=== PATIENT | male | born 1965 | race African-American/Black ===

== ENCOUNTER 2017-08-07 10:49 | Inpatient (IN) | payer OTHER ==
[~2017-08-07] VITALS: Ht 182.9 cm; Wt 145.7 kg
[2017-08-07] VITALS (7 sets, daily range): BP systolic 141–214; BP diastolic 91–157
[~2017-08-07 10:49] MED LIST: ADULT LOW DOSE81 MG PO; ALBUTEROL2.5 MG/0.5 INH; ASPIR 8181 MG PO; ATENOLOL 50 MG50 M1; CARVEDILOL25 MG PO; CELEBREX 200 M200 MG; CITRATE OF MAG296 ML PO; CLEOCIN HCL300 MG PO; CLONIDINE; CLOTRIMAZOLE-BE15 GM; COREG25 MG PO; COZAAR 25 MG TA25 M1 PO; CYCLOBENZAPRINE10 MG; FLOMAX0.4 MG PO; HYDROCHLOROTHIA25 M1; HYDROCODON-ACE1 EAC1; HYDROCODON-ACE1 EAC7 PO; HYDROCODONE-AP1 EAC6 PO; KLOR-CON 1010 MEQ; LASIX 20 MG TAB20 MG PO; LASIX 40 MG TAB40 M2 PO; LEVAQUIN 750 M750 MG PO; LEXAPRO 10 MG T10 MG; LIPITOR10 MG PO; LISINOPRIL20 MG PO; MEDROLDOSEPACK PO; OMEPRAZOLE 20 M20 M1 PO; POTASSIUM20 PO; PREDNISONE 10 M10 MG PO; PRINIVIL10 MG PO; QUINU10 PD PO; TOPROL XL50 MG PO; ULTRAM 50MG TAB50 MG; VALIUM5 MG PO; VIAGRA100 MG PO; VICODIN 5-5001 EACH PO; XANAX 0.5 MG0.5 MG PO
[2017-08-07 11:20] LABS: ABSOLUTE EOSINOPHILS 0.3 thou/uL (0.0-0.7); ABSOLUTE LYMPHOCYTES 2.1 thou/uL (0.8-5.3); ABSOLUTE MONOCYTES 0.6 thou/uL (0.0-1.2); ABSOLUTE NEUTROPHILS 3.7 thou/uL (1.6-8.1); BASOPHILS 0.7 %; HEMATOCRIT 43.2 % (42.0-52.0); HEMOGLOBIN 14.2 gm/dL (14.0-18.0); LYMPHOCYTES 31.6 %; MCH 30.1 pg (26.0-34.0); MCHC 32.8 g/dL (28.0-37.0); MCV 91.8 fL (80.0-100.0); MONOCYTES 8.6 %; MPV 8.1 fl. (7.2-11.1); NUCLEATED RBCS 0 /100WBC; PLATELET COUNT* 263 thou/uL (150-400); POLYS 55.1 %; RBC 4.71 mil/uL (4.50-6.00); RDW-CV 16.6 % (10.5-14.5); WBC 6.8 thou/uL (4.0-11.0)
[2017-08-07 11:29] LABS: ANION GAP 11 mmol/L (7-16); BUN 17 mg/dL (7-18); CALCIUM 7.8 mg/dL (8.5-10.1); CHLORIDE 106 mmol/L (98-107); CO2 25 mmol/L (21-32); CREATININE 1.3 mg/dL (0.6-1.3); GLUCOSE 102 mg/dL (70-99); POTASSIUM 3.6 mmol/L (3.5-5.1); SODIUM 142 mmol/L (136-145)
[2017-08-07 11:30] LABS: APTT 30.3 Seconds (25.0-31.3)
[2017-08-07 11:40] LABS: ALBUMIN 3.1 g/dL (3.4-5.0); ALKALINE PHOSPHATASE 92 U/L (46-116); NT-PRO BRAIN NAT PEPTIDE 4096 pg/mL (<300); SGOT 15 U/L (15-37); SGPT 17 U/L (30-65); TOTAL BILIRUBIN 0.6 mg/dL (<0.1-1.0); TOTAL PROTEIN 7.1 g/dL (6.4-8.2); TROPONIN-I LEVEL <0.06 ng/mL (<0.06)
--- NOTE | 2017-08-07 12:29 | NUR ---
AT 1055 DR. SEGURA NOTIFIED OF PT B/P.
[2017-08-07] MEDS ORDERED: COREG25 MG PO (14:03)
[2017-08-07] MEDS ORDERED: LOSARTAN-HCTZ1 EAC1 PO (14:04)
[2017-08-07] MEDS ORDERED: ATROVENT HFA14 GM INH (14:05)
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
--- NOTE | 2017-08-07 14:49 | EKG ---
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1965 Requested By: Aldo Bliss Order Number: [id number] MD: Jorge Luis Valencia Measurements Intervals [place] Rate: 82 P: 17 NH: 190 QRS: -38 QRSD: 100 T: 90 QT: 414 QTc: 484 Interpretive Statements Sinus rhythm Probable left atrial enlargement Abnormal R-wave progression, late transition LVH with secondary repolarization abnormality Inferior infarct, old Compared to ECG 05/09/2017 17:42:48 Early repolarization now present Myocardial infarct finding still present Electronically Signed On 08-07-2017 14:49:29 CDT by Jorge Luis Valencia [email or web address] <ELECTRONICALLY SIGNED> By: Jorge Luis Valencia MD, FACC 08/07/17 1449 1109 1109 Jorge Luis Valencia MD, FAC /EPI
[2017-08-08 00:59] VITALS: BP 135/80
[2017-08-08 04:13] VITALS: BP 160/89
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
[2017-08-08 05:45] LABS: CALCIUM 8.7 mg/dL (8.5-10.1); CREATININE 1.6 mg/dL (0.6-1.3); POTASSIUM 4.2 mmol/L (3.5-5.1)
[2017-08-08 08:00] VITALS: BP 160/89
[2017-08-08 08:10] LABS: HIV-1/HIV-2 ANTIBODY Non Reactive (Non Reactive)
[2017-08-08 11:02] LABS: ABSOLUTE BASOPHILS 0.1 thou/uL (0.0-0.2); ABSOLUTE LYMPHOCYTES 2.1 thou/uL (0.8-5.3); ABSOLUTE MONOCYTES 1.1 thou/uL (0.0-1.2); ABSOLUTE NEUTROPHILS 8.9 thou/uL (1.6-8.1); BASOPHILS 0.4 %; EOSINOPHILS 0.2 %; HEMATOCRIT 42.7 % (42.0-52.0); HEMOGLOBIN 13.7 gm/dL (14.0-18.0); LYMPHOCYTES 17.2 %; MCH 29.6 pg (26.0-34.0); MCHC 32.2 g/dL (28.0-37.0); MCV 91.9 fL (80.0-100.0); MONOCYTES 9.3 %; MPV 8.3 fl. (7.2-11.1); NUCLEATED RBCS 0 /100WBC; PLATELET COUNT* 260 thou/uL (150-400); POLYS 72.9 %; RBC 4.64 mil/uL (4.50-6.00); RDW-CV 16.5 % (10.5-14.5); WBC 12.3 thou/uL (4.0-11.0)
[2017-08-08 11:13] LABS: ALBUMIN 3.1 g/dL (3.4-5.0); CALCIUM 8.5 mg/dL (8.5-10.1); CREATININE 1.6 mg/dL (0.6-1.3); TOTAL BILIRUBIN 0.6 mg/dL (<0.1-1.0)
[2017-08-08 11:49] VITALS: BP 162/110
--- NOTE | 2017-08-08 13:44 | 2DMMODE ---
[place] [address] 2 D/M-MODE ECHOCARDIOGRAM Name: JEFF GUZMAN Room: [address] IN [facility]#: [id number] Admission: 08/07/17 Attend Phys: Ranjan Fuentes Discharge: Date of : 61 Date of Service: 08/08/17 1344 Report #: [id number] THIS REPORT FOR: //name// APPROVED REPORT Study performed: 08/08/2017 11:06:58 EXAM: Comprehensive 2D, Doppler, and color-flow Echocardiogram Patient Location: In-Patient Room #: [facility] Status: routine BSA: 2.58 HR: 75 bpm BP: 160/89 mmHg Rhythm: NSR Other Information Study Quality: Good Indications Congestive Heart Failure Dyspnea Chest Pain Hypertension/HDD 2D Dimensions LVEF(%): 61.42 (>50%) IVSd: 17.41 (7-11mm) LVOT Diam: 26.37 (18-24mm) LVDd: 66.99 mm PWd: 14.87 (7-11mm) Ascending Ao: 45.10 (22-36mm) LVDs: 44.33 (25-40mm) Aortic Root: 39.76 mm Lazcano's LVEF: 61.42 % Volumes Left Atrial Volume (Systole) LA ESV Index: 57.00 mL/m2 Aortic Valve AoV Peak Aleksey.: 1.19 m/s AO Peak Gr.: 5.71 mmHg LVOT Max P.98 mmHg AO Mean Gr.: 3.26 mmHg LVOT Mean P.99 mmHg LVOT Max V: 1.00 m/s AO V2 VTI: 18.37 cm LVOT Mean V: 0.65 m/s VINCE (VTI): 5.14 cm2 LVOT V1 VTI: 17.29 [place] [address] 2 D/M-MODE ECHOCARDIOGRAM Name: JEFF GUZMAN Room: [address] IN [facility].#: [id number] Admission: 08/07/17 Attend Phys: Ranjan Fuentes Discharge: Date of : 61 Date of Service: 08/08/17 1344 Report #: [id number] Mitral Valve E/A Ratio: 2.51 MV Decel. Time: 157.47 ms MV E Max Aleksey.: 1.30 m/s MV PHT: 45.67 ms MVA (PHT): 4.82 cm2 TDI E/Lateral E': 11.82 E/Medial E': 21.67 Medial E' Aleksey.: 0.06 m/s Lateral E' Aleksey.: 0.11 m/s Pulmonary Valve PV Peak Aleksey.: 1.07 m/s PV Peak Gr.: 4.57 mmHg Tricuspid Valve TR Peak Gr.: 27.88 mmHg RVSP: 32.00 mmHg Left Ventricle The left ventricle is normal size. There is normal LV segmental wall motion. Mild concentric left ventricular hypertrophy. Left ventricular systolic function is mildly decreased. LVEF is 45%. Grade IV - fixed restrictive diastolic dysfunction. Right Ventricle The right ventricle is normal size. The right ventricular systolic function is normal. Atria Left atrium is moderately dilated. The right atrium size is normal. Aortic Valve The aortic valve is normal in structure. No aortic regurgitation is present. There is no aortic valvular stenosis. Mitral Valve The mitral valve is normal in structure. Mild mitral regurgitation. No evidence of mitral valve stenosis. Tricuspid Valve The tricuspid valve is normal in structure. Trace tricuspid regurgitation. The RVSP is 30-35 [place] [address] 2 D/M-MODE ECHOCARDIOGRAM Name: JEFF GUZMAN Room: [address] IN [facility]#: [id number] Admission: 08/07/17 Attend Phys: Ranjan Fuentes Discharge: Date of : 61 Date of Service: 08/08/17 1344 Report #: [id number] The pulmonary valve is normal in structure. Trace pulmonic regurgitation. Great Vessels The aortic root is normal in size. IVC is normal in size and collapses with >50% inspiration Pericardium There is no pericardial effusion. <Conclusion> The left ventricle is normal size. Mild concentric left ventricular hypertrophy. Left ventricular systolic function is mildly decreased. LVEF is 45%. The right ventricle is normal size. Left atrium is moderately dilated. The aortic valve is normal in structure. The mitral valve is normal in structure. Mild mitral regurgitation. There is no pericardial effusion. There is normal LV segmental wall motion. <ELECTRONICALLY SIGNED> By: Nick Regalado MD, FACC 08/08/17 1344 1344 1344 Nick Regalado MD, FACC /INF
--- NOTE | 2017-08-08 14:53 | NUR ---
MET WITH PT TO DISCUSS HOME SITUATION/DC PLANNING. PT LIVES WITH 2 ROOMMATES. HE STATES THAT HE IS INDEPENDENT AND USES A CANE. IS ABLE TO DRIVE. HE WAS RELUCTANT TO SHARE HOME SITUATION STATING THAT HE WAS 'AFRAID OF TURMOIL'. ASKED PT IF HE FELT SAFE RETURNING HOME, HE HESIATED. ASKED IF HE WERE IN AN ABUSIVE SITUATION, HE STATED POSSIBLY. OFFERED [facility] [employer] AND HE WAS AGREEABLE. CALL TO FARIBA SEBASTIAN, ASKED THAT ADVOCATE COME OUT TO SPEAK TO PT. THEY WILL SEE HIM LATER TODAY
[2017-08-08 15:55] VITALS: BP 145/99
--- NOTE | 2017-08-08 17:45 | NUR ---
ASSUMED CARE OF PT AT 0730. PT CONTINUES TO BE A&O X4 CALM AND COOPERATIVE. HE HAS HAS NO C/O PAIN OR DISTRESS TODAY AND HAS BEEN TRACING SR ON THE MONITOR. PT UP WIH SBA TO THE BATHROOM AND HAS BEEN VOIDING ADEQUATE AMOUNTS OF YELLOW URINE. PT VSS O N 2L VIA NC. PT HAD A BM THIS MORNING AND ALSO A SHOWER. PT HAS A GOOD APPETITE AND IS ON A 2G SODIUM DIET. HE HAS ATE GREATER THAN 90% OF ALL MEALS TODAY. NURSING WILL CONTINUE TO MONITOR
[2017-08-08 19:40] VITALS: BP 170/105
[2017-08-09 00:19] VITALS: BP 130/92
[2017-08-09 04:30] LABS: ABSOLUTE EOSINOPHILS 0.2 thou/uL (0.0-0.7); ABSOLUTE MONOCYTES 0.7 thou/uL (0.0-1.2); ABSOLUTE NEUTROPHILS 4.3 thou/uL (1.6-8.1); BASOPHILS 0.5 %; EOSINOPHILS 1.8 %; HEMATOCRIT 42.9 % (42.0-52.0); HEMOGLOBIN 14.1 gm/dL (14.0-18.0); LYMPHOCYTES 36.5 %; MCH 30.3 pg (26.0-34.0); MCV 91.8 fL (80.0-100.0); MONOCYTES 8.4 %; MPV 8.8 fl. (7.2-11.1); NUCLEATED RBCS 0 /100WBC; PLATELET COUNT* 270 thou/uL (150-400); POLYS 52.8 %; RBC 4.67 mil/uL (4.50-6.00); RDW-CV 16.9 % (10.5-14.5); WBC 8.2 thou/uL (4.0-11.0)
[2017-08-09 04:35] VITALS: BP 136/97
--- NOTE | 2017-08-09 04:59 | NUR ---
A&O X4 CALM COOPERITVE. DENIES PAIN. SR ON THE MONITOR. 2L O2. STAND BY ASSIST WITH CANE. BP WAS ELEVATED CLONIDINE ORDERED BP WNL. GIVEN XANAX FOR ANXIETY. PT REPORTS SOA ON EXERTION. VITALS WNL. FALL PRECAUTIONS IN PLACE. HOURLY ROUNDING FOR SAFETY.
--- NOTE | 2017-08-09 07:30 | NUR ---
CHANGE OF SHIFT, BEDSIDE REPORT GIVEN ASSUMED PATIENT CARE PATIENT SEEN AT BEDSIDE, ASLEEP
[2017-08-09 08:00] VITALS: BP 153/109
[2017-08-09 12:14] VITALS: BP 163/96
--- NOTE | 2017-08-09 12:47 | CON ---
[address] [address] CONSULTATION Name: MEGANJEFFPAT CHAVEZ Room: [address] IN .R.#: [id number] Admission: 08/07/17 Attend Phys: Ghulam Jean-Baptiste Discharge: Date of : 61 Report #: [id number] THIS REPORT FOR: //name// CC: Ranjit Polk DATE OF SERVICE: 08/07/2017 CARDIOLOGY CONSULTATION INDICATION: Acute on chronic combined heart failure. HISTORY OF PRESENT ILLNESS: The patient is a pleasant 52-year-old male with a long history of nonischemic cardiomyopathy, felt to be at least in part due to longstanding hypertension. The patient was admitted with exacerbation. He has had symptoms of shortness of breath, orthopnea and dyspnea on exertion. He is not having chest pain. He reports running out of some of his medications recently. He is without other cardiac complaints at this time. PAST MEDICAL HISTORY: 1. Congestive heart failure. 2. Hypertension. 3. CVA. 4. Back surgery in 2011. 5. Left knee surgery. 6. Lap band in 2007. SOCIAL HISTORY: The patient smokes a pack of cigarettes weekly. He reports some substance abuse in the past. ALLERGIES: None documented. HOME MEDICATIONS: Per list, Xanax 0.5 mg b.i.d. p.r.n., aspirin 81 mg daily, atorvastatin 10 mg at bedtime, carvedilol 25 mg b.i.d., furosemide 60 mg q.a.m., hydrocodone 5/325 one tablet q. 12 hours p.r.n., Atrovent inhaler 2 puffs q.i.d., lisinopril 20 mg daily, losartan/hydrochlorothiazide 100/25 one tablet daily, Toprol-XL 50 mg daily, Viagra 100 mg daily, Flomax 0.4 mg daily. REVIEW OF SYSTEMS: NEUROLOGIC: He denies convulsions, seizures or focal paralysis. GENERAL: There is no unexplained weight loss or fever. RESPIRATORY: Has an occasional cough that is nonproductive. He denies any underlying any lung disease. CARDIOVASCULAR: As outlined above. ENDOCRINE: No history of diabetes [place] [address] CONSULTATION Name: JEFF GUZMAN KATHY Room: [address]#: [id number] Admission: 08/07/17 Attend Phys: Ghulam Jean-Baptiste Discharge: Date of : 61 Report #: [id number] GASTROINTESTINAL: No vomiting, hematemesis, melena or hematochezia. GENITOURINARY: No dysuria or hematuria. HEMATOLOGIC AND LYMPHATIC: No history of anemia, bleeding disorder, blood clots or cancer. ALLERGIC AND IMMUNOLOGIC: He has no significant medical or seasonal allergies. PSYCHIATRIC: No depression. Has mild anxiety. MUSCULOSKELETAL: He has arthritis without connective tissue disease. SKIN: No recent rashes, hives or chronic skin conditions. EYES: He does not wear glasses. He has no acute loss in vision. EARS, NOSE, MOUTH AND THROAT: He denies decreased hearing or epistaxis. PHYSICAL EXAMINATION: VITAL SIGNS: Blood pressure 152/104, pulse 82 and regular. GENERAL: This is a moderately obese, pleasant male, in no distress. Mood and affect appropriate. HEENT: Extraocular muscles intact. Mucous membranes moist. NECK: Shows no jugular venous distension. There are no carotid bruits examination. CHEST: Reveals mildly decreased breath sounds with basilar rales. HEART: Reveals a regular rhythm without gallop or murmur. ABDOMEN: Reveals a protuberant abdomen, soft, nontender. Bowel sounds present. EXTREMITIES: Shows no edema. Peripheral pulses 2+ and palpable. SKIN: Dry. LABORATORY DATA: Reviewed. CBC is within normal limits. Coags are normal. Lactic acid is normal. Metabolic profile essentially normal with the exception of glucose of 102. Troponin less than 0.06. NT-proBNP 4096. EKG shows sinus rhythm, left ventricular hypertrophy, nonspecific ST-T wave abnormalities. No acute changes noted. Chest x-ray shows cardiomegaly and mild vascular congestion. IMPRESSION AND RECOMMENDATION: 1. Acute on chronic combined heart failure. Continue diuresis with IV furosemide. I will adjust his Toprol and ARB accordingly for treatment of his underlying heart failure. Follow daily I's and O's. 2. Hypertension. Blood pressure moderately elevated at present. I believe he will improve once we get him back on his blood pressure medications. We will titrate as needed. 3. Nonischemic cardiomyopathy, in part due to hypertension, presently stable. Echocardiogram shows ejection fraction of 35-40%, which is not significantly changed from prior studies. Continue adjusting heart failure medications. <ELECTRONICALLY SIGNED> By: Jorge Luis Valencia MD, FACC 08/09/17 1247 1623 Micmathieu Valencia MD, FACC /nt
[2017-08-09 16:47] VITALS: BP 135/89
--- NOTE | 2017-08-09 19:39 | NUR ---
PATIENT IN BED ASLEEP O2 ON AT 2L NC CALL LIGHT IN BED AT SIDE AND INSTRUCTION GIVEN EARLIER REF SCDS EARLIER
[2017-08-09 20:00] VITALS: BP 129/82
[2017-08-10] VITALS: BP 130/84
[2017-08-10 04:00] VITALS: BP 152/98
--- NOTE | 2017-08-10 05:19 | NUR ---
ASSUMED PT CRAE AT 1930, PT IS A&OX4, TRACING NSR ON THE MONITOR, ON RA SATTING MID TO HIGH 90'S. PT DENIES ANY PAIN OR NEEDS AT THIS TIME. PT WAS AWAKE MOST OF THE NIGHT THIS SHIFT. PT TOOK A SHOWER THIS SHIFT. UP STB WITH HIS CANE. BED IN LOW POSITION, CALL LIHGHT IN REACH, BED ALARM ON, YELLOW ARM BAND AND SOCKS IN PLACE. HOURLY ORUNDING COMPLETED FOR PT SAFETY.
--- NOTE | 2017-08-10 07:25 | NUR ---
CHANGE OF SHIFT BEDSIDE REPORT GIVEN ASSUMED PATIENT CARE PATIENT SEEN AT BEDSID, ASLEEP
[2017-08-10 08:00] VITALS: BP 158/117
[2017-08-10 08:22] LABS: ABSOLUTE EOSINOPHILS 0.2 thou/uL (0.0-0.7); ABSOLUTE LYMPHOCYTES 2.7 thou/uL (0.8-5.3); ABSOLUTE MONOCYTES 0.7 thou/uL (0.0-1.2); ABSOLUTE NEUTROPHILS 3.3 thou/uL (1.6-8.1); BASOPHILS 0.7 %; EOSINOPHILS 3.4 %; HEMATOCRIT 41.9 % (42.0-52.0); LYMPHOCYTES 38.8 %; MCH 30.2 pg (26.0-34.0); MCHC 33.4 g/dL (28.0-37.0); MCV 90.5 fL (80.0-100.0); MONOCYTES 9.7 %; MPV 8.5 fl. (7.2-11.1); NUCLEATED RBCS 0 /100WBC; PLATELET COUNT* 270 thou/uL (150-400); POLYS 47.4 %; RBC 4.64 mil/uL (4.50-6.00); RDW-CV 16.4 % (10.5-14.5)
[2017-08-10 08:25] LABS: CALCIUM 8.1 mg/dL (8.5-10.1); CREATININE 1.5 mg/dL (0.6-1.3); POTASSIUM 3.8 mmol/L (3.5-5.1)
[2017-08-10 11:00] LABS: BE 4.7 mmol/L (-2 to +3); HCO3 30.3 mmol/L (22.0-26.0); PCO2 48.4 mmHg (35.0-45.0); PO2 63.3 mmHg (75.0-100.0); pH 7.415 (7.340-7.450)
[2017-08-10 11:42] VITALS: BP 126/90
--- NOTE | 2017-08-10 18:50 | NUR ---
PATIENT LAYING IN BED AND RESTING NO C/O PAIN CALL LIGHT IN REACH AND INSTRUCTIONS GIVEN AND FOLLOWED BED ALARM ON
[2017-08-10 21:36] LABS: URINE BILIRUBIN NEGATIVE (Negative); URINE BLOOD NEGATIVE (Negative); URINE CLARITY CLEAR; URINE COLOR YELLOW; URINE GLUCOSE-RANDOM NEGATIVE (Negative); URINE KETONES NEGATIVE (Negative); URINE LEUKOCYTES-REFLEX NEGATIVE (Negative); URINE NITRITE-REFLEX NEGATIVE (Negative); URINE PROTEIN NEGATIVE (Negative); URINE SPECIFIC GRAVITY 1.015 (1.005-1.030); URINE UROBILINOGEN 0.2 E.U./dl (0.2-1.0)
[2017-08-10 22:06] LABS: INFLUENZA A ANTIGEN None Detected (None Detect); INFLUENZA B ANTIGEN None Detected (None Detect)
[2017-08-11] VITALS: BP 130/90
[2017-08-11 04:00] VITALS: BP 129/87
--- NOTE | 2017-08-11 04:49 | NUR ---
ASSUMED CARE OF PATIENT AT 1900 THE PATIENT REMAINS ON THE MONITOR O2 SAT MAINTAINED ON RA CONTINUES TO BE UP WITH ASSIST OF 1 WITH CANE TO BR THE ROUTINE REGIMEN CONTINUES TO BE EFFECTIVE FOR SX MANAGEMENT SAFETY INTERVENTIONS CONTINUE BED LOWERED WHEELS LOCKED CALL LIGHT IN REACH SIDE RAILS UP REPORT TO BE GIVEN TO ONCOMING RN IN AM PATIENT REMOVED IV INTERMEDIATE ACCOUNTANT WENT IN TO REPLACE PATIENT IV WHILE RN WAS ATTEMPTING TO EXAMINE FOREARM SITES PATIENT OFFERED RIGHT ARM REFUSED LEFT UNABLE TO OBTAIN IV ACCESS AT THIS TIME
[2017-08-11 08:15] VITALS: BP 142/83
--- NOTE | 2017-08-11 10:42 | NUR ---
RECIEVED REPORT FROM LINCOLN AND ASSUMED CARE OF PT @ 9973. PT A/O X4, BP SLIGHTLY ELEVATED @ 142/83, LUNGS SOUND CLEAR, PT STATES BM YESTERDAY, NO IV ACCESS, PT IS CALM AND COOPERATIVE AND DENIES PAIN AT TIME OF ASSESSMENT. PT IS UP WITH ONE AND CANE.PT WAS LEFT RESTING IN BED WITH FALL PRECAUTIONS AND CALL LIGHT IN PLACE. GOALS DISCUSSED WITH PT TO GET UP FOR MEALS AND PERSONAL HYGIENE.
[2017-08-11 16:00] VITALS: BP 108/75
--- NOTE | 2017-08-11 18:56 | NUR ---
PT HAS BEEN NON-COMPLIANT,MANIPULATIVE WITH ODD BEHAVIOR THROUGHOUT SHIFT. PT THREW UP IN URINAL THAT HAD URINE IN IT BUT DIDNT CALL OUT FOR HELP OR TO LET ANYONE KNOW. WHEN NURSE NOTICED THE URINAL, PT STATED HE FELT FINE AND LAUGHED. PT KEPT PUTTING OFF GETTING IN THE SHOWER BUT WOULD NOT ALLOW STAFF TO PUT BACK ON HEART MONITOR FROM 3023-0890.PT THEN WENT DOWN TO SIT DOWN SHOWER WITH TECH. PT ALSO REFUSED FOR ANYONE INCLUDING DOCTORS TO COME INTO HIS ROOM UNTIL NOON. PT WAS LEFT RESTING IN BED WITH FALL PRECAUTIONS AND CALL LIGTH IN PLACE. HOURLY ROUNDING COMPLETED FOR PT SAFETY.
[2017-08-11 20:00] VITALS: BP 130/95
[2017-08-12] VITALS: BP 131/74
[2017-08-12 04:00] VITALS: BP 139/87
--- NOTE | 2017-08-12 04:52 | NUR ---
ASSUMED CARE OF PATIENT AT 1900 THE PATIENT REMAINS SR ON THE MONITOR O2 SAT MAINTAINED ON 1LNC PER PATIENT REQUEST DURING NIGHT COMPLAINTS OF SOA WHILE AT REST O2 SAT REMAINED WNL CONTINUES TO BE UP WITH STANDBY ASSIST DURING THE NIGHT FREQUENT REQUEST FOR SNACKS,DRINKS EXPRESSED LONLINESS STATING HE WISHED A STAFF MEMBER WOULD COME IN AND WATCH A MOVIE WITH HIM THE ROUTINE REGIMEN CONTINUES TO BE EFFECTIVE FOR SX MANAGEMENT SAFETY INTERVENTIONS CONTINUE BED LOWERED WHEELS LOCKED CALL LIGHT IN REACH SIDE RAILS UP REPORT TO BE GIVEN TO ONCMAYITO ANG
[2017-08-12] MEDS ORDERED: METOLAZONE 5 MG5 MG PO (07:58)
[2017-08-12 09:22] VITALS: BP 113/70
[2017-08-12] MEDS ORDERED: LASIX 80 MG TAB80 MG PO (09:50)
[2017-08-12] MEDS ORDERED: PROCARDIA XL60 MG PO (09:51)
[2017-08-12] MEDS ORDERED: COZAAR 50 MG TA50 M2 PO (09:51)
[2017-08-12] MEDS ORDERED: METOPROLOL SUC200 MG PO (09:52)
--- NOTE | 2017-08-12 10:22 | NUR ---
ASSUMED CARE OF PT THIS AM AROUND 0715- BILL ADJUSTER IN PLACE ORDERED, TRACING SR WITH 1ST DEGREE- UPON ASSESSMENT PT NOTED TO BE RESTING IN BED, WATCHING TV- PT A&O X3 WITH FORGETFULLNESS NOTED- CONTINENT OF BOWEL AND BLADDER, USING URINAL AT BEDSIDE- SBA WITH TRANSFERS FOR SAFETY USING CANE- DIMINISHED LUNG SOUNDS NOTED, OCCASIONAL COUGH- VSS, O2 SAT 94% ON RA- DENIES DYSPNEA AT THIS TIME-ABDOMEN SOFT/OBESE/NON-TENDER,BS X4 QUADS- LAST BM REPORTED 08/10/17- +1 BLE EDEMA NOTED- NO IV ASSESS NOTED- GOOD PO INTKAE NOTED THIS AM, WITH SEVERAL REQUEST FOR SNACKS- D/C PENDING NEURO INPUT- DAYANARA CONTACT AND STATES PT TO REFUSE TO ALOW ASSESSMENT X3, BUT WITH REATTEMP AGAIN THIS AM- CALL LIGHT AND PERSONAL BELONGINGS WITH IN REACH- HOURLY ROUNDS IN PLACE R/T SAFETY/NEEDS- ALL NEEDS MET AT THIS TIME-WCTM
[2017-08-12 12:24] VITALS: BP 144/77
--- NOTE | 2017-08-12 13:17 | NUR ---
OKAY FOR D/C RECIVED PER AFTER CONVERSATION WITH DAYANARA- PT CONTINUES TO DENY NEURO INPUT, REFUSES TO HAVE OP OPEN MRI SET UP OFFERED PRIOR TO D/C WELL- NO IV IN PLACE TO D/C- PROPRIETARY TRADER D/C PRIOR TO D/C- D/C TEACHING/EDUCATION/F/U DISCUSSED WITH VERBAL UNDERSTANDING RECIEVED PER PT- PT UPDATED ON NEED TO INTERVENTIONAL SALE CONSULTANT [facility]CR[facility] THAT HAVE BEEN CALLED IN TO [facility] ON FILE, PT VOICES UNDERSTANDING- WRITTEN EDUCATION PROVIED TO PT AT TIME OF D/C-HOME MEDICATIONS OBTAINED FORM PHARMACY PRIOR TO D/C AND GIVEN TO PT PRIOR TO D/C- BELONGINGS PACKED AND ACCOUNTED FOR PER PT- PT UNABLE TO OBTAIN OWN RIDE FOR D/C- PT NOTED TO BE APPREHENSIVE AT TIME OF D/C AND NOTED TO BECOME ANGRY, REFUSSING TO ALOW THIS NURSE TO GIVE D/C TEACHING AT FIRST- NURSE RESEARCH AND DEVELOPMENT SPECIALIST HERE TO HELP CALM PT AND ABLE TO GIVE D/C TEACHING-CAB CALLED AND ARRANGED FOR D/C- PT CURRENLTY RESTING IN BED SIDE CHAIR AWAITING CAB ARRIVAL- ALL NEEDS MET AT THIS TIME-WCTM
--- NOTE | 2017-08-13 08:33 | NUR ---
PT EVALUATION ATTEMPTED ON 08/10/17, PT DECLINED SERVICES. PT WAS DISCHARGED ON 08/12/17 PRIOR TO COMPLETION OF PT EVALUATION.
--- NOTE | 2017-08-23 19:10 | EEG ---
[address] [address] EEG STUDY REPORT Name: MEGANJEFF KATHY Room: [address] IN M.R.#: [id number] Admission: 08/07/17 Attend Phys: Ghulam Jean-Baptiste Discharge: 08/12/17 Date of : 61 Report #: [id number] THIS REPORT FOR: //name// CC: Ranjit Fuentes DATE OF SERVICE: 08/10/2017 This patient is being evaluated for confusion. EEG was done by placing the electrodes by standard 10-20 system of electrode placement. Both referential and sequential montages were used for recording. Background activity in this patient's EEG is about 7-8 Hz and 30 microvolt. This EEG is intermixed with theta range slowing on both sides. Photic stimulation is unremarkable. The patient appeared to be drowsy during part of this EEG and that is associated with bilateral slowing. Throughout the record, no active epileptiform activity was noticed. IMPRESSION: This patient's EEG demonstrates bilateral intermixed slowing. That is a nonspecific abnormality, which can occur with encephalopathy, effect of psychotropic medication, dementia, etc. Clinical correlation is recommended. <ELECTRONICALLY SIGNED> By: Jhonatan Acevedo MD 08/23/17 1910 0916 0923Jhonatan Acevedo MD /nt
--- NOTE | 2017-08-23 19:10 | CON ---
[address] [address] CONSULTATION Name: JEFF GUZMAN Room: [address] IN .R.#: [id number] Admission: 08/07/17 Attend Phys: Ghulam Jean-Baptiste Discharge: 08/12/17 Date of : 61 Report #: [id number] THIS REPORT FOR: //name// CC: Ranjit Fuentes DATE OF SERVICE: 08/10/2017 HISTORY OF PRESENT ILLNESS: This is a 52-year-old male patient who does not provide very good history. Neurology consultation is being requested to evaluate the patient for confusion. He is irritated for some reason. He did not cooperate very well with the examination. All of it makes it very difficult to do any good consultations on him. He does not think he is confused. Therefore, he does not know how long it has been confused, what makes it better or worse. Later on, on the examination, he does appear to be confused. He denies any associated head trauma or any focal deficits. REVIEW OF SYSTEMS: Indicate that he was admitted with shortness of breath. He has a history of back pain. He indicates he had 2 strokes. He does not give me any more history in that regard. He does have a history of hypertension. He has a long record in the computer and has seen multiple physicians in that regard over a period of time. He does have a history of nonischemic cardiomyopathy. At one time, he had a consultation with Infectious Disease because of febrile illness. He does have a history of COPD. He does have some back pain. He denies any new symptoms in eye or ENT. He is not having any active chest pain, respiratory difficulty, GI, , constitutional, dermatological, hematological, psychiatric, throat, allergic or endocrine symptom associated with present symptomatology. PAST MEDICAL HISTORY: Positive for stroke. FAMILY HISTORY: Negative for early age stroke. SOCIAL HISTORY: He has a history of smoking. He is very irritable and would not talk and record indicate that he does have a history of drug abuse, but apparently does not drink alcohol. PHYSICAL EXAMINATION: Indicate he is alert and responsive. His speech looks intact. He would not cooperate with the orientation, memory and fund of knowledge . Cranial nerve examination 2-12 was attempted. I do not see any focal abnormality. His strength, sensation, reflexes and tone looks symmetrical, but examination is very suboptimal. He had knee surgeries making it even more difficult. He gets the position sense most of the time, but takes long time to do it and sometime he did not do it. Similarly touch, he did not do very well. I do not know how much with intention. There is no meningeal sign. I could not look at the fundus. He does [place] [address] CONSULTATION Name: MEGANJEFF Room: [address] IN [facility]#: [id number] Admission: 08/07/17 Attend Phys: Ghulam Jean-Baptiste Discharge: 08/12/17 Date of : 61 Report #: [id number] He is a very well developed individual who does not have any dysmorphic features of eyes, ears and face. His hearing and vision looks adequate. His pulses are difficult to feel. He has no edema, cyanosis or jaundice. Cardiac examination is mostly unremarkable. He has been seen by Cardiology. He does not have marked respiratory difficulty, but have some rhonchi. Blood pressure is 126/90, respirations 16, pulse is 89, temperature is 97.5. LABORATORY DATA: Indicate a white count of 7.0, GFR is 59. He did have a CT scan of the head, which was reviewed. It showed a question of old CVA. IMPRESSION: It is not clear what the etiology of the patient's altered mental status is. His blood gases are somewhat abnormal and that may be contributing to his symptoms. I do not think there is any FIELD RETURN REPAIRER infection. He indicated that there are some metals in his body and he does not know whether the MRI compatible or not. I will start with an EEG and a carotid ultrasound. He is not very enthusiastic to get an MRI done and presently was not able to cooperate. I will check this workup with EEG and a carotid Doppler and then decide about any further testing we need to do in this patient. I discussed all of this with the patient at long time, but finally he agreed to have this testing, which will be scheduled and will follow up with you. Thank you very much for this referral. <ELECTRONICALLY SIGNED> By: Jhonatan Acevedo MD 08/23/17 1910 1445 [id number] Acevedo MD /nt
== END 2017-08-12 13:50 | disposition home or self-care (01) | DRG 70 ==
LOC: M.ERS 10:49 → M.TBA-ER 12:25 → M.2W 12:25
PROVIDERS: Family Medicine; Internal Medicine Cardiovascular Disease; ADMIT Internal Medicine
DX: G93.40 Encephalopathy, unspecified (principal); R65.11 Systemic inflammatory response syndrome (SIRS) of non-infectious origin with acute organ dysfunction; I50.43 Acute on chronic combined systolic (congestive) and diastolic (congestive) heart failure; Z68.41 Body mass index [BMI] 40.0-44.9, adult; I42.8 Other cardiomyopathies; I11.0 Hypertensive heart disease with heart failure; E66.01 Morbid (severe) obesity due to excess calories; M19.90 Unspecified osteoarthritis, unspecified site; J44.9 Chronic obstructive pulmonary disease, unspecified; F17.210 Nicotine dependence, cigarettes, uncomplicated; F12.90 Cannabis use, unspecified, uncomplicated; I16.0 Hypertensive urgency; Z79.899 Other long term (current) drug therapy; Z86.73 Personal history of transient ischemic attack (TIA), and cerebral infarction without residual deficits

== ENCOUNTER 2017-11-12 10:04 | Inpatient (IN) | payer OTHER ==
[~2017-11-12] VITALS: Ht 182.9 cm; Wt 139.3 kg
[~2017-11-12 10:04] MED LIST changes: +ATROVENT HFA14 GM INH; +COZAAR 50 MG TA50 M2 PO; +LASIX 80 MG TAB80 MG PO; +LOSARTAN-HCTZ1 EAC1 PO; +METOLAZONE 5 MG5 MG PO; +METOPROLOL SUC200 MG PO; +PROCARDIA XL60 MG PO
[2017-11-12 10:05] VITALS: BP 134/103
[2017-11-12 10:30] LABS: ABSOLUTE EOSINOPHILS 0.2 thou/uL (0.0-0.7); ABSOLUTE LYMPHOCYTES 1.7 thou/uL (0.8-5.3); ABSOLUTE MONOCYTES 0.4 thou/uL (0.0-1.2); BASOPHILS 0.6 %; EOSINOPHILS 3.1 %; HEMOGLOBIN 13.8 gm/dL (14.0-18.0); LYMPHOCYTES 31.7 %; MCH 30.4 pg (26.0-34.0); MCHC 33.7 g/dL (28.0-37.0); MCV 90.1 fL (80.0-100.0); MONOCYTES 7.4 %; MPV 8.5 fl. (7.2-11.1); NUCLEATED RBCS 0 /100WBC; PLATELET COUNT* 276 thou/uL (150-400); POLYS 57.2 %; RBC 4.55 mil/uL (4.50-6.00); RDW-CV 16.6 % (10.5-14.5); WBC 5.3 thou/uL (4.0-11.0)
[2017-11-12 10:42] LABS: INR 1.1; PROTIME 10.9 Seconds (9.20-11.50)
[2017-11-12 10:43] LABS: ANION GAP 8 mmol/L (7-16); BUN 15 mg/dL (7-18); CALCIUM 7.7 mg/dL (8.5-10.1); CHLORIDE 104 mmol/L (98-107); CO2 26 mmol/L (21-32); CREATININE 1.6 mg/dL (0.6-1.3); GLUCOSE 124 mg/dL (70-99); POTASSIUM 3.2 mmol/L (3.5-5.1); SODIUM 138 mmol/L (136-145)
[2017-11-12 10:53] LABS: ALBUMIN 2.8 g/dL (3.4-5.0); ALKALINE PHOSPHATASE 90 U/L (46-116); LIPASE 95 U/L (73-393); MAGNESIUM 1.8 mg/dL (1.8-2.4); NT-PRO BRAIN NAT PEPTIDE 3788 pg/mL (<300); SGOT 9 U/L (15-37); SGPT 10 U/L (30-65); TOTAL BILIRUBIN 0.9 mg/dL (<0.1-1.0); TOTAL PROTEIN 6.4 g/dL (6.4-8.2); TROPONIN-I LEVEL <0.06 ng/mL (<0.06)
[2017-11-12 11:22] VITALS: BP 131/98
[2017-11-12 12:00] VITALS: BP 126/95
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
[2017-11-12] MEDS ORDERED: HYDROCHLOROTHIA25 M2 PO (12:40)
[2017-11-12] MEDS ORDERED: COZAAR 50 MG TA50 M2 PO (12:40)
[2017-11-12] MEDS ORDERED: METOPROLOL SUCC50 MG PO (12:41)
[2017-11-12] MEDS ORDERED: COREG25 MG PO (12:42)
[2017-11-12] MEDS ORDERED: LISINOPRIL20 MG PO (12:42)
[2017-11-12 15:24] LABS: BE -0.6 mmol/L (-2 to +3); HCO3 23.8 mmol/L (22.0-26.0); PCO2 38.3 mmHg (35.0-45.0); PO2 62.6 mmHg (75.0-100.0); pH 7.411 (7.340-7.450)
[2017-11-12 16:00] VITALS: BP 130/87
--- NOTE | 2017-11-12 17:55 | NUR ---
PATIENT WORKED WITH PT THIS EVENING. FALL RISK PROTOCOL IN PLACE. MG GIVEN IV PER DR. COVINGTON AND K+ REPLACED PO PER ORDERS. ABG RESULTS PAGED TO DR. COVINGTON. RUBBER FLAP CUTTER TRACING SINUS RHYTHM. NO COMPLAINTS OF PAIN.
--- NOTE | 2017-11-12 18:44 | EKG ---
[place] [address] ELECTROCARDIOGRAM REPORT Name: JEFF GUZMAN Room: [address] IN .R.#: [id number] Admission: 11/12/17 Attend Phys: José Toscano Discharge: Date of : 61 Report #: [id number] THIS REPORT FOR: //name// [facility] ED Test Date: 2017-11-12 Test Time: 10:08:12 Pat Name: JEFF GUZMAN Department: Room: Gender: Marketing Communications Leader: Emily ECKERT : 1965 Requested By: Aldo Bliss Order Number: [id number] MD: Nick Regalado Measurements Intervals [place] Rate: 70 P: 24 RI: 194 QRS: -31 QRSD: 107 T: 94 QT: 458 QTc: 495 Interpretive Statements Sinus rhythm Probable left atrial enlargement Abnormal R-wave progression, late transition Left ventricular hypertrophy Inferior infarct, old Baseline wander in lead(s) V3 Compared to ECG 08/07/2017 11:09:29 Early repolarization no longer present Myocardial infarct finding still present Electronically Signed On 11-12-2017 18:44:23 CDT by Nick Regalado [email or web address] <ELECTRONICALLY SIGNED> By: Nick Regalado MD, FAC 11/12/17 1844 1008 1008 Nick Regalado MD, FAC /EPI
[2017-11-12 20:00] VITALS: BP 117/82
[2017-11-13 01:04] VITALS: BP 125/92
[2017-11-13 03:37] VITALS: BP 135/92
--- NOTE | 2017-11-13 06:04 | NUR ---
PT AWAKE UNTIL AFTER MIDNIGHT, REQUESTING SEVERAL SNACKS AND BOX LUNCH. O2 2L SAT 98%. SLIV. INCONTINENT EPISODE IN MIDDLE OF THE SHIFT AND REQUESTING SHOWER. UP WITH CANE INTO WHEELCHAIR TO SHOWER CHAIR. DENIES PAIN. ABLE TO USE CALL LITE AND MAKE NEEDS KNOWN. XANAX GIVEN AT HS.
[2017-11-13 07:30] VITALS: BP 121/83
[2017-11-13 08:29] LABS: CALCIUM 8.7 mg/dL (8.5-10.1); CREATININE 1.9 mg/dL (0.6-1.3); POTASSIUM 4.8 mmol/L (3.5-5.1)
--- NOTE | 2017-11-13 10:46 | NUR ---
SW met with pt to complete initial assessment, introduce self, and SW role. Pt alert and oriented. Pt tearful, repetitive speech, nondescript on what exactly was bothering pt..."I'm at a crossroads", "I don't know".... SW discussed pt hx with hospital stays and asked about pt living alone or if pt has 2 roommates. Pt was not clear on answer, pt said that sometimes they are around but when asked if pt felt pt had a support system pt said no and that he feels alone. Pt has a brother in [place]. Pt explained he feels as if he is getting older and said he agreed that he would accept any resources available. SW discussed previous [facility] that CM provided to pt but pt said that he did not recall that service/resource. SW to follow to provide resources/referrals as need and assist with safe dc planning.
[2017-11-13 11:32] VITALS: BP 112/75
[2017-11-13 16:00] VITALS: BP 140/88
[2017-11-13 16:06] LABS: AMP/METHAMP POSITIVE (Negative); BARBITURATES Negative (Negative); BENZODIAZEPINES Negative (Negative); COCAINE Negative (Negative); METHADONE Negative (Negative); OPIATES POSITIVE (Negative); PCP Negative (Negative); THC POSITIVE (Negative)
--- NOTE | 2017-11-13 17:24 | NUR ---
PT WITH SL TO R HAND. PT USING URINAL WITHOUT DIFFICULTY. PT SEEN BY CASE MANAGEMENT AND SPEECH TODAY. PT STILL REC BREATHING TREATMENTS FROM RT. CARDIAC REHAB NURSE ATTEMPTED EVAL BUT PT WAS TOO SLEEPY.
[2017-11-13 20:00] VITALS: BP 178/72
[2017-11-14] VITALS: BP 127/75
[2017-11-14 04:20] VITALS: BP 125/81
--- NOTE | 2017-11-14 06:26 | NUR ---
PT TEARFUL AT START OF SHIFT, STATES HE MISSES HIS EXWIFE. VOICED REGRETS AND SADNESS, REASSURANCE AND EMOTIONAL SUPPORT GIVEN. RECEIVED XANAX AND HYDROCODONE WITH GOOD RESULT AND ABLE TO SLEEP SEVERAL HOURS. AWAKE THIS MORNING REQUESTING SNACKS- GIVEN. R HAND SL. ROOM AIR SAT 97%. RT TX GIVEN ORDERED. TO HAVE CXR TODAY. TELE SR. UP WITH ASSIST AND CANE. USING URINAL TO VOID AT TIMES OVERNIGHT. ABLE TO USE CALL LITE AND MAKE NEEDS KNOWN. POSSIBLE DISCHARGE TODAY.
--- NOTE | 2017-11-14 08:38 | CON ---
[address] [address] CONSULTATION Name: JEFF GUZMAN Room: [address] IN M.R.#: [id number] Admission: 11/12/17 Attend Phys: José Toscano Discharge: Date of : 61 Report #: [id number] THIS REPORT FOR: //name// CC: Linda Cantrell REASON FOR CONSULTATION: Respiratory failure. HISTORY OF PRESENT ILLNESS: The patient is a 52-year-old male patient with history of smoking, who actually actively smokes. He is not on any oxygen at home. Also, there is a questionable history of obstructive sleep apnea, although he told me he had a sleep study in the past and he was told he does not have sleep apnea. He has history of daytime sleepiness, snoring and interrupted sleep, that would suggest sleep apnea. He presented to the hospital with increasing shortness of breath and chest discomfort in addition to wheezes. He has a background history of congestive heart failure. He denied lower extremity edema at this point, but he had the lower extremity edema on and off. He denied any fever, vomiting or chills. He denied tenderness, but he reported history of wheezes. He denied any sick contacts, denied any runny nose or sore throat. He walks with a cane and reports increased dyspnea on exertion. ALLERGIES: No known drug allergies. PAST MEDICAL HISTORY: History of congestive heart failure and actually, the record indicated that he had systolic dysfunction with ejection fraction of 20% back in 2016. He has hypertension, back surgery back in 2011, and lap band in 2007. He has left leg surgery, history of stroke, COPD and degenerative joint disease. HOME MEDICATIONS: He is on Flomax, Tylenol, hydrocodone, Viagra, DuoNeb, Lasix, hydrochlorothiazide, losartan, Coreg, lisinopril in addition to aspirin. REVIEW OF SYSTEMS: Full system reviewed with the patient, negative other than those mentioned above. SOCIAL HISTORY: He smokes cigars in addition to cigarettes, does not drink alcohol excessively, does not abuse drugs. PHYSICAL EXAMINATION: VITAL SIGNS: He was on 2 L oxygen with saturation more than 90%, blood pressure 120/83, pulse rate of 72, afebrile. GENERAL APPEARANCE: Obese gentleman, awake, alert, oriented. Although he is comfortable at rest, when he speaks full sentences, he becomes tachypneic. HEENT: Normocephalic, atraumatic. Pupils reactive to light. External ear looks healthy and normal. Mallampati of 2-3. NECK: Supple. CHEST: Diminished air movement bilaterally, [place] [address] CONSULTATION Name: JEFF GUZMAN Room: [address] IN [facility]#: [id number] Admission: 11/12/17 Attend Phys: José Toscano Discharge: Date of : 61 Report #: [id number] definite wheezes. HEART: S1, S2, no murmur. ABDOMEN: Obese, soft, lax, nontender. EXTREMITIES: Lower extremities, no edema noted. No calf tenderness. SKIN: Normal for age and race. PSYCHIATRIC: Mood and affect anxious. Good insight and judgment. LYMPHATICS: No palpable lymph nodes. NEUROLOGIC: Moving all 4 extremities spontaneously. No focal weakness. LABORATORY DATA: His chest x-ray showed signs of congestive heart failure with cardiomegaly and pulmonary vascular congestion. His white blood count is 5.3, hemoglobin 13.8 and platelets of 276. His pH was 7.4, pCO2 of 38 and pO2 of 62. INR of 1.1. His sodium 134, creatinine of 1.9, BUN of 23. BNP was elevated. Urine drug screen is pending. IMPRESSION: 1. Acute hypoxic respiratory failure. 2. Congestive heart failure. 3. History of smoking, presumed COPD. 4. History suggestive of obstructive sleep apnea. The patient currently has acute renal failure on top of chronic. He is on diuretics, would continue to monitor his kidney function closely. His picture is consistent with congestive heart failure, but still we need to diurese him. Continue scheduled nebulization treatment, I am not seeing active wheezes at this point, we will hold off on steroids. We will do repeat chest x-ray in the morning. He is currently on antibiotics. Continue to monitor fluid status given the suspected obstructive sleep apnea, avoid sedatives and hypnotics as tolerated. Thank you for the consult. We will follow along with you. We will do a chest x-ray in the morning. <ELECTRONICALLY SIGNED> By: Sushma Correa MD 11/14/17 0838 0951 [id number] Juarez MD /rommel
[2017-11-14 09:00] VITALS: BP 137/103
--- NOTE | 2017-11-14 11:01 | NUR ---
SW provided mental health resources and specifically Cindy Williamson information in pt room to guide pt out of a dangerous situation. Pt was sleeping soundly. SW to continue to follow to assist with safe dc planning.
[2017-11-14] MEDS ORDERED: LEVAQUIN 500 M500 M2 PO (13:57)
[2017-11-14 14:32] VITALS: BP 137/103
[2017-11-14 14:39] VITALS: BP 137/103
--- NOTE | 2017-11-14 16:01 | NUR ---
PATIENT HAS BEEN ALERT AND ORIENTED TODAY. VITAL SIGNS STABLE ON 2 LITERS AND ALSO ON ROOM AIR. NO COMPLAINTS OF PAIN TODAY. APPETITE IS VERY GOOD. PATIENT IS BEING DISCHARGED TO HOME WITH HOME HEALTH. DISCHARGE INSTRUCTIONS AND PRESCRIPTIONS GIVEN, QUESTIONS ANSWERED FOR PATIENT. APPOINTMENT MADE FOR CARDIOOLOGY. PATIENT LEFT VIA WHEELCHAIR TO CAB TO GO HOME
[2017-11-14 16:04] VITALS: BP 137/103
== END 2017-11-14 16:06 | disposition home health service (06) | DRG 291 ==
LOC: M.ERS 10:04 → M.3W 11:00 → M.TBA-ER 11:00 → M.3W 11:28
PROVIDERS: Family Medicine; ADMIT Internal Medicine
DX: I50.41 Acute combined systolic (congestive) and diastolic (congestive) heart failure (principal); J18.9 Pneumonia, unspecified organism; J96.02 Acute respiratory failure with hypercapnia; J15.9 Unspecified bacterial pneumonia; I13.0 Hypertensive heart and chronic kidney disease with heart failure and stage 1 through stage 4 chronic kidney disease, or unspecified chronic kidney disease; J44.0 Chronic obstructive pulmonary disease with (acute) lower respiratory infection; N17.9 Acute kidney failure, unspecified; J44.1 Chronic obstructive pulmonary disease with (acute) exacerbation; N18.9 Chronic kidney disease, unspecified; F17.210 Nicotine dependence, cigarettes, uncomplicated; G47.33 Obstructive sleep apnea (adult) (pediatric); E78.5 Hyperlipidemia, unspecified; F41.0 Panic disorder [episodic paroxysmal anxiety]; M19.90 Unspecified osteoarthritis, unspecified site; Z86.73 Personal history of transient ischemic attack (TIA), and cerebral infarction without residual deficits; Z98.890 Other specified postprocedural states; Z79.2 Long term (current) use of antibiotics; Z79.82 Long term (current) use of aspirin; Z79.899 Other long term (current) drug therapy

== ENCOUNTER 2017-11-24 19:16 | Inpatient (IN) | payer OTHER ==
[~2017-11-24] VITALS: Ht 182.9 cm; Wt 136.1 kg
[~2017-11-24 19:16] MED LIST changes: +HYDROCHLOROTHIA25 M2 PO; +LEVAQUIN 500 M500 M2 PO; +METOPROLOL SUCC50 MG PO
[2017-11-24 19:17] VITALS: BP 168/126
[2017-11-24 20:09] LABS: ABSOLUTE BASOPHILS 0.1 thou/uL (0.0-0.2); ABSOLUTE EOSINOPHILS 0.1 thou/uL (0.0-0.7); ABSOLUTE LYMPHOCYTES 1.7 thou/uL (0.8-5.3); ABSOLUTE MONOCYTES 0.5 thou/uL (0.0-1.2); ABSOLUTE NEUTROPHILS 3.1 thou/uL (1.6-8.1); BASOPHILS 1.3 %; EOSINOPHILS 2.3 %; HEMATOCRIT 43.6 % (42.0-52.0); HEMOGLOBIN 14.6 gm/dL (14.0-18.0); MCH 30.3 pg (26.0-34.0); MCHC 33.5 g/dL (28.0-37.0); MCV 90.4 fL (80.0-100.0); MONOCYTES 8.5 %; NUCLEATED RBCS 0 /100WBC; PLATELET COUNT* 304 thou/uL (150-400); POLYS 56.9 %; RBC 4.82 mil/uL (4.50-6.00); RDW-CV 17.3 % (10.5-14.5); WBC 5.4 thou/uL (4.0-11.0)
[2017-11-24 20:21] LABS: INR 1.2; PROTIME 11.5 Seconds (9.20-11.50)
[2017-11-24 20:25] LABS: ANION GAP 13 mmol/L (7-16); BUN 20 mg/dL (7-18); CALCIUM 8.8 mg/dL (8.5-10.1); CHLORIDE 106 mmol/L (98-107); CO2 21 mmol/L (21-32); CREATININE 1.4 mg/dL (0.6-1.3); GLUCOSE 98 mg/dL (70-99); POTASSIUM 3.4 mmol/L (3.5-5.1); SODIUM 140 mmol/L (136-145)
[2017-11-24 20:37] LABS: ALBUMIN 3.3 g/dL (3.4-5.0); ALKALINE PHOSPHATASE 95 U/L (46-116); NT-PRO BRAIN NAT PEPTIDE 1953 pg/mL (<300); SGOT 11 U/L (15-37); SGPT 13 U/L (30-65); TOTAL BILIRUBIN 1.5 mg/dL (<0.1-1.0); TOTAL PROTEIN 7.3 g/dL (6.4-8.2); TROPONIN-I LEVEL <0.06 ng/mL (<0.06)
[2017-11-24 22:13] LABS: URINE BLOOD NEGATIVE (Negative); URINE CLARITY CLEAR; URINE COLOR YELLOW; URINE GLUCOSE-RANDOM NEGATIVE (Negative); URINE KETONES TRACE (Negative); URINE LEUKOCYTES-REFLEX NEGATIVE (Negative); URINE NITRITE-REFLEX NEGATIVE (Negative); URINE PROTEIN 2+ (Negative); URINE SPECIFIC GRAVITY >= 1.030 (1.005-1.030)
[2017-11-24 22:16] LABS: ICTOTEST (BILI CONFIRMATORY) Negative (Negative); URINE BILIRUBIN 2+ (Negative)
[2017-11-24 22:21] LABS: AMP/METHAMP POSITIVE (Negative); BARBITURATES Negative (Negative); BENZODIAZEPINES Negative (Negative); COCAINE Negative (Negative); METHADONE Negative (Negative); OPIATES Negative (Negative); PCP Negative (Negative); THC POSITIVE (Negative)
[2017-11-24 22:24] LABS: BACTERIA-REFLEX >30 Many /HPF (None Seen); FINE GRANULAR CASTS 0-3 Few /LPF (None Seen); HYALINE CASTS 0-3 Few /LPF (None Seen); MUCUS 4-6 Moderate strn/LPF (None Seen); SQUAMOUS 0-3 Few /LPF (0-3); TRANSITIONAL EPITHEL CELL 0-3 Few /LPF (None Seen); URINE RBC 3-10 Few /HPF (0-2); URINE WBC-REFLEX 6-15 Few /HPF (0-5); WBC CLUMPS Few (None Seen)
[2017-11-24 22:25] LABS: COARSE GRANULAR CASTS 0-3 Few /LPF (None Seen); CRYSTALS None Seen /LPF (None Seen)
--- NOTE | 2017-11-24 23:26 | NUR ---
MULTIPLE ATTEMPTS MADE AT IV ACCESS PER ASHIA GARCIA AND MARBELLARN TO OBTAIN ACCESS FOR PE STUDY. UNABLE TO OBTAIN ACCESS. LAB RN FAMILY PRACTICE AT BEDSIDE TO RE-DRAW TROPONIN. NOTIFIED OF INABILITY TO OBTAIN IV ACCESS AND VQ SCAN TO BE ORDERED.
--- NOTE | 2017-11-25 02:27 | NUR ---
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 Dr. Hart notified and to bedside, given sandwich and po fluids by Dr. Hart at this time. continue to wait for Cardiology to return phone call.
[2017-11-25 02:35] VITALS: BP 170/117
[2017-11-25 03:00] VITALS: BP 166/112
[2017-11-25 08:00] VITALS: BP 151/97
[2017-11-25 12:00] VITALS: BP 167/109
--- NOTE | 2017-11-25 14:47 | EKG ---
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: VEGA : 1965 Requested By: Meredith Hart Order Number: [id number] MD: Jorge Luis Valencia Measurements Intervals [place] Rate: 77 P: 31 WI: 179 QRS: -32 QRSD: 106 T: 104 QT: 443 QTc: 502 Interpretive Statements Sinus rhythm Left atrial enlargement LVH with secondary repolarization abnormality Prolonged QT interval Compared to ECG 11/12/2017 10:08:12 Early repolarization now present Prolonged QT interval now present Myocardial infarct finding no longer present Electronically Signed On 11-25-2017 14:46:58 CDT by Jorge Luis Valencia [email or web address] <ELECTRONICALLY SIGNED> By: Jorge Luis Valencia MD, FACC 11/25/17 1446 20 20 Jorge Luis Valencia MD, [facility] /EPI
--- NOTE | 2017-11-25 14:49 | EKG ---
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: : 1965 Requested By: Meredith Hart Order Number: [id number] MD: Jorge Luis Valencia Measurements Intervals [place] Rate: 62 P: 39 MA: 198 QRS: -32 QRSD: 102 T: 60 QT: 455 QTc: 462 Interpretive Statements Sinus rhythm Left atrial enlargement Abnormal R-wave progression, late transition LVH with secondary repolarization abnormality Compared to ECG 11/12/2017 10:08:12 Early repolarization now present Electronically Signed On 11-25-2017 14:48:58 CDT by Jorge Luis Valencia [email or web address] <ELECTRONICALLY SIGNED> By: Jorge Luis Valencia MD, [facility] 11/25/17 1448 0106 0106 Jorge Luis Valencia MD, [facility] /EPI
[2017-11-25 16:00] VITALS: BP 167/103
--- NOTE | 2017-11-25 18:09 | NUR ---
ASSUMED RESPONSIBILITY OF PT THIS AM PT IS ALERT AND ORIENTED X2-3 BUT CONFUSED AND FORGETFUL VERY AGITATED TRIED TO LEAVE AMA HAD TO TALK WITH CHARGE NURSE AND HOUSE SUP PT FINALLY AGREED TO STAY BECAUSE HE WAS ABLE TO EAT NO IV IN PT AT THIS TIME WILL NEED ONE BY TOMORROW FOR TESTING POSSIBLY WILL KEEP MONITORING
[2017-11-25 20:55] VITALS: BP 156/112
[2017-11-26] VITALS: BP 155/120
--- NOTE | 2017-11-26 01:01 | NUR ---
ASSUMED CARE OF PT AT 1900. PT IS ALERT AND ORIENTED. VSS. PERRRUDY. PT IS UP WITH A CANE AND STAND BY ASSIST. PT TOOK A SHOWER AT THE BEGINNING OF THE SHIFT. PT IS IN SINUS RYTHM ON THE TELEMETRY. PT IS RESTING COMFORTABLY IN BED. RESPIRATIONS ARE EVEN AND NONLABORED. WILL CONTINUE TO MONITOR PT.
[2017-11-26 04:00] VITALS: BP 133/91
[2017-11-26 08:00] VITALS: BP 160/96
--- NOTE | 2017-11-26 10:36 | NUR ---
ASSUMED RESPONSIBILITY OF PT THIS AM PT IS ALERT AND ORIENTED BUT FORGETFUL AND CONFUSED AT TIMES PT IS ANXIOUS AND FRUSTRATED AT TIMES UP SBA WITH CANE INCONTINENT AT TIMES BLOOD PRESSURE STILL ELEVATED CALL LIGHT IN REACH CONTINUE WITH MEDICATION AND POSSIBLE DC SOON
[2017-11-26 12:27] VITALS: BP 126/81
[2017-11-26 14:01] LABS: CALCIUM 8.3 mg/dL (8.5-10.1); CREATININE 1.5 mg/dL (0.6-1.3); POTASSIUM 3.7 mmol/L (3.5-5.1)
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
[2017-11-26 15:52] VITALS: BP 134/113
--- NOTE | 2017-11-26 18:57 | NUR ---
PT SLEPT THROUGHOUT DAY EXTRA LISINOPRIL GIVEN FOR BP ELEVATED PLAN TO DISCHARGE TOMORROW ONLY DOING MED CHANGES NO COMPLAINTS THROUGHOUT DAY CALL LIGHT IN REACH
[2017-11-26 20:59] VITALS: BP 122/74
[2017-11-27] VITALS: BP 130/97
[2017-11-27 04:00] VITALS: BP 123/60; BP 151/94
--- NOTE | 2017-11-27 05:52 | NUR ---
PT IS ABLE TO COMMUNICATE HIS NEEDS TO STAFF EFFECTIVELY. CURRENT PAIN MEDICATION REGIMEN HAS BEEN ADEQUATE FOR CONTROLLING HIS PAIN UP TO THIS TIME. PT HAS EATEN QUITE A BIT OF FOOD OVERNIGHT. POSSIBLE DISCHARGE TODAY.
[2017-11-27 08:00] VITALS: BP 119/88
--- NOTE | 2017-11-27 11:00 | NUR ---
MET WITH PT TO DISCUSS HOME SITUATION/DC PLANNING. PT STATES HE LIVES ALONE NOW, DENIES ANY DC NEEDS. PLANS TO RETURN THERE AT DC. PT NOT OFFERING ANY INFO WHEN ASKED QUESTIONS. ENCOURAGED TO ASK NURSE TO CONTACT CM IF ANY CONCERNS
[2017-11-27 12:37] VITALS: BP 129/87
[2017-11-27] MEDS ORDERED: AMLODIPINE BESYL5 M1 PO (12:41)
[2017-11-27] MEDS ORDERED: CIPRO250 M1 PO (12:51)
[2017-11-27 13:20] VITALS: BP 129/87
--- NOTE | 2017-11-27 15:23 | NUR ---
MADE AN APPOINTMENT FOR FOLLOW UP OF CHF ON November AT 1300 PT DOES NOT USUALLY COMPLY BUT NOTIFIED PT OF THIS APPOINTMENT AND WENT THROUGH DC PAPERWORK IV AND PEANUT SHELLER DISCONTINUED WILL GO VIA [facility]AXI AFTER DINNER
== END 2017-11-27 20:38 | disposition home or self-care (01) | DRG 689 ==
LOC: M.ERS 19:16 → M.TBA-ER 11-25 00:15 → M.2W 11-25 00:15
PROVIDERS: Emergency Medicine; Internal Medicine; ADMIT Family Medicine
DX: N39.0 Urinary tract infection, site not specified (principal); I50.43 Acute on chronic combined systolic (congestive) and diastolic (congestive) heart failure; J44.0 Chronic obstructive pulmonary disease with (acute) lower respiratory infection; Z68.41 Body mass index [BMI] 40.0-44.9, adult; I42.9 Cardiomyopathy, unspecified; I11.0 Hypertensive heart disease with heart failure; F19.10 Other psychoactive substance abuse, uncomplicated; E66.9 Obesity, unspecified; G47.33 Obstructive sleep apnea (adult) (pediatric); E78.5 Hyperlipidemia, unspecified; F17.210 Nicotine dependence, cigarettes, uncomplicated; M19.90 Unspecified osteoarthritis, unspecified site; Z86.73 Personal history of transient ischemic attack (TIA), and cerebral infarction without residual deficits; Z79.82 Long term (current) use of aspirin; Z79.899 Other long term (current) drug therapy; Z87.01 Personal history of pneumonia (recurrent); I25.2 Old myocardial infarction

== ENCOUNTER 2018-02-09 20:37 | Inpatient (IN) | payer OTHER ==
[~2018-02-09] VITALS: Ht 182.9 cm; Wt 141.1 kg
[~2018-02-09 20:37] MED LIST changes: +AMLODIPINE BESYL5 M1 PO; +CIPRO250 M1 PO
[2018-02-09 20:42] VITALS: BP 170/128
[2018-02-09 21:27] LABS: ABSOLUTE EOSINOPHILS 0.2 thou/uL (0.0-0.7); ABSOLUTE LYMPHOCYTES 2.4 thou/uL (0.8-5.3); ABSOLUTE MONOCYTES 0.4 thou/uL (0.0-1.2); ABSOLUTE NEUTROPHILS 2.8 thou/uL (1.6-8.1); BASOPHILS 0.5 %; EOSINOPHILS 3.1 %; HEMATOCRIT 38.7 % (42.0-52.0); HEMOGLOBIN 12.6 gm/dL (14.0-18.0); LYMPHOCYTES 40.9 %; MCHC 32.6 g/dL (28.0-37.0); MCV 95.1 fL (80.0-100.0); MONOCYTES 7.1 %; MPV 7.8 fl. (7.2-11.1); NUCLEATED RBCS 0 /100WBC; PLATELET COUNT* 277 thou/uL (150-400); POLYS 48.4 %; RBC 4.07 mil/uL (4.50-6.00); RDW-CV 16.1 % (10.5-14.5); WBC 5.8 thou/uL (4.0-11.0)
[2018-02-09 21:32] LABS: ANION GAP 9 mmol/L (7-16); BUN 28 mg/dL (7-18); CALCIUM 7.8 mg/dL (8.5-10.1); CHLORIDE 108 mmol/L (98-107); CO2 24 mmol/L (21-32); CREATININE 2.1 mg/dL (0.6-1.3); GLUCOSE 102 mg/dL (70-99); POTASSIUM 3.7 mmol/L (3.5-5.1); SODIUM 141 mmol/L (136-145)
[2018-02-09 21:43] LABS: ALBUMIN 2.9 g/dL (3.4-5.0); ALKALINE PHOSPHATASE 80 U/L (46-116); NT-PRO BRAIN NAT PEPTIDE 9130 pg/mL (<300); SGOT 15 U/L (15-37); SGPT 18 U/L (30-65); TOTAL BILIRUBIN 1.2 mg/dL (<0.1-1.0); TOTAL PROTEIN 6.5 g/dL (6.4-8.2); TROPONIN-I LEVEL <0.06 ng/mL (<0.06)
[2018-02-09 21:45] LABS: URINE BILIRUBIN NEGATIVE (Negative); URINE BLOOD TRACE (Negative); URINE CLARITY CLEAR; URINE COLOR YELLOW; URINE GLUCOSE-RANDOM NEGATIVE (Negative); URINE KETONES NEGATIVE (Negative); URINE LEUKOCYTES-REFLEX NEGATIVE (Negative); URINE NITRITE-REFLEX NEGATIVE (Negative); URINE PROTEIN 2+ (Negative); URINE SPECIFIC GRAVITY 1.025 (1.005-1.030)
[2018-02-09 21:51] LABS: AMP/METHAMP POSITIVE (Negative); BARBITURATES Negative (Negative); BENZODIAZEPINES POSITIVE (Negative); COCAINE Negative (Negative); METHADONE Negative (Negative); OPIATES Negative (Negative); PCP Negative (Negative); THC POSITIVE (Negative)
[2018-02-09 21:56] LABS: SQUAMOUS 4-10 Moderate /LPF (0-3); URINE RBC 3-10 Few /HPF (0-2); URINE WBC-REFLEX 0-5 Rare /HPF (0-5)
[2018-02-09 21:57] LABS: CASTS None Seen /LPF (None Seen); CRYSTALS None Seen /LPF (None Seen); MUCUS 4-6 Moderate strn/LPF (None Seen)
[2018-02-09 22:38] VITALS: BP 167/129
[2018-02-09 23:00] VITALS: BP 160/128
[2018-02-10] VITALS: BP 139/110
[2018-02-10 04:00] VITALS: BP 156/115
[2018-02-10 05:20] LABS: HEMATOCRIT 38.6 % (42.0-52.0); HEMOGLOBIN 12.6 gm/dL (14.0-18.0); MCHC 32.7 g/dL (28.0-37.0); MCV 94.8 fL (80.0-100.0); MPV 8.3 fl. (7.2-11.1); RBC 4.07 mil/uL (4.50-6.00); RDW-CV 16.1 % (10.5-14.5); WBC 6.2 thou/uL (4.0-11.0)
[2018-02-10 06:04] LABS: ALBUMIN 2.8 g/dL (3.4-5.0); ALKALINE PHOSPHATASE 76 U/L (46-116); ANION GAP 11 mmol/L (7-16); BUN 26 mg/dL (7-18); CALCIUM 7.6 mg/dL (8.5-10.1); CHLORIDE 107 mmol/L (98-107); CO2 25 mmol/L (21-32); CREATININE 1.7 mg/dL (0.6-1.3); GLUCOSE 108 mg/dL (70-99); MAGNESIUM 1.9 mg/dL (1.8-2.4); POTASSIUM 3.3 mmol/L (3.5-5.1); SGOT 15 U/L (15-37); SGPT 16 U/L (30-65); SODIUM 143 mmol/L (136-145); TOTAL BILIRUBIN 1.1 mg/dL (<0.1-1.0); TOTAL PROTEIN 6.3 g/dL (6.4-8.2); TROPONIN-I LEVEL <0.06 ng/mL (<0.06)
--- NOTE | 2018-02-10 07:02 | NUR ---
PT ADMITTED ON THE FLOOR AT AROUND MIDNIGHT. HE IS ACCOMPANIED BY THE ER NURSE ON A STRETCHER ON O2 2 LNC. HE DOES COMPLAIN OF PAIN TYLENOL GIVEN. HAS A BP OF 162/122. ORDER FOR HYDRALIZINE PLACED. IV ABX GIVEN AMLODIPINE PO GIVEN ORDERED. PT BP DROPPED TO TH W 150S BUT IN THE MORNING WENT BACK UP TO 160. HYDRALIZINE GIVEN. PT IS ASYMPTOMAIC. NPO AFTER MIDNIGHT FOR CARDIAC CONSULT. ICE CHIPS PROVIDED, SINUS RYTHM ON MONITOR. INSTRUCTION ON SMOKING CESSATION GIVEN. ADMISSION ASSESSMENT AND HX PERFOREMED. REFER TO CHARTING. FALL PRECAUTION IN PLACE. PT USES URINAL AND HE HAS A CANE IN THE ROOM ,
[2018-02-10 08:35] VITALS: BP 150/104
[2018-02-10 12:39] VITALS: BP 138/97
--- NOTE | 2018-02-10 17:04 | EKG ---
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: DENISE : 1965 Requested By: Nikkie Hyatt Order Number: [id number] Reading MD: Jorge Luis Valencia Measurements Intervals [place] Rate: 65 P: 16 FL: 210 QRS: -36 QRSD: 105 T: 128 QT: 449 QTc: 467 Interpretive Statements Sinus rhythm Prolonged FL interval Probable left atrial enlargement Abnormal R-wave progression, late transition LVH with secondary repolarization abnormality Compared to ECG 11/25/2017 01:06:49 First degree AV block now present Electronically Signed On 02-10-2018 17:04:41 CDT by Jorge Luis Valencia [email or web address] <ELECTRONICALLY SIGNED> By: Jorge Luis Valencia MD, FACC 02/10/18 1704 41 41 Jorge Luis Valencia MD, FAC /EPI
[2018-02-10 17:17] VITALS: BP 135/89
[2018-02-10 20:00] VITALS: BP 124/79
[2018-02-10 23:36] LABS: CALCIUM 7.7 mg/dL (8.5-10.1); CREATININE 1.8 mg/dL (0.6-1.3); MAGNESIUM 1.9 mg/dL (1.8-2.4); POTASSIUM 3.6 mmol/L (3.5-5.1)
[2018-02-11] VITALS: BP 113/72
--- NOTE | 2018-02-11 00:46 | NUR ---
ASSUMED PT CARE AT 1915 REPORT RECEIVED FROM NURSE. PT IS ALERT AWAKE ORIENTED X 4. SINUS RYTHM ON THE MICROBIOLOGY LABORATORY MANAGER. PT IS HOSTILE NONCOMPLIANT. VITALS ARE WITHIN NORMAL LIMIT, PT HAS O2 ON AT 2 L NC BUT IS NOT COMPLIANT. HE TAKES THE O2 OFF WHENEVER HE FALLS ASLEEP. EDUCATION PROVIDED REGARDING KEEPING O2 ON. PT SEEMS TO UNDERSTAND BUT DOES NOT STATES UNDERSTANDING. IV FLUID INFUSING AT 70CC PER HOUR . MADE COMFORTABLE. SNACKS AND BLANKET PROVIDED REQUESTED BY PT. WILL CONTINUE TO MONITOR.
[2018-02-11 04:00] VITALS: BP 107/76
[2018-02-11 04:58] LABS: HEMATOCRIT 37.1 % (42.0-52.0); HEMOGLOBIN 12.4 gm/dL (14.0-18.0); MCH 31.7 pg (26.0-34.0); MCHC 33.5 g/dL (28.0-37.0); MCV 94.7 fL (80.0-100.0); MPV 8.4 fl. (7.2-11.1); RBC 3.92 mil/uL (4.50-6.00); RDW-CV 15.8 % (10.5-14.5); WBC 5.2 thou/uL (4.0-11.0)
[2018-02-11 06:02] LABS: ALBUMIN 2.7 g/dL (3.4-5.0); ALKALINE PHOSPHATASE 75 U/L (46-116); ANION GAP 8 mmol/L (7-16); BUN 27 mg/dL (7-18); CALCIUM 7.5 mg/dL (8.5-10.1); CHLORIDE 105 mmol/L (98-107); CO2 28 mmol/L (21-32); CREATININE 1.7 mg/dL (0.6-1.3); GLUCOSE 127 mg/dL (70-99); POTASSIUM 3.3 mmol/L (3.5-5.1); SGOT 12 U/L (15-37); SGPT 14 U/L (30-65); SODIUM 141 mmol/L (136-145); TOTAL PROTEIN 5.9 g/dL (6.4-8.2); TROPONIN-I LEVEL <0.06 ng/mL (<0.06)
--- NOTE | 2018-02-11 06:16 | NUR ---
PT HASBEEN NON COMPLIANT DURING THE NIGHT. DOES NOT KEEP HIS NASAL CANULA ON. HAD TO REINFORCE EVERYT TIME i STEP IN THE ROOM. PT STIL LNOT COMPLIANT. IV BLEW OUT HIS VEIN THIS MORNING. PT SAYS :" I DON;T WANT A NEW IV NOW. i WANT TO WAIT LATER UNTIL THEY PUT A NEW ONE ON".i EDUCATED PT ABOUT THE USE AND IMPORTANCE OF AN IV LINE. DOESNOT SHOW AND STATE UNDERSTANDING. WILL LET THE DAY SHIFT NURSE ABOUT THE NEED OF AN IV LINE TODAY. IBV FLUID NS ON STAND BY FOR NOW.
--- NOTE | 2018-02-11 07:31 | NUR ---
RECIEVE REPORT FROM NIGHT RN THAT PT REFUSES IV ACCESS. ASSESS PT AT BEDSIDE AND GOUND 20G IV LAYING ON BED. ASKED PT IF HE WANTED ANOTHER IV AND HE REFUSES.
[2018-02-11 08:21] VITALS: BP 126/96
--- NOTE | 2018-02-11 09:46 | NUR ---
Pt is A&O. Resides at home alone. Independent with ADLs. Pt has a cane that he can use for mobility. No hx of HH or SNF. Positive drug screen for THC, Meth and Benzos, Pt declined community resources. CM following for disposition.
--- NOTE | 2018-02-11 10:40 | NUR ---
DIVISION MERCHANDISE MANAGER MADE AWARE THAT PT IS REFUSING IV AND NONCOMPLIANT.
[2018-02-11 14:09] VITALS: BP 140/88
[2018-02-11 17:30] VITALS: BP 127/89
--- NOTE | 2018-02-11 17:47 | NUR ---
PT STATES THAT HE HASA HAD A LAPBAND AND WHEN HE EATS TO MUCH HE THROW UP.
[2018-02-11 20:00] VITALS: BP 116/53
[2018-02-12] VITALS: BP 128/78
[2018-02-12 04:00] VITALS: BP 131/89
--- NOTE | 2018-02-12 04:19 | NUR ---
PT REFUSES IV PLACEMENT. CALLING OUT FOR FOOD AND DRINKS APPRX Q 2 HRS. ALERT ORIENTED. VOIDS PER URINAL. O2 AT 2 LITERS NC. TELEMETRY SHOWS SR.
[2018-02-12 08:05] VITALS: BP 129/96
--- NOTE | 2018-02-12 11:00 | NUR ---
ASSUMED CARE OF PATIENT AFTER RECEIVING REPORT FROM NOC RN. PT IS A & O X4. RECONCILIATION MANAGER IN PLACE, SR WITH 1ST DEGREE BLOCK. O2 SAT 100% RA. PT HAS NO IV AT PRESENT TIME. PT HAS NO C/O PAIN OR DISTRESS AT THIS TIME. ASSESSMENT COMPLETE AND DOCUMENTED. MEDS PER JUL. CALL LIGHT IN REACH.
[2018-02-12 12:06] VITALS: BP 140/101
--- NOTE | 2018-02-12 13:16 | 2DMMODE ---
[place] [address] 2 D/M-MODE ECHOCARDIOGRAM Name: JEFF GUZMAN Room: [address] IN [facility]#: [id number] Admission: 02/09/18 Attend Phys: Harish Jewell Discharge: Date of : 61 Date of Service: 02/12/18 1316 Report #: [id number] THIS REPORT FOR: //name// APPROVED REPORT Study performed: 02/12/2018 09:28:37 EXAM: Limited 2D Echocardiogram Patient Location: In-Patient Room #: [facility] Status: routine BSA: 2.59 HR: 63 bpm BP: 129/96 mmHg Rhythm: NSR Other Information Study Quality: Good Indications Congestive Heart Failure Dyspnea 2D Dimensions IVSd: 14.83 (7-11mm) LVDd: 66.41 mm PWd: 14.43 (7-11mm) LVDs: 47.92 (25-40mm) Volumes Left Atrial Volume (Systole) LA ESV Index: 61.50 mL/m2 Left Ventricle Left ventricle is borderline dilated. There is global hypokinesis of the left ventricle. moderate concentric left ventricular hypertrophy. Left ventricular systolic function is moderately decreased. LVEF is 35-40%. Right Ventricle The right ventricle is normal size. The right ventricular systolic function is normal. Atria Left atrium is severely dilated. The right at[place] [address] 2 D/M-MODE ECHOCARDIOGRAM Name: JEFF GUZMAN Room: [address] IN M.R.#: [id number] Admission: 02/09/18 Attend Phys: Harish Jewell Discharge: Date of : 61 Date of Service: 02/12/18 1316 Report #: [id number] Aortic Valve The aortic valve is normal in structure. No aortic regurgitation is present. There is no aortic valvular stenosis. Mitral Valve The mitral valve is normal in structure. Mild mitral regurgitation. No evidence of mitral valve stenosis. Tricuspid Valve The tricuspid valve is normal in structure. Trace tricuspid regurgitation. Pulmonic Valve The pulmonary valve is normal in structure. Great Vessels The aortic root is normal in size. IVC is normal in size and collapses >50% with inspiration. Pericardium There is no pericardial effusion. <Conclusion> Left ventricle is borderline dilated. LVEF is 35-40%. There is global hypokinesis of the left ventricle. moderate concentric left ventricular hypertrophy. There is no aortic valvular stenosis. No aortic regurgitation is present. Mild mitral regurgitation. <ELECTRONICALLY SIGNED> By: Timmy Odell MD, FACC 02/12/18 1316 15 15 Timmy Odell MD, FACC /INF
[2018-02-12 15:49] VITALS: BP 142/100
--- NOTE | 2018-02-12 18:30 | NUR ---
PT RESTING IN BED. LAPPING MACHINE SET UP OPERATOR IN PLACE, SR WITH 1ST DEGREE BLOCK. PT HAD 250 ML LIGHT COLORED EMESIS WHILE EATING LUNCH. DR. WEISS CONTACTED FOR ZOFRAN ORDER PRN N/V. PT DID NOT REQUIRE PRN MED AND WAS WITHOUT C/O N/V FOR REST OF THIS SHIFT. PT C/O PAIN 8/10 IN BACK/LEGS, PRN OXYCODONE IR GIVEN ORDERED, MED WAS EFFECTIVE ON REASSESSMENT.
[2018-02-12 20:00] VITALS: BP 136/90
[2018-02-13] VITALS: BP 108/64
[2018-02-13 04:00] VITALS: BP 106/52
[2018-02-13 07:10] VITALS: BP 137/96
--- NOTE | 2018-02-13 10:30 | NUR ---
ASSUMED CARE OF PATIENT AFTER REC'G REPORT FROM NOC RN. PT IS A & O X4, FLAT AFFECT TODAY. SHOPPING INVESTIGATOR IN PLACE, SR WITH 1ST DEGREE BLOCK. 02 SATS: 90% RA, ENCOURAGED PT TO USE 2L NC, THEN O2 SATS: 93%. IV FLUIDS INFUSING ORDERED. ASSESSMENT COMPLETE, DOCUMENTED. MEDS PER JUL. CALL LIGHT IN REACH.
[2018-02-13 11:14] VITALS: BP 127/81
--- NOTE | 2018-02-13 14:00 | NUR ---
PT HAS COMPLETE DC ORDER. REVIEWED DISCHARGE INSTRUCTIONS AND MED LIST WITH PT. ANSWERED QUESTIONS TO PATIENT'S SATISFACTION. IV AND SURGERY TECH REMOVED. PT IN POSSESSION OF ALL BELONGINGS. PT REQUESTED A CAB VOUCHER AND REC'D CAB VOUCHER.
--- NOTE | 2018-02-18 12:28 | CON ---
[address] [address] CONSULTATION Name: JEFF GUZMAN Room: [address] IN M.R.#: [id number] Admission: 02/09/18 Attend Phys: Harish Traylor, Discharge: 02/13/18 Date of : 61 Report #: [id number] THIS REPORT FOR: //name// CC: Ranjit Traylor INDICATION: Acute heart failure. HISTORY OF PRESENT ILLNESS: The patient is a very pleasant 52-year-old -[place]ene[place] gentleman with history of nonischemic cardiomyopathy. EF was felt to be in the neighborhood of 40-45% on his last echocardiogram. He does have also significant diastolic dysfunction. Wall motion showed global hypokinesis consistent with a nonischemic cardiomyopathy. He has been having progressive dyspnea and orthopnea. He has had shortness of breath with minimal activity. He is not having chest pain. He reports PND. He was given IV Lasix in the Emergency Room yesterday with significant diuresis. With this, he has had improvement in his shortness of breath. He is without other cardiac complaint at this time. PAST MEDICAL HISTORY: 1. Nonischemic cardiomyopathy. 2. Psvlg-zc-aeabjao combined heart failure. 3. Hypertension. 4. History of cerebrovascular accident. 5. Back surgery in 2011. 6. Left knee surgery remotely. 7. Left hand surgery in 2007. FAMILY HISTORY: Noncontributory. SOCIAL HISTORY: The patient does not smoke. There is history of polysubstance use. REVIEW OF SYSTEMS: CONSTITUTIONAL: He denies convulsions, seizures, or fever. GENERAL: There is no unexplained weight loss. RESPIRATORY: He has a cough that is nonproductive. He denies underlying lung disease. CARDIAC: As outlined above. In addition, he denies murmur. He does have some edema. ENDOCRINE: No history of diabetes or thyroid disease. GASTROINTESTINAL: He is not having any vomiting, melena or hematochezia. GENITOURINARY: No dysuria or hematuria. HEMATOLOGIC AND LYMPHATIC: No history of anemia, bleeding disorder, blood clots or cancer. ALLERGY AND IMMUNOLOGIC: No significant [place] [address] CONSULTATION Name: JEFF GUZMAN Room: [address]#: [id number] Admission: 02/09/18 Attend Phys: Harish Traylor, Discharge: 02/13/18 Date of : 61 Report #: [id number] PSYCHIATRIC: He denies depression or anxiety. MUSCULOSKELETAL: He has arthritis and DJD, but no connective tissue diseases. SKIN: No recent rashes, hives or chronic skin conditions. EYES: He denies any acute loss in vision. EARS, NOSE, MOUTH, AND THROAT: He denies decreased hearing or epistaxis. PHYSICAL EXAMINATION: VITAL SIGNS: Stable. Blood pressure of 150/104, pulse 65 and regular. GENERAL: This moderately obese, pleasant gentleman, in no distress. Mood and affect appropriate. HEENT: Extraocular muscles intact. Mucous membranes are moist. NECK: Shows jugular venous distention. I do not appreciate carotid bruit. CHEST: Reveals diminished breath sounds in the bases. I do not appreciate wheezes or rales. CARDIAC: Reveals a regular rhythm with S4. I do not appreciate a murmur. ABDOMEN: Reveals a protuberant abdomen, soft and nontender. EXTREMITIES: Trace lower extremity edema. Peripheral pulses are 2+ and palpable. SKIN: Warm and dry. LABORATORY DATA: A 12-lead EKG shows sinus rhythm with left ventricular hypertrophy with repolarization abnormalities. Labs are reviewed. NT-proBNP is elevated. Troponins are less than 0.06. Chest x-ray shows pulmonary vascular congestion consistent with acute heart failure. IMPRESSION AND RECOMMENDATIONS: 1. Bnkly-lj-apnuwfr combined systolic and diastolic heart failure. Continue diuresis with IV furosemide. We will adjust antihypertensives to include carvedilol and lisinopril. 2. Hypertension. Blood pressure is moderately elevated and contributing to heart failure at this time. Adjusting heart failure/antihypertensive regimen. 3. Nonischemic cardiomyopathy, presently decompensated as outlined above. <ELECTRONICALLY SIGNED> By: Jorge Luis Valencia MD, FACC 02/18/18 1228 1210 1903Jorge Luis Valencia MD, FACC /nt
== END 2018-02-13 15:15 | disposition home or self-care (01) | DRG 291 ==
LOC: M.ERS 20:37 → M.2W 22:09 → M.TBA-ER 22:09 → M.2W 22:51
PROVIDERS: Nurse Practitioner Family; ADMIT Family Medicine
DX: I13.0 Hypertensive heart and chronic kidney disease with heart failure and stage 1 through stage 4 chronic kidney disease, or unspecified chronic kidney disease (principal); I50.43 Acute on chronic combined systolic (congestive) and diastolic (congestive) heart failure; N17.0 Acute kidney failure with tubular necrosis; E44.0 Moderate protein-calorie malnutrition; N39.0 Urinary tract infection, site not specified; Z68.41 Body mass index [BMI] 40.0-44.9, adult; I16.0 Hypertensive urgency; I42.9 Cardiomyopathy, unspecified; M19.90 Unspecified osteoarthritis, unspecified site; N18.9 Chronic kidney disease, unspecified; J44.9 Chronic obstructive pulmonary disease, unspecified; F12.90 Cannabis use, unspecified, uncomplicated; F15.10 Other stimulant abuse, uncomplicated; E66.01 Morbid (severe) obesity due to excess calories; Z86.73 Personal history of transient ischemic attack (TIA), and cerebral infarction without residual deficits; Z79.899 Other long term (current) drug therapy

== ENCOUNTER 2018-03-19 15:58 | Inpatient (IN) | payer OTHER ==
[~2018-03-19] VITALS: Ht 182.9 cm; Wt 132.9 kg
[2018-03-19 16:05] VITALS: BP 190/140
[2018-03-19 16:32] LABS: ABSOLUTE EOSINOPHILS 0.1 thou/uL (0.0-0.7); ABSOLUTE LYMPHOCYTES 1.7 thou/uL (0.8-5.3); ABSOLUTE MONOCYTES 0.3 thou/uL (0.0-1.2); ABSOLUTE NEUTROPHILS 3.7 thou/uL (1.6-8.1); BASOPHILS 0.6 %; EOSINOPHILS 2.5 %; HEMATOCRIT 38.7 % (42.0-52.0); HEMOGLOBIN 12.6 gm/dL (14.0-18.0); LYMPHOCYTES 28.1 %; MCH 29.7 pg (26.0-34.0); MCHC 32.6 g/dL (28.0-37.0); MCV 91.1 fL (80.0-100.0); MONOCYTES 5.3 %; MPV 8.5 fl. (7.2-11.1); NUCLEATED RBCS 0 /100WBC; PLATELET COUNT* 272 thou/uL (150-400); POLYS 63.5 %; RBC 4.25 mil/uL (4.50-6.00); RDW-CV 15.4 % (10.5-14.5); WBC 5.9 thou/uL (4.0-11.0)
[2018-03-19 16:40] LABS: CALCIUM 8.5 mg/dL (8.5-10.1); CREATININE 1.6 mg/dL (0.6-1.3); POTASSIUM 3.3 mmol/L (3.5-5.1)
[2018-03-19 16:42] LABS: APTT 31.9 Seconds (25.0-31.3); INR 1.1; PROTIME 11.6 Seconds (9.20-11.50)
[2018-03-19 17:02] LABS: ALBUMIN 3.2 g/dL (3.4-5.0); CK-MB MASS 1.1 ng/mL (<0.5-3.6); MAGNESIUM 1.7 mg/dL (1.8-2.4); TOTAL BILIRUBIN 1.8 mg/dL (<0.1-1.0); TOTAL PROTEIN 7.2 g/dL (6.4-8.2); TROPONIN-I LEVEL 0.08 ng/mL (<0.06)
[2018-03-19 18:10] VITALS: BP 210/168
[2018-03-19 18:30] VITALS: BP 193/148
[2018-03-19 20:00] VITALS: BP 189/146
[2018-03-19 21:30] LABS: CALCIUM 8.9 mg/dL (8.5-10.1); CREATININE 1.5 mg/dL (0.6-1.3); MAGNESIUM 1.7 mg/dL (1.8-2.4); POTASSIUM 3.5 mmol/L (3.5-5.1)
[2018-03-20] VITALS: BP 163/121
[2018-03-20 04:00] VITALS: BP 158/114
[2018-03-20 07:33] VITALS: BP 151/115
--- NOTE | 2018-03-20 10:54 | EKG ---
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 : 1965 Requested By: Aldo Bliss Order Number: [id number] MD: Meliton Juarez Measurements Intervals [place] Rate: 85 P: 23 KS: 192 QRS: -31 QRSD: 104 T: 115 QT: 398 QTc: 474 Interpretive Statements Sinus rhythm Atrial premature complex Probable left atrial enlargement Abnormal R-wave progression, late transition LVH with secondary repolarization abnormality Baseline wander in lead(s) V1,V2 Compared to ECG 02/09/2018 20:42:50 Atrial premature complex(es) now present Electronically Signed On 03-20-2018 10:54:07 CDT by Meliton Juarez [email or web address] <ELECTRONICALLY SIGNED> By: Meliton Juarez MD, FACC 03/20/18 1054 1619 1619 Meliton Juarez MD, FACC /EPI
[2018-03-20 11:14] VITALS: BP 144/109
--- NOTE | 2018-03-20 13:22 | 2DMMODE ---
[place] [address] 2 D/M-MODE ECHOCARDIOGRAM Name: JEFF GUZMAN Room: [address] IN [facility]#: [id number] Admission: 03/19/18 Attend Phys: Ranjan Fuentes Discharge: Date of : 61 Date of Service: 03/20/18 1321 Report #: [id number] THIS REPORT FOR: //name// APPROVED REPORT Study performed: 03/20/2018 10:17:26 EXAM: Comprehensive 2D, Doppler, and color-flow Echocardiogram Patient Location: In-Patient Room #: 200 Status: routine BSA: 2.49 HR: 75 bpm BP: 151/115 mmHg Rhythm: NSR Other Information Study Quality: Excellent Indications Congestive Heart Failure 2D Dimensions IVSd: 14.28 (7-11mm) LVOT Diam: 21.68 (18-24mm) LVDd: 64.52 mm PWd: 14.60 (7-11mm) Ascending Ao: 43.77 (22-36mm) LVDs: 53.01 (25-40mm) Aortic Root: 40.13 mm Volumes Left Atrial Volume (Systole) LA ESV Index: 79.10 mL/m2 Aortic Valve AoV Peak Aleksey.: 1.27 m/s AO Peak Gr.: 6.46 mmHg LVOT Max P.89 mmHg AO Mean Gr.: 3.71 mmHg LVOT Mean P.51 mmHg LVOT Max V: 0.85 m/s AO V2 VTI: 20.69 cm LVOT Mean V: 0.57 m/s VINCE (VTI): 2.34 cm2 LVOT V1 VTI: 13.10 cm Mitral Valve E/A Ratio: 2.72 MV Decel. Time: 132.60 ms MV E Max Aleksey.: 1.02 m/[place] [address] 2 D/M-MODE ECHOCARDIOGRAM Name: JEFF GUZMAN Room: [address] IN [facility].#: [id number] Admission: 03/19/18 Attend Phys: Ranjan Fuentes Discharge: Date of : 61 Date of Service: 03/20/18 1321 Report #: [id number] PHT: 38.46 ms MVA (PHT): 5.72 cm2 TDI E/Lateral E': 10.20 E/Medial E': 17.00 Medial E' Aleksey.: 0.06 m/s Lateral E' Aleksey.: 0.10 m/s Pulmonary Valve PV Peak Aleksey.: 0.96 m/s PV Peak Gr.: 3.66 mmHg Tricuspid Valve RAP Estimate: 15.00 mmHg TR Peak Gr.: 33.28 mmHg RVSP: 48.00 mmHg PA Pressure: 48.00 mmHg Left Ventricle Left ventricle is moderately dilated. There is moderate global hypokinesis of the left ventricle. Moderate concentric left ventricular hypertrophy. Left ventricular systolic function is decreased. LVEF is 25-30%. Grade IV - fixed restrictive diastolic dysfunction. Right Ventricle The right ventricle is normal size. Right ventricle is mildly hypokinetic. Atria Left atrium is severely dilated. The right atrium size is normal. Aortic Valve The aortic valve is normal in structure. Trace aortic regurgitation. There is no aortic valvular stenosis. Mitral Valve The mitral valve is normal in structure. Mild mitral regurgitation. No evidence of mitral valve stenosis. Tricuspid Valve The tricuspid valve is normal in structure. Mild tricuspid regurgitation. estimated pa pressure 45 mm Hg Pulmonic Valve The pulmonary valve is normal in structure. [place] [address] 2 D/M-MODE ECHOCARDIOGRAM Name: JEFF GUZMAN Room: [address] IN [facility]#: [id number] Admission: 03/19/18 Attend Phys: Ranjan Fuentes Discharge: Date of : 61 Date of Service: 03/20/18 1321 Report #: [id number] Great Vessels The aortic root is normal in size. IVC is dilated and collapses <50% with inspiration. Pericardium There is no pericardial effusion. <Conclusion> LVEF is 25-30%. Left atrium is severely dilated. Mild mitral regurgitation. Mild tricuspid regurgitation. estimated pa pressure 45 mm Hg <ELECTRONICALLY SIGNED> By: Meliton Juarez MD, FACC 03/20/181320 20 20 Meliton Juarez MD, FACC /INF
[2018-03-20 19:30] VITALS: BP 137/99
[2018-03-21] VITALS: BP 122/84
[2018-03-21 04:00] VITALS: BP 119/76
[2018-03-21 06:53] LABS: CALCIUM 8.2 mg/dL (8.5-10.1); CREATININE 1.9 mg/dL (0.6-1.3); POTASSIUM 3.2 mmol/L (3.5-5.1)
[2018-03-21 08:02] VITALS: BP 150/107
[2018-03-21 12:14] VITALS: BP 145/105
[2018-03-21 16:00] VITALS: BP 124/91
[2018-03-21 20:18] VITALS: BP 147/115
[2018-03-22] VITALS: BP 120/92
[2018-03-22 04:00] VITALS: BP 142/100
[2018-03-22 08:04] VITALS: BP 149/106
--- NOTE | 2018-03-22 13:12 | CON ---
[address] [address] CONSULTATION Name: JEFF GUZMAN Room: [address] IN .R.#: [id number] Admission: 03/19/18 Attend Phys: Ghulam Jean-Baptiste Discharge: Date of : 61 Report #: [id number] THIS REPORT FOR: //name// CC: Wayne Fuentes DATE OF SERVICE: 03/20/2018 HISTORY OF PRESENT ILLNESS: The patient is a 52-year-old single black male who I was asked to see in the hospital today after he complained of being short of breath. The patient has had multiple hospitalizations here at [facility]. He was here in 2012 with nausea and vomiting. He has a history of morbid obesity. He previously was 6 feet tall, weighed over 400 pounds. He had Lap-Band surgery in [place]. He now weighs 300 pounds. I actually saw him in consultation back in 2015 when he complained of being short of breath. Echocardiogram at that time showed ejection fraction of 60%. He was here a year ago with diarrhea. Echocardiogram at that time showed an ejection fraction of 50%. He was here in July of this year complaining of shortness of breath. He had an echocardiogram at that time that showed an ejection fraction of 45%. He was just here last month. Echocardiogram at that time showed an estimated ejection fraction of 40%. The patient was seen by my nurse practitioner, Allyson Case at that time. The patient was brought to the Emergency Room yesterday complaining of being short of breath. He has had a cough. Denied any increase in edema or chest pain. He does feel occasional palpitations. He was admitted for further evaluation and treatment. PAST MEDICAL HISTORY: Significant for 2 back surgeries, had knee surgery, has a history of hypertension. He actually has been given return appointments to come back to the [facility]iology Clinic in the past, but he usually does not show up. CURRENT MEDICATIONS: Include Lipitor, Lasix, hydrochlorothiazide, carvedilol, lisinopril. He has been on amlodipine in the past. ALLERGIES: He has no known drug allergies. FAMILY HISTORY: Negative for heart disease. SOCIAL HISTORY: He apparently went to [employer] 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 He is currently , has 4 children. Lives here in [place] with 3 roommates. 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 He smokes rarely. No alcohol abuse. He has a history of drug abuse in the past including methamphetamines, cocaine and speed. He notes he actually played football for [employer]. REVIEW OF SYSTEMS: There is no history of stroke, asthma, peptic ulcer disease, liver disease, kidney disease, [place] [address] CONSULTATION Name: JEFF GUZMAN KATHY Room: [address] IN [facility]#: [id number] Admission: 03/19/18 Attend Phys: Ghulam Jean-Baptiste Discharge: Date of : 61 Report #: [id number] PHYSICAL EXAMINATION: GENERAL: Revealed obese, middle-aged black male, lying in bed. He appeared in no distress. VITAL SIGNS: He had a blood pressure of 190/90, pulse 90, he is afebrile. HEENT: He was anicteric. Mucous membranes moist. NECK: Neck veins difficult to assess due to obesity. CHEST: Clear to auscultation. No carotid bruits. CARDIOVASCULAR: Regular rate and rhythm, grade 2 systolic ejection murmur. ABDOMEN: Obese. EXTREMITIES: Had trace edema. Dorsalis pedis pulse cannot be palpated. SKIN: Cool and dry. NEUROLOGIC: Nonfocal. His ECG showed a sinus rhythm, left ventricular hypertrophy, repolarization changes. His workup in the Emergency Room: He had portable chest x-ray that showed cardiomegaly, clear lung reid. He actually had carotid Doppler study in July of this year that showed a mild plaque formation. No high grade stenosis. CT scan of the head in July showed atrophy, small lacunar infarction. LABORATORY DATA: Sodium 139, BUN 24, creatinine 1.5. It has been as high as 2.1 in the past. Glucose 199. Liver function studies were normal. Troponin 0.06. BNP 13,898. TSH 1.0. His white blood cell count 5.9, hemoglobin 12.6. IMPRESSION AND RECOMMENDATIONS: 1. Diastolic heart failure. Recommend Lasix. 2. Hypertension. The patient has been noncompliant. 3. Mild cardiomyopathy, suspect secondary to substance abuse. 4. Chronic back pain. 5. Morbid obesity. 6. Tobacco abuse. <ELECTRONICALLY SIGNED> By: Meliton Juarez MD, FACC 03/22/18 1312 1015 0429Meliton Juarez MD, FACC /nt
[2018-03-23] VITALS (7 sets, daily range): BP systolic 105–134; BP diastolic 65–107
[2018-03-23 05:10] LABS: HEMATOCRIT 42.6 % (42.0-52.0); HEMOGLOBIN 14.1 gm/dL (14.0-18.0); MCH 30.4 pg (26.0-34.0); MCHC 33.2 g/dL (28.0-37.0); MCV 91.6 fL (80.0-100.0); MPV 8.6 fl. (7.2-11.1); RBC 4.65 mil/uL (4.50-6.00); RDW-CV 15.7 % (10.5-14.5); WBC 6.2 thou/uL (4.0-11.0)
[2018-03-23 05:30] LABS: CALCIUM 8.5 mg/dL (8.5-10.1); MAGNESIUM 1.8 mg/dL (1.8-2.4); POTASSIUM 3.7 mmol/L (3.5-5.1); TOTAL BILIRUBIN 0.6 mg/dL (<0.1-1.0); TOTAL PROTEIN 6.5 g/dL (6.4-8.2)
[2018-03-24 00:20] VITALS: BP 128/85
[2018-03-24 03:59] VITALS: BP 132/78
[2018-03-24 04:38] LABS: HEMATOCRIT 43.8 % (42.0-52.0); HEMOGLOBIN 14.3 gm/dL (14.0-18.0); MCH 30.1 pg (26.0-34.0); MCHC 32.6 g/dL (28.0-37.0); MCV 92.3 fL (80.0-100.0); MPV 8.5 fl. (7.2-11.1); RBC 4.74 mil/uL (4.50-6.00)
[2018-03-24 05:46] LABS: MAGNESIUM 2.2 mg/dL (1.8-2.4); POTASSIUM 3.2 mmol/L (3.5-5.1)
[2018-03-24 08:00] VITALS: BP 117/82
[2018-03-24 11:45] VITALS: BP 94/63
[2018-03-24 15:36] VITALS: BP 107/74
[2018-03-24 19:30] VITALS: BP 100/58
[2018-03-25 00:30] VITALS: BP 107/71
[2018-03-25 04:29] VITALS: BP 111/73
[2018-03-25 08:34] VITALS: BP 119/86
[2018-03-25] MEDS ORDERED: ALBUTEROL2.5 MG/31 INH (11:22)
[2018-03-25] MEDS ORDERED: LIPITOR10 MG PO (11:22)
[2018-03-25] MEDS ORDERED: COREG25 MG PO (11:22)
[2018-03-25] MEDS ORDERED: ADULT LOW DOSE81 MG PO (11:22)
[2018-03-25] MEDS ORDERED: FLOMAX0.4 MG PO (11:22)
[2018-03-25] MEDS ORDERED: HYDROCHLOROTHIA25 M2 PO (11:22)
[2018-03-25] MEDS ORDERED: LASIX 80 MG TAB80 MG PO (11:22)
[2018-03-25] MEDS ORDERED: XANAX 0.5 MG0.5 MG PO (11:22)
[2018-03-25] MEDS ORDERED: LISINOPRIL20 MG PO (11:22)
[2018-03-25] MEDS ORDERED: VIAGRA100 MG PO (11:22)
[2018-03-25] MEDS ORDERED: POTASSIUM20 PO (13:28)
[2018-03-25 16:00] VITALS: BP 130/98
== END 2018-03-25 17:15 | disposition home or self-care (01) | DRG 291 ==
LOC: M.ERS 15:58 → M.TBA-ER 17:11 → M.2W 17:11
PROVIDERS: Family Medicine; Internal Medicine Cardiovascular Disease; ADMIT Internal Medicine
DX: I11.0 Hypertensive heart disease with heart failure (principal); J96.20 Acute and chronic respiratory failure, unspecified whether with hypoxia or hypercapnia; N17.8 Other acute kidney failure; N28.0 Ischemia and infarction of kidney; I50.43 Acute on chronic combined systolic (congestive) and diastolic (congestive) heart failure; I42.8 Other cardiomyopathies; M19.90 Unspecified osteoarthritis, unspecified site; J44.9 Chronic obstructive pulmonary disease, unspecified; F17.210 Nicotine dependence, cigarettes, uncomplicated; F12.90 Cannabis use, unspecified, uncomplicated; G89.29 Other chronic pain; M54.9 Dorsalgia, unspecified; E66.01 Morbid (severe) obesity due to excess calories; F19.90 Other psychoactive substance use, unspecified, uncomplicated; I16.0 Hypertensive urgency; E87.6 Hypokalemia; F32.9 Major depressive disorder, single episode, unspecified; I25.9 Chronic ischemic heart disease, unspecified; Z86.73 Personal history of transient ischemic attack (TIA), and cerebral infarction without residual deficits; Z68.39 Body mass index [BMI] 39.0-39.9, adult; Z79.82 Long term (current) use of aspirin; Z79.899 Other long term (current) drug therapy; Z91.14 Patient's other noncompliance with medication regimen; Z28.21 Immunization not carried out because of patient refusal

== ENCOUNTER 2018-07-10 11:39 | Inpatient (IN) | payer OTHER ==
[~2018-07-10] VITALS: Ht 180.3 cm; Wt 138.8 kg
[~2018-07-10 11:39] MED LIST changes: +ALBUTEROL2.5 MG/31 INH
[2018-07-10 11:47] VITALS: BP 118/82
[2018-07-10] MEDS ORDERED: ALBUTEROL2.5 MG/31 INH (11:55)
[2018-07-10 12:19] LABS: HEMATOCRIT 39.8 % (42.0-52.0); HEMOGLOBIN 13.1 gm/dL (14.0-18.0); MCH 30.3 pg (26.0-34.0); MCHC 32.8 g/dL (28.0-37.0); MCV 92.4 fL (80.0-100.0); MPV 8.2 fl. (7.2-11.1); NUCLEATED RBCS 0 /100WBC; PLATELET COUNT* 250 thou/uL (150-400); RBC 4.31 mil/uL (4.50-6.00); RDW-CV 17.3 % (10.5-14.5); WBC 9.3 thou/uL (4.0-11.0)
[2018-07-10 12:36] LABS: APTT 31.5 Seconds (25.0-31.3); CALCIUM 7.9 mg/dL (8.5-10.1); CREATININE 1.4 mg/dL (0.6-1.3); POTASSIUM 3.7 mmol/L (3.5-5.1); PROTIME 10.7 Seconds (9.20-11.50)
[2018-07-10 12:46] LABS: ALBUMIN 2.8 g/dL (3.4-5.0); TOTAL PROTEIN 6.5 g/dL (6.4-8.2); TROPONIN-I LEVEL 0.11 ng/mL (<0.06)
[2018-07-10 12:51] LABS: ABSOLUTE EOSINOPHILS 0.1 thou/uL (0.0-0.7); ABSOLUTE LYMPHOCYTES 1.3 thou/uL (0.8-5.3); ABSOLUTE MONOCYTES 0.6 thou/uL (0.0-1.2); ABSOLUTE NEUTROPHILS 7.3 thou/uL (1.6-8.1); BASOPHILS 0.3 %; EOSINOPHILS 1.4 %; LYMPHOCYTES 13.6 %; MONOCYTES 6.6 %; POLYS 78.1 %
--- NOTE | 2018-07-10 15:34 | EKG ---
[place] [address] ELECTROCARDIOGRAM REPORT Name: JEFF GUZMAN Room: [place] [address] ADM IN ..#: [id number] Admission: 07/10/18 Attend Phys: Elayne Gregorio MD Discharge: Date of : 61 Report #: [id number] THIS REPORT FOR: //name// [facility] ED Test Date: 2018-07-10 Test Time: 12:10:33 Pat Name: JEFF GUZMAN Department: Room: [facility] Gender: M Primary Health Organisation Manager: WADE : 1965 Requested By: Aldo Bliss Order Number: [id number] MD: Meliton Juarez Measurements Intervals [employer] Rate: 98 P: 11 MS: 189 QRS: -26 QRSD: 100 T: 93 QT: 408 QTc: 522 Interpretive Statements Sinus rhythm Probable left atrial enlargement Abnormal R-wave progression, late transition Left ventricular hypertrophy Prolonged QT interval Baseline wander in lead(s) V2,V4 Compared to ECG 03/19/2018 16:19:43 Prolonged QT interval now present Atrial premature complex(es) no longer present Electronically Signed On 07-10-2018 15:34:32 SPEEDER OPERATOR by Meliton Juarez [email or web address] <ELECTRONICALLY SIGNED> By: Meliton Juarez MD, FACC 07/10/18 1534 1210 1210 Meliton Juarez MD, FAC /EPI
[2018-07-10 16:30] VITALS: BP 163/114
[2018-07-10 16:52] VITALS: BP 160/110
[2018-07-10 20:00] VITALS: BP 148/108
[2018-07-11] VITALS: BP 143/112
[2018-07-11 04:00] VITALS: BP 141/110
[2018-07-11 05:23] LABS: HEMOGLOBIN 13.5 gm/dL (14.0-18.0); MCH 30.9 pg (26.0-34.0); MCV 93.7 fL (80.0-100.0); RBC 4.38 mil/uL (4.50-6.00); RDW-CV 17.7 % (10.5-14.5)
[2018-07-11 08:00] VITALS: BP 144/117
[2018-07-11 10:34] LABS: ALKALINE PHOSPHATASE 112 U/L (46-116); ANION GAP 8 mmol/L (7-16); BUN 29 mg/dL (7-18); CALCIUM 8.7 mg/dL (8.5-10.1); CHLORIDE 103 mmol/L (98-107); CO2 26 mmol/L (21-32); CREATININE 1.9 mg/dL (0.6-1.3); GLUCOSE 180 mg/dL (70-99); POTASSIUM 4.1 mmol/L (3.5-5.1); SGOT 19 U/L (15-37); SGPT 26 U/L (30-65); SODIUM 137 mmol/L (136-145); TOTAL BILIRUBIN 1.1 mg/dL (<0.1-1.0); TOTAL PROTEIN 7.3 g/dL (6.4-8.2); TROPONIN-I LEVEL <0.06 ng/mL (<0.06)
[2018-07-11 11:43] VITALS: BP 170/125
--- NOTE | 2018-07-11 12:43 | CON ---
[address] [address] CONSULTATION Name: JEFF GUZMAN Room: [address] IN .R.#: [id number] Admission: 07/10/18 Attend Phys: Elayne Gregorio MD Discharge: Date of : 61 Report #: [id number] THIS REPORT FOR: //name// CC: Dmitri Gregorio DATE OF SERVICE: 07/10/2018 HISTORY OF PRESENT ILLNESS: The patient is a 52-year-old single black male who I was asked to see in the hospital today after he complained of being short of breath. The patient has an extensive past medical history. He has had multiple hospitalizations here at [facility]. He has a history of morbid obesity. He is 6 feet tall and previously weighed over 400 pounds. He had lap band surgery in [place]. He now weighs about 280 pounds. Previous echocardiogram showed an ejection fraction of 60%. Echocardiogram a year ago showed an ejection fraction of 45%. He has been on multiple medications in the past. Unfortunately, the patient notes he ran out of his medications about a month ago. He went to refill his medications and there were no refills. He states that for the past several days, he has had progressive shortness of breath. He denied any fever or cough. He has had edema. He finally came to the hospital today and was admitted. He denies any significant chest pain, palpitation or syncope. PAST MEDICAL HISTORY: He has had two back surgeries, knee surgery, lap band surgery and hypertension. MEDICATIONS: He had previously been on Flomax, Lipitor, Coreg, lisinopril, aspirin and furosemide. ALLERGIES: He has no known drug allergies. FAMILY HISTORY: Positive for congestive heart failure. SOCIAL HISTORY: He is single, lives here in [place] with a roommate. He is on disability because of chronic back pain. 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 Smokes half pack of cigarettes a day. No alcohol abuse. Does smoke occasional marijuana. REVIEW OF SYSTEMS: He apparently has had a previous TIA. He has no history of asthma, peptic ulcer disease, liver disease, kidney disease, psychiatric illness or chronic skin condition. PHYSICAL EXAMINATION: GENERAL: Revealed an obese middle-aged black male, lying in bed, he appeared in no acute distress. VITAL SIGNS: He had a blood pressure of 140/80, pulse 90 and he is afebrile. HEENT: He is anicteric. Conjunctivae pink. [place]uc[place] [address] CONSULTATION Name: JEFF GUZMAN Room: [address]#: [id number] Admission: 07/10/18 Attend Phys: Elayne Gregorio MD Discharge: Date of : 61 Report #: [id number] NECK: Veins do not appear distended. No carotid bruits. Neck is supple. CHEST: Clear to auscultation. CARDIOVASCULAR: Regular rate and rhythm. ABDOMEN: Obese. EXTREMITIES: He had trace edema. Dorsalis pedis pulse could not be palpated. SKIN: Cool and dry. NEUROLOGIC: Nonfocal. LYMPH: No adenopathy. MUSCULOSKELETAL: No joint effusion. RADIOLOGICAL DATA: His ECG on admission showed a sinus rhythm with late transition, nonspecific T-wave changes. His workup, he had a chest x-ray in the Emergency Room showed cardiomegaly and pulmonary edema. LABORATORY WORK: Sodium 139, creatinine 1.4 and it has been as high as 2.8 last year. His liver function studies were normal. Troponin 0.11. BNP 17,392. Previous TSH was 1.0. His white blood cell count 9.3 and hemoglobin 13.1. IMPRESSION AND RECOMMENDATIONS: 1. Acute on chronic systolic heart failure. The patient apparently ran out of his medications. I would recommend resuming his beta janessa, VIANEY inhibitor, spironolactone and Lasix. 2. Hypertension. I would recommend resuming his medications. 3. Obesity. Previous lap band surgery. 4. Tobacco abuse. 5. History of illicit drug use. 6. Chronic back pain. <ELECTRONICALLY SIGNED> By: Meliton Juarez MD, FACC 07/11/18 1243 1709 0432Daviyesenia Juarez MD, FACC /nt
--- NOTE | 2018-07-11 15:06 | 2DMMODE ---
[place] [address] 2 D/M-MODE ECHOCARDIOGRAM Name: JEFF GUZMAN Room: [address] IN [facility]#: [id number] Admission: 07/10/18 Attend Phys: Elayne Gregorio, Discharge: Date of : 61 Date of Service: 07/11/18 1505 Report #: [id number] THIS REPORT FOR: //name// APPROVED REPORT Study performed: 07/11/2018 13:53:36 EXAM: Comprehensive 2D, Doppler, and color-flow Echocardiogram Patient Location: In-Patient Room #: [facility] Status: routine BSA: 2.48 HR: 85 bpm BP: 141/110 mmHg Rhythm: NSR Other Information Study Quality: Good Indications Non STEMI Dyspnea 2D Dimensions IVSd: 18.49 (7-11mm) LVOT Diam: 25.29 (18-24mm) LVDd: 62.30 mm PWd: 15.18 (7-11mm) Ascending Ao: 41.60 (22-36mm) LVDs: 48.38 (25-40mm) Aortic Root: 36.46 mm Volumes Left Atrial Volume (Systole) LA ESV Index: 68.60 mL/m2 Aortic Valve AoV Peak Aleksey.: 1.21 m/s AO Peak Gr.: 5.88 mmHg LVOT Max P.51 mmHg AO Mean Gr.: 3.41 mmHg LVOT Mean P.66 mmHg LVOT Max V: 0.94 m/s AO V2 VTI: 21.55 cm LVOT Mean V: 0.58 m/s VINCE (VTI): 3.48 cm2 LVOT V1 VTI: 14.93 cm Mitral Valve E/A Ratio: 2.67 MV Decel. Time: 116.03 [place] [address] 2 D/M-MODE ECHOCARDIOGRAM Name: JEFF GUZMAN Room: [address] IN ..#: [id number] Admission: 07/10/18 Attend Phys: Elayne Gregorio, Discharge: Date of : 61 Date of Service: 07/11/18 1505 Report #: [id number] MV E Max Aleksey.: 1.20 m/s MV PHT: 33.65 ms MVA (PHT): 6.54 cm2 TDI E/Lateral E': 9.23 Lateral E' Aleksey.: 0.13 m/s Pulmonary Valve PV Peak Aleksey.: 0.85 m/s PV Peak Gr.: 2.89 mmHg Tricuspid Valve RAP Estimate: 10.00 mmHg TR Peak Gr.: 37.00 mmHg RVSP: 47.00 mmHg PA Pressure: 47.00 mmHg Left Ventricle Left ventricle is moderately dilated. There is severe global hypokinesis of the left ventricle. Moderate concentric left ventricular hypertrophy. Left ventricular systolic function is severely decreased. LVEF is 25-30%. Grade IV - fixed restrictive diastolic dysfunction. Right Ventricle Right ventricle is mildly dilated. The right ventricular systolic function is normal. Atria Left atrium is severely dilated. Right atrium is moderately dilated. Aortic Valve The aortic valve is normal in structure. Trace aortic regurgitation. There is no aortic valvular stenosis. Mitral Valve The mitral valve is normal in structure. Mild mitral regurgitation. No evidence of mitral valve stenosis. Tricuspid Valve The tricuspid valve is normal in structure. Mild tricuspid regurgitation. Moderate pulmonary hypertension. Pulmonic Valve The pulmonary valve is normal in structure. Trace pulmonic [place] [address] 2 D/M-MODE ECHOCARDIOGRAM Name: JEFF GUZMAN Room: [address] IN [facility]#: [id number] Admission: 07/10/18 Attend Phys: Elayne Gregorio, Discharge: Date of : 61 Date of Service: 07/11/18 1505 Report #: [id number] Great Vessels Aortic root is mildly dilated. IVC is dilated and collapses <50% with inspiration. Pericardium There is no pericardial effusion. <Conclusion> Left ventricle is moderately dilated. Moderate concentric left ventricular hypertrophy. Left ventricular systolic function is severely decreased. LVEF is 25-30%. Grade IV - fixed restrictive diastolic dysfunction. There is severe global hypokinesis of the left ventricle. Right ventricle is mildly dilated. Left atrium is severely dilated. Right atrium is moderately dilated. Trace aortic regurgitation. Mild mitral regurgitation. Mild tricuspid regurgitation. Moderate pulmonary hypertension. Aortic root is mildly dilated. IVC is dilated and collapses <50% with inspiration. <ELECTRONICALLY SIGNED> By: Jorge Luis Valencia MD, FACC 07/11/18 1505 1505 1505 Jorge Luis Valencia MD, FACC /INF
[2018-07-11 17:31] VITALS: BP 141/96
[2018-07-11 20:00] VITALS: BP 134/106
[2018-07-12] VITALS: BP 126/91
[2018-07-12 04:00] VITALS: BP 134/95
[2018-07-12 05:13] LABS: HEMOGLOBIN 11.9 gm/dL (14.0-18.0); MCH 30.9 pg (26.0-34.0); MCHC 32.9 g/dL (28.0-37.0); MCV 93.7 fL (80.0-100.0); MPV 10.2 fl. (7.2-11.1); RBC 3.85 mil/uL (4.50-6.00); RDW-CV 18.1 % (10.5-14.5); WBC 14.8 thou/uL (4.0-11.0)
[2018-07-12 08:00] VITALS: BP 160/126
[2018-07-12 09:16] LABS: CALCIUM 8.2 mg/dL (8.5-10.1); CREATININE 2.3 mg/dL (0.6-1.3); POTASSIUM 4.9 mmol/L (3.5-5.1)
[2018-07-12 11:52] VITALS: BP 137/84
[2018-07-12 15:47] VITALS: BP 134/100
--- NOTE | 2018-07-12 16:31 | EKG ---
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: : 1965 Requested By: Sandy Reyna Order Number: [id number] Reading MD: Meliton Juarez Measurements Intervals [place] Rate: 98 P: 48 AR: 174 QRS: -29 QRSD: 99 T: QT: 372 QTc: 476 Interpretive Statements Sinus tachycardia Atrial premature complex Probable left atrial enlargement Left ventricular hypertrophy Borderline T abnormalities, lateral leads Compared to ECG 07/10/2018 12:10:33 Atrial premature complex(es) now present Sinus rhythm no longer present Prolonged QT interval no longer present Electronically Signed On 07-12-2018 16:31:04 CLOTHESPIN MACHINE OPERATOR by Meliton Juarez [email or web address] <ELECTRONICALLY SIGNED> By: Meliton Juarez MD, [facility] 07/12/18 1631 1136 1136 Meliton Juarez MD, [facility] /EPI
[2018-07-12 20:00] VITALS: BP 144/110
[2018-07-13] VITALS: BP 150/109
[2018-07-13 00:43] LABS: URINE BILIRUBIN NEGATIVE (Negative); URINE BLOOD NEGATIVE (Negative); URINE CLARITY CLEAR; URINE COLOR YELLOW; URINE GLUCOSE-RANDOM NEGATIVE (Negative); URINE KETONES NEGATIVE (Negative); URINE LEUKOCYTES-REFLEX NEGATIVE (Negative); URINE NITRITE-REFLEX NEGATIVE (Negative); URINE PROTEIN TRACE (Negative); URINE UROBILINOGEN 0.2 E.U./dl (0.2-1.0)
[2018-07-13 00:52] LABS: AMP/METHAMP POSITIVE (Negative); BARBITURATES Negative (Negative); BENZODIAZEPINES Negative (Negative); COCAINE Negative (Negative); METHADONE Negative (Negative); OPIATES POSITIVE (Negative); PCP Negative (Negative); THC POSITIVE (Negative)
[2018-07-13 04:00] VITALS: BP 156/109
[2018-07-13 04:58] LABS: HEMATOCRIT 41.7 % (42.0-52.0); HEMOGLOBIN 13.7 gm/dL (14.0-18.0); MCH 30.8 pg (26.0-34.0); MCHC 32.9 g/dL (28.0-37.0); MCV 93.6 fL (80.0-100.0); MPV 9.8 fl. (7.2-11.1); RBC 4.46 mil/uL (4.50-6.00); RDW-CV 18.6 % (10.5-14.5); WBC 12.2 thou/uL (4.0-11.0)
[2018-07-13 07:30] VITALS: BP 163/115
[2018-07-13 08:23] LABS: ANION GAP 4 mmol/L (7-16); BUN 50 mg/dL (7-18); CHLORIDE 100 mmol/L (98-107); CO2 28 mmol/L (21-32); CREATININE 2.3 mg/dL (0.6-1.3); GLUCOSE 181 mg/dL (70-99); POTASSIUM 5.1 mmol/L (3.5-5.1); SODIUM 132 mmol/L (136-145); TROPONIN-I LEVEL <0.06 ng/mL (<0.06)
[2018-07-13 11:55] VITALS: BP 129/99
[2018-07-13 16:20] VITALS: BP 149/103
[2018-07-13 20:00] VITALS: BP 149/110
[2018-07-14] VITALS: BP 169/119
[2018-07-14 04:00] VITALS: BP 160/117
[2018-07-14 08:00] VITALS: BP 150/117
[2018-07-14 12:00] VITALS: BP 154/106
[2018-07-14 19:40] VITALS: BP 155/113
[2018-07-15] VITALS: BP 167/123
[2018-07-15 08:00] VITALS: BP 171/128
[2018-07-15 12:00] VITALS: BP 158/117
[2018-07-15 16:00] VITALS: BP 145/98
[2018-07-15 20:00] VITALS: BP 147/99
[2018-07-16 00:57] VITALS: BP 146/108
[2018-07-16 04:30] VITALS: BP 148/103
[2018-07-16 08:00] VITALS: BP 156/125
--- NOTE | 2018-07-16 15:54 | CARDNUC ---
[place] [address] CARDIAC NUCLEAR IMAGING REPORT Name: JEFF GUZMAN Room: [address] IN [facility]#: [id number] Admission: 07/10/18 Attend Phys: Elayne Gregorio, Discharge: Date of : 61 Date of Service: 07/16/18 1554 Report #: [id number] THIS REPORT FOR: //name// ADDENDUM APPROVED REPORT Imaging Protocol: Rest Tc-99m/Stress Tc-99m 1 day Study performed: 07/13/2018 10:18:00 Indication: Chest pain, Dyspnea, Elevated Troponin Patient Location: In-Patient Room #: [facility] Stress Tech: Marylou Bennett Stress Nurse: Summer Feng RN NM Tech:LIANNE Boykin Ht: 5 ft 10 in Wt: 305 lbs BSA: 2.50 m2 HR: 77 bpm BP: 165/104 mmHg BMI: 43.75 Rhythm: NSR Medical History Medical History: COPD, CAD, Stroke/TIA Medications: Solu-Medrol, Atorvastatin, Carvedilol, Amlodipinde, ASA, HCTZ, Spironolactone, NTG, Lovenox Allergies: No known drug allergies Cardiac Risk Factors: HTN, Age, Hyperlipidemia, Tobacco History (Current/Recent), FHX of CAD Pharmacologic Stress Pharmacologic stress test was performed by injecting Regadenoson 0.4 mg IV push over 10-15 seconds immediately followed by the intravenous injection of 41.0 mCi of Tc-99m Sestamibi. Time of stress injection: 13:50 Date: 07/15/2018 Administration Route: IV Administration Site: Right Arm Heart Rate at time of stress injection: 98 bpm. Gated Stress SPECT was performed 40 minutes after stress injection. The images were gated to evaluate regional wall motion and calculate left ventricular ejection fraction. Stress Test Details Stress Test: Pharmacologic stress testing performed using 0.4 mg of regadenoson per 5 mL given IV over 10 seconds. Reason for pharmacologic stress test: Obesity, [place] [address] CARDIAC NUCLEAR IMAGING REPORT Name: JEFF GUZMAN Room: [address]#: [id number] Admission: 07/10/18 Attend Phys: Elayne Gregorio, Discharge: Date of : 61 Date of Service: 07/16/18 1554 Report #: [id number] COPD. HR Max Heart Rate (APMHR): 166 bpm Resting HR: 77 bpm Target HR (85% APMHR): 141 bpm Max HR Achieved: 98 bpm % of APMHR: 59 Recovery HR: 88 bpm HR response to stress: Normal HR response to stress BP Resting BP: 165/104 mmHg Max BP: 158/119 mmHg Recovery BP: 157/116 mmHg BP response to stress: Baseline HTN ECG Resting ECG: Sinus Rhythm Stress ECG: Sinus Rhythm ST Change: None Recovery ECG: Sinus Rhythm Recovery ST Change: None Recovery ST Deviation: 0 mm Clinical Reason for Termination: Completed protocol Stress Symptoms: None Exercise capacity: 1.0 METs Stress ECG Conclusion negative Study Quality Study: Poor Artifact: Severe Motion artifactSoft tissue attenuation artifact Study Data Post stress, the left ventricular ejection was 28%.. SSS: 21 SRS: 17 SDS: 4 TID = 0.79. there is limited edge detection on this study with technical limitations, EF is likely inaccurate Perfusion Review of SPECT images at rest reveal large [place] [address] CARDIAC NUCLEAR IMAGING REPORT Name: JEFF GUZMAN Room: [address]#: [id number] Admission: 07/10/18 Attend Phys: Elayne Gregorio, Discharge: Date of : 61 Date of Service: 07/16/18 1554 Report #: [id number] of the inferior and lateral wall. These defect are unchanged following vasodilator stress.The patient left AMA before rest images were taken. Wall Motion at least moderate LV dysfunction, elevated LV end diastolic function Nuclear Conclusion ECG Findings: negative for ischemia Clinical Findings: negative for ischemia Nuclear Findings: possible ischemia Exercise Capacity: normal Left Ventricular Function: abnormal Risk Study: moderate There is a defect of the inferior and lateral wall, which could represent ichemia or infarct. Completion of study with resting imaging is recommended <Conclusion> negative <ELECTRONICALLY SIGNED> By: Timmy Odell MD, FACC 07/16/18 1554 1554 1554 Timmy Odell MD, FACC /INF
--- NOTE | 2018-07-17 11:33 | CON ---
[address] [address] CONSULTATION Name: JEFF GUZMANL Room: [address] IN .R.#: [id number] Admission: 07/10/18 Attend Phys: Elayne Gregorio MD Discharge: 07/16/18 Date of : 61 Report #: [id number] THIS REPORT FOR: //name// CC: Dmitri Gregorio DATE OF SERVICE: 07/15/2018 LOCATION: Room 221. INDICATION FOR CONSULTATION: Mild hypoxemia. HISTORY OF PRESENT ILLNESS: The patient is a 52-year-old male who was admitted to the hospital on 07/10/2018. The patient had uncontrolled hypertension and some systolic congestive heart failure. He was diuresed. His chest x-ray cleared up. His drug screen was positive for benzos and opiates and methamphetamines. He has been having some withdrawal reactions today. He took off his oxygen and his O2 sats were 88%. Most times have been 94-96%. He does not have oxygen at home. He has CPAP at home that he occasionally uses and he has a nebulizer machine at home. It was difficult to get a history from him. He may have some bipolar tendencies or maybe just some withdrawal. Anyway, it was tough to get him to concentrate and focus on the history and physical exam. PAST MEDICAL HISTORY: He has history of hypertension, systolic congestive heart failure, dyspnea, probably obstructive sleep apnea, probably not well treated at home and some chronic bronchitis, occasional chest pain. Still has chronic tobacco use. Other medical problems include constipation. Again, some chronic bronchitis, hypertensive urgency, marijuana and methamphetamine use and some dehydration. ALLERGIES: He has no known medical allergies. CURRENT OUTPATIENT MEDICATIONS: Include tamsulosin 0.4 mg daily, atorvastatin 10 mg daily, sildenafil, Viagra 100 mg p.r.n., carvedilol 25 mg b.i.d., lisinopril 20 mg daily and aspirin 81 mg daily, Lasix is 80 mg p.o. daily. He has received an IV dose, also supposed to be on hydrochlorothiazide 25 mg daily, albuterol nebulizers as needed. PAST SURGICAL HISTORY: A back surgery in 2012, he had left leg surgery. He has had a previous CVA. REVIEW OF SYSTEMS: A 14-point review of systems reviewed and negative except for pertinent positives noted in the HPI. FAMILY HISTORY: Denies any [place] [address] CONSULTATION Name: JEFF GUZMAN Room: [address]#: [id number] Admission: 07/10/18 Attend Phys: Elayne Gregorio MD Discharge: 07/16/18 Date of : 61 Report #: [id number] SOCIAL HISTORY: The patient still smokes a pack a day, has about a 30 or 40 pack year history of smoking. Also, smokes marijuana and really would not answer any questions when I asked about methamphetamine use and other illicit drug use. PHYSICAL EXAMINATION: GENERAL: Somewhat agitated 52-year-old black male in no acute distress. He was sitting up and talking to the nurse and I in full sentences. VITAL SIGNS: His blood pressure was 156/100 at that time. Heart rate 84, respirations were 16 and temperature is 36.5 degrees, room air sats 96% at this time. Previously, had one O2 sat when he just woke up from a nap early in the morning was 88%. He is 6 feet tall, weight is 140 kilograms or 300 pounds and BMI is 43. HEENT: Unremarkable. His mucous membranes are moist. His pharynx was crowded, probably has level 3 or level 4 Mallampati score. NECK: Thick with about size 18 collar. CHEST: Showed clear breath sounds without wheeze or rhonchi. CARDIOVASCULAR: Regular rate and rhythm without murmur, gallop or rub. Heart rate 84. ABDOMEN: Obese without masses or megaly. EXTREMITIES: Trace edema, no cyanosis or clubbing. NEUROLOGIC: Grossly intact for him sitting up at the bedside and following some simple commands. LABORATORY DATA: From 07/15/2018, hemoglobin 16, white count 12,800, MCV is 92, platelets are 390,000. Normal differential. Sodium is 138, potassium is 5.5, BUN is 75, creatinine 2.9, glucose is 131, calcium is 8.2 and LFTs within normal limits. Anti-BNP initially was 8961. He has had Lasix since then. Urine drug screen was positive for urine opiates, methamphetamines and marijuana. Coags are within normal limits. No ABGs were noted. Chest x-ray from 07/13/2018 shows resolving pulmonary edema, still had moderate cardiomegaly. Lung reid were clear. IMPRESSION: 1. Mild hypoxemia, multifactorial etiologies. 2. Systolic congestive heart failure. 3. Uncontrolled hypertension. 4. Probably untreated obstructive sleep apnea. 5. Drug use. PLAN: The patient did not seem interested in anything I offered to him as far as supplemental oxygen or wearing his CPAP machine at home. We will keep on some breathing treatments 2-4 times a day as long as his room air sats is 94-96%. I think he will be okay and safe to go home without supplemental oxygen. I encouraged him to wear his CPAP at home and to quit smoking. He states he will think about it. The patient has also [place] [address] CONSULTATION Name: JEFF GUZMAN KATHY Room: [address] IN .R.#: [id number] Admission: 07/10/18 Attend Phys: Elayne Gregorio MD Discharge: 07/16/18 Date of : 61 Report #: [id number] AMA. I will go ahead and sign off for pulmonary care and will be happy to see him again upon request. <ELECTRONICALLY SIGNED> By: Pranav Jiménez MD 07/17/18 1133 1510 2207Aelvis Bui MD /nt
== END 2018-07-16 14:40 | disposition left against medical advice (07) | DRG 291 ==
LOC: M.ERS 11:39 → M.TBA-ER 13:07 → M.2W 13:07
PROVIDERS: Family Medicine; Internal Medicine; ADMIT Internal Medicine
PROC: 05HY33Z Insertion of Infusion Device into Upper Vein, Percutaneous Approach (ICD-10-PCS; principal; 2018-07-10)
DX: I11.0 Hypertensive heart disease with heart failure (principal); N17.0 Acute kidney failure with tubular necrosis; G92 Toxic encephalopathy; J96.00 Acute respiratory failure, unspecified whether with hypoxia or hypercapnia; Z68.41 Body mass index [BMI] 40.0-44.9, adult; I50.43 Acute on chronic combined systolic (congestive) and diastolic (congestive) heart failure; M19.90 Unspecified osteoarthritis, unspecified site; J44.9 Chronic obstructive pulmonary disease, unspecified; F17.210 Nicotine dependence, cigarettes, uncomplicated; E66.01 Morbid (severe) obesity due to excess calories; I25.10 Atherosclerotic heart disease of native coronary artery without angina pectoris; G89.29 Other chronic pain; M54.9 Dorsalgia, unspecified; F41.8 Other specified anxiety disorders; G47.33 Obstructive sleep apnea (adult) (pediatric); Z53.21 Procedure and treatment not carried out due to patient leaving prior to being seen by health care provider; Z91.14 Patient's other noncompliance with medication regimen; Z86.73 Personal history of transient ischemic attack (TIA), and cerebral infarction without residual deficits; I25.2 Old myocardial infarction; Z79.899 Other long term (current) drug therapy; Z79.82 Long term (current) use of aspirin; Z82.49 Family history of ischemic heart disease and other diseases of the circulatory system

== ENCOUNTER 2018-08-19 13:54 | Inpatient (IN) | payer OTHER ==
[~2018-08-19] VITALS: Ht 182.9 cm; Wt 133.9 kg
[2018-08-19 14:05] VITALS: BP 148/127
[2018-08-19 14:43] LABS: ABSOLUTE BASOPHILS 0.1 thou/uL (0.0-0.2); ABSOLUTE EOSINOPHILS 0.1 thou/uL (0.0-0.7); ABSOLUTE LYMPHOCYTES 2.1 thou/uL (0.8-5.3); ABSOLUTE MONOCYTES 0.7 thou/uL (0.0-1.2); ABSOLUTE NEUTROPHILS 5.6 thou/uL (1.6-8.1); HEMATOCRIT 38.9 % (42.0-52.0); LYMPHOCYTES 24.5 %; MCH 31.1 pg (26.0-34.0); MCHC 33.4 g/dL (28.0-37.0); MONOCYTES 7.9 %; MPV 8.3 fl. (7.2-11.1); NUCLEATED RBCS 0 /100WBC; PLATELET COUNT* 314 thou/uL (150-400); POLYS 65.6 %; RBC 4.18 mil/uL (4.50-6.00); WBC 8.5 thou/uL (4.0-11.0)
[2018-08-19 14:55] LABS: APTT 30.9 Seconds (25.0-31.3); INR 1.1; PROTIME 11.3 Seconds (9.20-11.50)
[2018-08-19 15:01] LABS: CALCIUM 8.2 mg/dL (8.5-10.1); CREATININE 1.8 mg/dL (0.6-1.3); POTASSIUM 3.5 mmol/L (3.5-5.1); TROPONIN-I LEVEL 0.1 ng/mL (<0.06)
[2018-08-19 15:03] LABS: TOTAL BILIRUBIN 1.9 mg/dL (<0.1-1.0); TOTAL PROTEIN 6.2 g/dL (6.4-8.2)
--- NOTE | 2018-08-19 15:55 | NUR ---
LEFT CEPHALIC VESSEL ACCESSED FOR #20 HARSHA POWERGLIDE MIDLINE. LINE ADVANCED WITH NO RESISTANCE MET, FLUSHES FREELY WITH GOOD BRISK BLOOD RETURN APPRECIATED. SECURED WITH STATLICK IV PLUS AND DRESSED TI BIOPATCH AND BIO-OCCLUSIVE DRESSING. REPORT GIVEN TO NURSING STAFF.
[2018-08-19 16:18] LABS: BE -2.2 mmol/L (-2 to +3); PCO2 33.9 mmHg (35.0-45.0); PO2 77.5 mmHg (75.0-100.0)
[2018-08-19 16:41] LABS: AMP/METHAMP POSITIVE (Negative); BARBITURATES Negative (Negative); BENZODIAZEPINES Negative (Negative); COCAINE Negative (Negative); METHADONE Negative (Negative); OPIATES Negative (Negative); PCP Negative (Negative); THC POSITIVE (Negative)
--- NOTE | 2018-08-19 18:04 | EKG ---
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 <ELECTRONICALLY SIGNED> By: Meliton Juarez MD, FACC 08/19/18 1804 1420 1420 Meliton Juarez MD, FAC /EPI
[2018-08-19 19:26] VITALS: BP 180/124
[2018-08-19 20:00] VITALS: BP 165/114
[2018-08-20] VITALS: BP 128/95
[2018-08-20 04:33] VITALS: BP 143/95
--- NOTE | 2018-08-20 04:55 | NUR ---
RECEIVED REPORT FROM EQUIPMENT OR MACHINERY CLEANERASHIA AARON AT 192, PT ARRIVED VIA CART AT 1940. PT AAOX4, ORIENTED TO ROOM AND CALL LIGHT. PT VERY RESTLESS, PT OBSERVED TO HAVE DIFFICULT TIME FOCUSING ON QUESTIONS ASKED. MANAGER REIMBURSEMENT IN PLACE, TRACING SINUS RHYTHM. DENIES PAIN THIS SHIFT. HOURLY ROUNDING COMPLETED, FALL PRECAUTIONS IN PLACE. CALL LIGHT WITHIN REACH.
[2018-08-20 05:21] LABS: ABSOLUTE BASOPHILS 0.1 thou/uL (0.0-0.2); ABSOLUTE MONOCYTES 0.4 thou/uL (0.0-1.2); ABSOLUTE NEUTROPHILS 6.8 thou/uL (1.6-8.1); BASOPHILS 0.6 %; HEMATOCRIT 41.4 % (42.0-52.0); HEMOGLOBIN 13.6 gm/dL (14.0-18.0); LYMPHOCYTES 11.6 %; MCH 30.7 pg (26.0-34.0); MCHC 32.9 g/dL (28.0-37.0); MCV 93.4 fL (80.0-100.0); MONOCYTES 4.9 %; MPV 8.7 fl. (7.2-11.1); NUCLEATED RBCS 0 /100WBC; PLATELET COUNT* 342 thou/uL (150-400); POLYS 82.9 %; RBC 4.43 mil/uL (4.50-6.00); WBC 8.2 thou/uL (4.0-11.0)
[2018-08-20 05:50] LABS: CALCIUM 8.2 mg/dL (8.5-10.1); CREATININE 2.1 mg/dL (0.6-1.3)
[2018-08-20 07:30] VITALS: BP 145/95
--- NOTE | 2018-08-20 10:51 | NUR ---
VSS, ASSUMED CARE IN THE AM, ASSESSMENT PERFORMED AND CHARTED, FALL PRECAUTIONS IN PLACE AND CALL LIGHT IN REACH, PT IS A&O3-4 HE IS FORGETFUL AND VERY SLEEPY, HE IS UP WITH ONE AND CANE, DENEIS ANY PAIN IS TRACING SR ON THE MONITOR, PT IS ON RA, AND HIS GOAL IS SAFETY AND TO IMPROVE ACTIVITY, PT HAD A 13 BEAT OF V-TACH, I REACHED OUT TO DR. ELY AND KIRSTY WITH NO NEW ORDERS, WILL FOLLOW WITH PLAN OF CARE, PT IS ASYMPTOMATIC
[2018-08-20 12:00] VITALS: BP 143/99
--- NOTE | 2018-08-20 12:05 | NUR ---
Pt was sound asleep when CM went to assess, will f/u later
--- NOTE | 2018-08-20 14:17 | CON ---
[address] [address] CONSULTATION Name: JEFF GUZMAN Room: [address] IN .R.#: [id number] Admission: 08/19/18 Attend Phys: Wilder Zacarias MD Discharge: Date of : 61 Report #: [id number] THIS REPORT FOR: //name// CC: Wilder Rodríguez DATE OF SERVICE: 08/19/2018 HISTORY OF PRESENT ILLNESS: The patient is a 53-year-old single black male who I was asked to see in the hospital after complaining of being short of breath. The patient has a history of morbid obesity. He previously weighed over 400 pounds. He is 6 feet tall. He had lap band surgery in [place] and now weighs close to 300 pounds. Previous echocardiogram showed left ventricular dysfunction. He is felt to have a cardiomyopathy. He was actually just admitted here last month for shortness of breath. The patient was brought back to the hospital with a complaint of being short of breath and a cough. He has had swelling of his feet. He denies significant chest pain or syncope. PAST MEDICAL HISTORY: He has had 2 back surgeries, knee surgery, hypertension. MEDICATIONS: His previous medications include Lipitor, Lasix, hydrochlorothiazide, carvedilol, lisinopril. He has been on amlodipine in the past. ALLERGIES: He has no known drug allergies. FAMILY HISTORY: Negative for heart disease. SOCIAL HISTORY: He apparently went to [employer]. 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 He is now . He lives here in [place] with a roommate. Rarely smokes. No alcohol abuse. He has a history of drug abuse in the past including methamphetamines, cocaine and speed. REVIEW OF SYSTEMS: No history of stroke, asthma, peptic ulcer disease, liver disease, kidney disease, psychiatric illness. PHYSICAL EXAMINATION: GENERAL: Revealed a large, obese black male, lying in bed, he appeared in no acute distress. VITAL SIGNS: He had a blood pressure 140/70, pulse is 90, he is afebrile. HEENT: He was anicteric. Mucous membranes appear moist. NECK: Veins difficult to assess. CHEST: Clear to auscultation. CARDIAC: Regular rate and rhythm. ABDOMEN: [place] [address] CONSULTATION Name: JEFF GUZMAN KATHY Room: [address]#: [id number] Admission: 08/19/18 Attend Phys: Wilder Zacarias MD Discharge: Date of : 61 Report #: [id number] EXTREMITIES: Had trace edema. SKIN: Cool and dry. NEUROLOGIC: Nonfocal. DIAGNOSTIC DATA: His ECG shows a sinus rhythm, nonspecific T-wave changes. His x-ray he had portable chest x-ray that showed cardiomegaly, tortuous aorta, actually clear lung reid. He had nuclear stress test done last month that showed ejection fraction 28%, defect in the inferior wall, which was fixed with no ischemia. Possible previous infarction. Apparently, the patient left AMA before rest images could be taken. His last echocardiogram done last month showed an ejection fraction of only 20-25%, biatrial enlargement. LABORATORY DATA: Today, sodium 144, creatinine 1.8, it has actually been 2.3 last month. Albumin 3.0. Troponin 0.09. BNP 14,825. His T4 in February was 1.24. White blood cell count 8.5, hemoglobin 13. IMPRESSION AND RECOMMENDATIONS: 1. Acute on chronic systolic heart failure. 2. History of drug abuse. 3. Morbid obesity. <ELECTRONICALLY SIGNED> By: Meilton Juarez MD, FACC 08/20/18 1417 1705 2239Meliton Juarez MD, FACC /nt
--- NOTE | 2018-08-20 16:03 | NUR ---
Pt is A&O. States that he lives at home with a friend. Independent and active. Pt uses a cane for mobility. No home o2. No hx of HH or SNF. Pt stated that [facility] CM discussed positive drug screen, per Pt, "if someone comes over with something, I join in." CM offered drug tx info, Pt declined, Pt does not seem to have a desire to change his lifestyle dispite education per the physician of the need to change. Following.
[2018-08-20 16:22] VITALS: BP 122/83
[2018-08-20 20:00] VITALS: BP 101/62
[2018-08-21] VITALS: BP 113/78
[2018-08-21 04:44] VITALS: BP 98/66
[2018-08-21 05:21] LABS: ABSOLUTE BASOPHILS 0.1 thou/uL (0.0-0.2); ABSOLUTE EOSINOPHILS 0.1 thou/uL (0.0-0.7); ABSOLUTE LYMPHOCYTES 2.7 thou/uL (0.8-5.3); ABSOLUTE MONOCYTES 0.7 thou/uL (0.0-1.2); ABSOLUTE NEUTROPHILS 5.8 thou/uL (1.6-8.1); BASOPHILS 0.6 %; EOSINOPHILS 0.9 %; HEMATOCRIT 38.6 % (42.0-52.0); HEMOGLOBIN 12.7 gm/dL (14.0-18.0); LYMPHOCYTES 28.7 %; MCH 30.9 pg (26.0-34.0); MCV 93.8 fL (80.0-100.0); MONOCYTES 7.6 %; MPV 8.8 fl. (7.2-11.1); NUCLEATED RBCS 0 /100WBC; PLATELET COUNT* 277 thou/uL (150-400); POLYS 62.2 %; RBC 4.12 mil/uL (4.50-6.00); RDW-CV 15.9 % (10.5-14.5); WBC 9.3 thou/uL (4.0-11.0)
--- NOTE | 2018-08-21 05:28 | NUR ---
ASSUMED PT CARE @ 1930. PT HAS BEEN REQUESTING EXCESSIVE AMOUNTS OF FOOD, MULTIPLE JUICES, MULTIPLE ICE CREAMS, MULTIPLE MILKS, ON OUR SHIFT PRIOR TO 0. THEN PT C/O MIDEPIGASTRIC/CHEST PAIN. EKG COMPLETED. TYLENOL EFFECTIVE FOR PAIN. ENCOURAGED PT MULTIPLE TIMES TO SLOW DOWN ON THE PO INTAKE- PT CONTINUED TO C/O OF HEARTBURN THROUGHOUT SHIFT. DISCUSSED INDIGESTION R/T FOOD INTAKE WITH PT. PT STOPPED PO INTAKE FOR 4 HRS THEN STARTED C/O HEARTBURN AND STARTED REQUESTING MULTIPLE MILKS THIS AM. NO CHEST PAIN HAS BEEN REPORTED SINCE EKG EARLER. CALL LIGHT IN REACH. HOURLY ROUNDING FOR SAFETY.
[2018-08-21 05:35] LABS: ALBUMIN 2.5 g/dL (3.4-5.0); CALCIUM 7.4 mg/dL (8.5-10.1); CREATININE 2.2 mg/dL (0.6-1.3); POTASSIUM 4.4 mmol/L (3.5-5.1); TOTAL BILIRUBIN 0.6 mg/dL (<0.1-1.0); TOTAL PROTEIN 5.4 g/dL (6.4-8.2)
[2018-08-21 07:30] VITALS: BP 114/74
--- NOTE | 2018-08-21 10:25 | NUR ---
VSS, ASSUMED CARE IN THE AM, ASSESSMENT PERFOMRED AND CHARTED, FALL PRECAUTIONS IN PLACE AND CALL LIGHT IN REACH, PT IS A&O3-4, ON RA, UP WITH STAND BY AND CANE, PT IS TRACING SR ON THE MONITOR, PT HAS BEEN IN BED AND IS ALWAYS SLEEPING, HE DENIES ANY PAIN AT THIS TIME, HIG GOAL IS SAFETY, WILL FOLLOW WITH PLAN OF CARE,
--- NOTE | 2018-08-21 10:28 | NUR ---
Cardiac Rehab. Patient refuses education at this time since he has just vomitted. Heart Failure education material remain at bedside. Will attempt again tomorrow.
[2018-08-21 11:33] VITALS: BP 102/67
--- NOTE | 2018-08-21 15:32 | EKG ---
[place] [address] ELECTROCARDIOGRAM REPORT Name: JEFF GUZMAN Room: [address] ADM IN M.R.#: [id number] Admission: 08/19/18 Attend Phys: Wilder Zacarias MD Discharge: Date of : 61 Report #: [id number] THIS REPORT FOR: //name// [facility] Test Date: 2018-08-20 Test Time: 22:14:48 Pat Name: JEFF GUZMAN Department: Room: [address] Gender: M Elder Counselor: BRETT : 1965 Requested By: Vernon Berrios Order Number: [id number] Ciarra MD: Meliton Juarez Measurements Intervals [place] Rate: 74 P: 55 [place]: 172 QRS: -14 QRSD: 100 T: 142 QT: 425 QTc: 472 Interpretive Statements Sinus rhythm Atrial premature complex Probable left atrial enlargement LVH with secondary repolarization abnormality Compared to ECG 08/19/2018 14:20:38 no change Electronically Signed On 08-21-2018 15:32:22 CDT by Meliton Juarez [email or web address] <ELECTRONICALLY SIGNED> By: Meliton Juarez MD, [facility] 08/21/18 1532 2214 2214 Meliton Juarez MD, [facility] /EPI
[2018-08-21 16:03] VITALS: BP 109/79
--- NOTE | 2018-08-21 18:54 | NUR ---
VSS, PT IS PROGRESSING TOWARDS GOAL, PT WORKED WITH PT/OT AND WAS UP IN CHAIR FOR DINNER AND WALKED TO BATHRROM, PT IS TRACING SR ON THE MONITOR, ON RA AND DENIES AN PAIN, HOURLY ROUNDS COPLETED WILL FOLLOW WITH PLAN OF CARE.
[2018-08-21 20:00] VITALS: BP 99/67
[2018-08-22] VITALS: BP 103/70
[2018-08-22 04:00] VITALS: BP 134/75
[2018-08-22 04:55] LABS: ABSOLUTE EOSINOPHILS 0.1 thou/uL (0.0-0.7); ABSOLUTE LYMPHOCYTES 2.3 thou/uL (0.8-5.3); ABSOLUTE MONOCYTES 0.6 thou/uL (0.0-1.2); ABSOLUTE NEUTROPHILS 3.4 thou/uL (1.6-8.1); BASOPHILS 0.6 %; EOSINOPHILS 1.7 %; HEMOGLOBIN 12.4 gm/dL (14.0-18.0); LYMPHOCYTES 35.7 %; MCH 30.8 pg (26.0-34.0); MCHC 32.6 g/dL (28.0-37.0); MCV 94.6 fL (80.0-100.0); MONOCYTES 9.7 %; MPV 8.5 fl. (7.2-11.1); NUCLEATED RBCS 0 /100WBC; PLATELET COUNT* 270 thou/uL (150-400); POLYS 52.3 %; RBC 4.01 mil/uL (4.50-6.00); RDW-CV 16.4 % (10.5-14.5); WBC 6.5 thou/uL (4.0-11.0)
[2018-08-22 05:50] LABS: CALCIUM 8.3 mg/dL (8.5-10.1); CREATININE 1.9 mg/dL (0.6-1.3); MAGNESIUM 2.2 mg/dL (1.8-2.4); POTASSIUM 5.1 mmol/L (3.5-5.1); TROPONIN-I LEVEL 0.09 ng/mL (<0.06)
--- NOTE | 2018-08-22 07:20 | NUR ---
CHANGE OF SHIFT BEDSIDE GIVEN PATIENT SEEN AT BEDSIDE, IN BED ASLEEP ASSUMED PATIENT CARE
[2018-08-22 08:00] VITALS: BP 111/84
[2018-08-22 12:00] VITALS: BP 139/98
[2018-08-22 16:00] VITALS: BP 111/72
[2018-08-22 20:00] VITALS: BP 102/66
--- NOTE | 2018-08-23 01:57 | NUR ---
ASSUMED PT CARE @ 1930. NO PAIN, N/V, HEARTBURN OR DISCOMFORT REPORFTED OR OBSERVED. PT REPORTED HE WAS "TIRED" AMD JUST WANTED TO SLEEP. TRACING SR ON O2JORTY. CALL LIGHT IN REACH. HOURLY ROUNDING FOR SAFETY.
[2018-08-23 04:00] VITALS: BP 124/71
[2018-08-23 05:09] LABS: ABSOLUTE EOSINOPHILS 0.1 thou/uL (0.0-0.7); ABSOLUTE LYMPHOCYTES 1.8 thou/uL (0.8-5.3); ABSOLUTE MONOCYTES 0.6 thou/uL (0.0-1.2); ABSOLUTE NEUTROPHILS 4.1 thou/uL (1.6-8.1); BASOPHILS 0.5 %; EOSINOPHILS 1.5 %; HEMATOCRIT 37.6 % (42.0-52.0); HEMOGLOBIN 12.4 gm/dL (14.0-18.0); MCH 31.2 pg (26.0-34.0); MCHC 32.9 g/dL (28.0-37.0); MONOCYTES 9.5 %; MPV 8.6 fl. (7.2-11.1); NUCLEATED RBCS 0 /100WBC; PLATELET COUNT* 252 thou/uL (150-400); POLYS 61.5 %; RBC 3.96 mil/uL (4.50-6.00); RDW-CV 16.5 % (10.5-14.5); WBC 6.6 thou/uL (4.0-11.0)
[2018-08-23 05:34] LABS: ALBUMIN 2.7 g/dL (3.4-5.0); CALCIUM 7.9 mg/dL (8.5-10.1); CREATININE 1.9 mg/dL (0.6-1.3); MAGNESIUM 2.2 mg/dL (1.8-2.4); POTASSIUM 4.6 mmol/L (3.5-5.1); TOTAL BILIRUBIN 0.4 mg/dL (<0.1-1.0); TOTAL PROTEIN 5.7 g/dL (6.4-8.2)
--- NOTE | 2018-08-23 07:20 | NUR ---
CHANGE OF SHIFT BEDSIDE REPORT GIVEN PATIENT SEEN AT [facility], IN BED ASLEEP BED ALARM SET ASSUMED PATIENT CARE
[2018-08-23 08:00] VITALS: BP 122/85
--- NOTE | 2018-08-23 10:17 | NUR ---
Consult received regarding Pt lacking insurance, Pt does have insurance. Discussed with Pt that he may need to consider how he choses to spend his monies, CM informed that Pt will have scripts at [facility].
[2018-08-23 12:00] VITALS: BP 109/76
[2018-08-23] MEDS ORDERED: POTASSIUM20 PO ×2 (12:30→12:31)
[2018-08-23] MEDS ORDERED: COREG25 MG PO (12:30)
[2018-08-23] MEDS ORDERED: LIPITOR10 MG PO (12:30)
[2018-08-23] MEDS ORDERED: NEXIUM40 MG PO (12:30)
[2018-08-23] MEDS ORDERED: LISINOPRIL20 MG PO (12:30)
[2018-08-23] MEDS ORDERED: ZOFRAN ODT4 MG PO ×2 (12:30→12:31)
[2018-08-23] MEDS ORDERED: FLOMAX0.4 MG PO (12:30)
[2018-08-23] MEDS ORDERED: ADULT LOW DOSE81 MG PO (12:30)
[2018-08-23] MEDS ORDERED: LASIX 40 MG TAB40 M2 PO (12:30)
== END 2018-08-23 21:00 | disposition home health service (06) | DRG 917 ==
LOC: M.ERS 13:54 → M.TBA-ER 15:24 → M.2W 15:24
PROVIDERS: Emergency Medicine Emergency Medical Services; Family Medicine; ADMIT Internal Medicine
DX: T43.621A Poisoning by amphetamines, accidental (unintentional), initial encounter (principal); I21.4 Non-ST elevation (NSTEMI) myocardial infarction; I50.23 Acute on chronic systolic (congestive) heart failure; Z68.41 Body mass index [BMI] 40.0-44.9, adult; I42.9 Cardiomyopathy, unspecified; I13.0 Hypertensive heart and chronic kidney disease with heart failure and stage 1 through stage 4 chronic kidney disease, or unspecified chronic kidney disease; I47.2 Ventricular tachycardia; M19.90 Unspecified osteoarthritis, unspecified site; J44.9 Chronic obstructive pulmonary disease, unspecified; F17.210 Nicotine dependence, cigarettes, uncomplicated; K59.00 Constipation, unspecified; N18.3 Chronic kidney disease, stage 3 (moderate); E66.01 Morbid (severe) obesity due to excess calories; I25.2 Old myocardial infarction; Z91.14 Patient's other noncompliance with medication regimen; Z98.84 Bariatric surgery status; Z86.73 Personal history of transient ischemic attack (TIA), and cerebral infarction without residual deficits; Z79.82 Long term (current) use of aspirin; Z79.899 Other long term (current) drug therapy; Y92.89 Other specified places as the place of occurrence of the external cause

== ENCOUNTER 2018-10-17 17:45 | Emergency (ER) | payer OTHER ==
[~2018-10-17] VITALS: Ht 182.9 cm; Wt 128.8 kg
[~2018-10-17 17:45] MED LIST changes: +NEXIUM40 MG PO; +ZOFRAN ODT4 MG PO
[2018-10-17] MEDS ORDERED: CLEOCIN HCL300 MG PO (19:36)
[2018-10-17] MEDS ORDERED: NABUMETONE 750750 M1 PO (19:37)
[2018-10-17 19:43] VITALS: BP 140/95
== END 2018-10-17 19:44 | disposition home or self-care (01) ==
LOC: M.ERS 17:45
DX: L02.31 Cutaneous abscess of buttock (principal); I11.0 Hypertensive heart disease with heart failure; I50.9 Heart failure, unspecified; J44.9 Chronic obstructive pulmonary disease, unspecified; F17.210 Nicotine dependence, cigarettes, uncomplicated; Z86.73 Personal history of transient ischemic attack (TIA), and cerebral infarction without residual deficits; Z90.49 Acquired absence of other specified parts of digestive tract

== ENCOUNTER 2018-11-09 03:34 | Observation (INO) | payer OTHER ==
[~2018-11-09] VITALS: Ht 182.9 cm; Wt 127.5 kg
[~2018-11-09 03:34] MED LIST changes: +NABUMETONE 750750 M1 PO
[2018-11-09 03:35] VITALS: BP 145/110
[2018-11-09 04:23] LABS: ABSOLUTE EOSINOPHILS 0.2 thou/uL (0.0-0.7); ABSOLUTE LYMPHOCYTES 1.8 thou/uL (0.8-5.3); ABSOLUTE MONOCYTES 0.3 thou/uL (0.0-1.2); ABSOLUTE NEUTROPHILS 3.2 thou/uL (1.6-8.1); BASOPHILS 0.7 %; EOSINOPHILS 4.2 %; HEMATOCRIT 37.2 % (42.0-52.0); HEMOGLOBIN 12.3 gm/dL (14.0-18.0); LYMPHOCYTES 32.7 %; MCH 29.5 pg (26.0-34.0); MCV 89.4 fL (80.0-100.0); MONOCYTES 5.5 %; MPV 8.4 fl. (7.2-11.1); NUCLEATED RBCS 0 /100WBC; PLATELET COUNT* 236 thou/uL (150-400); POLYS 56.9 %; RBC 4.17 mil/uL (4.50-6.00); RDW-CV 16.4 % (10.5-14.5); WBC 5.6 thou/uL (4.0-11.0)
[2018-11-09 04:32] LABS: ANION GAP 9 mmol/L (7-16); BUN 19 mg/dL (7-18); CALCIUM 8.1 mg/dL (8.5-10.1); CHLORIDE 105 mmol/L (98-107); CO2 27 mmol/L (21-32); CREATININE 1.4 mg/dL (0.6-1.3); GLUCOSE 104 mg/dL (70-99); POTASSIUM 3.4 mmol/L (3.5-5.1); SODIUM 141 mmol/L (136-145)
[2018-11-09 04:35] LABS: INR 1.1; PROTIME 11.3 Seconds (9.20-11.50)
[2018-11-09 04:43] LABS: ALBUMIN 2.7 g/dL (3.4-5.0); ALKALINE PHOSPHATASE 81 U/L (46-116); LIPASE 52 U/L (73-393); NT-PRO BRAIN NAT PEPTIDE 9869 pg/mL (<300); SGOT 11 U/L (15-37); SGPT 13 U/L (30-65); TOTAL BILIRUBIN 2.1 mg/dL (<0.1-1.0); TOTAL PROTEIN 6.6 g/dL (6.4-8.2); TROPONIN-I LEVEL <0.06 ng/mL (<0.06)
[2018-11-09 05:41] LABS: URINE BILIRUBIN 1+ (Negative); URINE BLOOD TRACE (Negative); URINE CLARITY CLEAR; URINE COLOR YELLOW; URINE GLUCOSE-RANDOM NEGATIVE (Negative); URINE KETONES TRACE (Negative); URINE LEUKOCYTES-REFLEX NEGATIVE (Negative); URINE NITRITE-REFLEX NEGATIVE (Negative); URINE PROTEIN 2+ (Negative); URINE SPECIFIC GRAVITY >= 1.030 (1.005-1.030)
[2018-11-09 06:13] LABS: BACTERIA-REFLEX 1-9 Few /HPF (None Seen); CASTS None Seen /LPF (None Seen); MUCUS 4-6 Moderate strn/LPF (None Seen); SQUAMOUS 4-10 Moderate /LPF (0-3); URINE RBC 3-10 Few /HPF (0-2); URINE WBC-REFLEX 0-5 Rare /HPF (0-5)
[2018-11-09 06:14] LABS: CRYSTALS None Seen /LPF (None Seen)
[2018-11-09] MEDS ORDERED: KEFLEX500 M1 PO (06:41)
[2018-11-09 08:00] VITALS: BP 159/112
[2018-11-09 13:01] VITALS: BP 119/94
[2018-11-09 16:51] VITALS: BP 111/69
[2018-11-09 20:00] VITALS: BP 135/84
[2018-11-10] VITALS: BP 149/102
[2018-11-10 04:00] VITALS: BP 183/127
--- NOTE | 2018-11-10 07:52 | CON ---
[facility] [address] [place] [address] CONSULTATION Name: JEFF GUZMAN Room: [address] IN M.R.#: [id number] Admission: 11/09/18 Attend Phys: Ghulam Jean-Baptiste Discharge: Date of : 61 Report #: [id number] THIS REPORT FOR: //name// CC: Dmitri Fuentes CARDIOLOGY CONSULTATION HISTORY OF PRESENT ILLNESS: I was asked by Dr. Fuentes to see this 53-year-old -Gambian male in cardiology consultation for evaluation and treatment of congestive heart failure. This man has known congestive heart failure. Apparently, he has cardiomyopathy, I am not sure exactly what type. He was here approximately 3 months ago with heart failure. He tells me he has not been taking his medication for 2-3 months. He is on a fairly aggressive medical regimen for heart failure. He has been increasingly short of breath he says for the last year, but certainly for the last week. He presented to the Emergency Room in the early a.m. hours with shortness of breath that worsened about 2 hours before coming in. He said his shortness of breath onset was yesterday. Other problems include hypertension, back surgery, laparoscopic band surgery, DJD, hypokalemia that is apparently chronic. He believes his potassium was 3.4 when he came in this time. He has had left leg surgery. He has had a cerebrovascular accident x 2. He has chronic obstructive pulmonary disease. He has a history of acute renal failure and a non-ST segment elevation myocardial infarction. Presumably, his cardiomyopathy is ischemic. MEDICATIONS: His past medical history includes just medications including nabumetone 150 mg b.i.d. p.r.n., Nexium 40 mg daily, tamsulosin 0.4 mg daily, atorvastatin 10 mg daily for hyperlipidemia, carvedilol 25 mg b.i.d., lisinopril 20 mg daily, furosemide 80 mg daily, p.r.n. Zofran and potassium 20 mEq daily. ALLERGIES: He has no known allergies. FAMILY HISTORY: Unremarkable. SOCIAL HISTORY: He does smoke cigarettes. He was told in no uncertain terms that he stop smoking. Denies alcohol or recreational drugs. REVIEW OF SYSTEMS: Other than being positive for shortness of breath was unremarkable. Systems reviewed include central nervous system, general, respiratory, cardiovascular, endocrine, gastrointestinal, genitourinary, hematologic, lymphatic, allergic, immunologic, psychiatric, musculoskeletal, skin, eyes, ears, nose, mouth, and throat. Please see review of systems form for details and negatives. He had approximately 40 negatives in his review of systems. PHYSICAL EXAMINATION: GENERAL: He presents as a well-developed, well-nour[place], [place] [address] CONSULTATION Name: JEFF GUZMAN Room: [address]#: [id number] Admission: 11/09/18 Attend Phys: Ghulam Jean-Baptiste Discharge: Date of : 61 Report #: [id number] -Gambian male in no acute distress. He is lying almost flat in bed, does not appear particularly dyspneic. VITAL SIGNS: Pulse was 74 and regular, pulse ox O2 sat was 97, blood pressure was 145/110, temperature was 36.7, and respirations were 18 and regular. HEENT: His head was atraumatic. Eyes clear. NECK: Supple. There is no jugular venous distention or hepatojugular reflux. Thyroid is not enlarged. There is no adenopathy. SKIN: Warm and dry. Mucous membranes are moist. LUNGS: Reveal decreased breath sounds diffusely, especially in the bases. There is an increased expiratory phase. HEART: Revealed distant first and second heart sounds. There was no S4, no S3, no murmurs, rubs, thrills, heaves or gallops. PMI is nondisplaced. The rhythm is regular and rate was approximately 70. ABDOMEN: Obese, soft and nontender. There are no palpable masses and no organomegaly. EXTREMITIES: Reveal no cyanosis, clubbing or edema. LABORATORY DATA: His chest x-ray revealed cardiomegaly with increased interstitial and airspace opacity suspicious for pulmonary edema and there were probable small bilateral pleural effusions. A BNP was 9869. Potassium is 3.4. IMPRESSION: 1. Congestive heart failure, acute on chronic systolic and probably diastolic heart failure. 2. Hypertension. 3. Obesity. 4. Chronic obstructive pulmonary disease. 5. Status post cerebrovascular accident x 2. 6. History of non-ST segment elevation myocardial infarction. 7. Coronary artery disease. 8. Hypokalemia. 9. Medical noncompliance. RECOMMENDATIONS: I would get him back on his medicines for heart failure and diurese him. Please see my orders. He should have another echo as well. Thank you very much for asking me to see the patient. If there are any questions, please feel free to contact me. <ELECTRONICALLY SIGNED> By: Myrna Howe MD, [facility] 11/10/18 0752 1453 2221F. George Howe MD, FACC /nt
--- NOTE | 2018-11-10 08:03 | NUR ---
ASSUMED PT CARE @ 1930. PT WAS VERY IRRITABLE/AGITATED THROUGHOUT SHIFT. PT KEPT C/O NOISE THROUGHOUT SHIFT (NEXT TO SUPPLY ROOM). OFFERED PT TO MOVE TO ROOM AT THE END OF THE HALLWAY "WHERE IT WOULD BE MORE QUIET." PT REFUSED STATING, "IF I'M GOING TO MOVE IT'S GOING TO BE TO LEAVE." PT REFUSED AM LAB DRAW. AGREED TO LAB DRAW WHEN AM PHLEOBOTOMIST WAS HERE. PT COMPLIANT BUT UNABLE TO OBTAIN BLOOD/POOR ACCESS. CALL LIGHT IN REACH. HOURLY ROUNDING FOR SAFETY.
[2018-11-10] MEDS ORDERED: LISINOPRIL20 MG PO (09:03)
[2018-11-10] MEDS ORDERED: ASA81BEC PO (09:03)
[2018-11-10] MEDS ORDERED: COREG25 MG PO (09:03)
[2018-11-10] MEDS ORDERED: SPIRONOLACTONE25 MG PO (09:03)
[2018-11-10] MEDS ORDERED: LASIX 40 MG TAB40 M2 PO (09:03)
[2018-11-10 11:34] LABS: ICTOTEST (BILI CONFIRMATORY) Negative (Negative)
--- NOTE | 2018-11-10 11:55 | NUR ---
ASSUMED CARE OF PATIENT THIS AM AT 0730. PATIENT IS UNCOOPERATIVE AND REFUSING MEDICATIONS. HE IS ANGRY ABOUT FLUID RESTRICTION. PATIENT REQESTING TO GO HOME. DR IN TO ROUND AND DISCHARGE ORDERS WRITTEN. PATIENT REFUSING TO WEAR TELE MONITOR.
--- NOTE | 2018-11-11 13:46 | EKG ---
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 Specialist: MR : 1965 Requested By: Meredith Hart Order Number: [id number] MD: Meliton Juarez Measurements Intervals [place] Rate: 79 P: 16 OR: 182 QRS: -29 QRSD: 108 T: 119 QT: 463 QTc: 531 Interpretive Statements Sinus arrhythmia Probable left atrial enlargement Abnormal R-wave progression, late transition LVH with secondary repolarization abnormality Prolonged QT interval Compared to ECG 08/20/2018 22:14:48 Prolonged QT interval now present Sinus rhythm no longer present Electronically Signed On 11-11-2018 13:46:00 CDT by Meliton Juarez [email or web address] <ELECTRONICALLY SIGNED> By: Meliton Juarez MD, FAC 11/11/18 1346 0357 0357 Meliton Juarez MD, FAC /EPI
== END 2018-11-10 16:28 | disposition home or self-care (01) ==
LOC: M.ERS 03:34 → M.2W 05:07 → M.TBA-ER 05:07 → M.2W 05:07
PROVIDERS: Emergency Medicine; ADMIT Internal Medicine
DX: R07.89 Other chest pain (principal); I13.0 Hypertensive heart and chronic kidney disease with heart failure and stage 1 through stage 4 chronic kidney disease, or unspecified chronic kidney disease; N18.3 Chronic kidney disease, stage 3 (moderate); I50.33 Acute on chronic diastolic (congestive) heart failure; E87.6 Hypokalemia; E66.9 Obesity, unspecified; J44.9 Chronic obstructive pulmonary disease, unspecified; I25.10 Atherosclerotic heart disease of native coronary artery without angina pectoris; I25.2 Old myocardial infarction; F17.210 Nicotine dependence, cigarettes, uncomplicated; Z98.890 Other specified postprocedural states; Z86.73 Personal history of transient ischemic attack (TIA), and cerebral infarction without residual deficits; Z79.899 Other long term (current) drug therapy; Z79.82 Long term (current) use of aspirin

== ENCOUNTER 2018-12-19 05:06 | Inpatient (IN) | payer OTHER ==
[~2018-12-19] VITALS: Ht 182.9 cm; Wt 125.6 kg
[~2018-12-19 05:06] MED LIST changes: +ASA81BEC PO; +KEFLEX500 M1 PO; +SPIRONOLACTONE25 MG PO
[2018-12-19 05:07] VITALS: BP 141/105
[2018-12-19] MEDS ORDERED: COZAAR 25 MG TA25 M1 PO (05:19)
[2018-12-19 05:31] LABS: ABSOLUTE EOSINOPHILS 0.2 thou/uL (0.0-0.7); ABSOLUTE LYMPHOCYTES 1.7 thou/uL (0.8-5.3); ABSOLUTE MONOCYTES 0.3 thou/uL (0.0-1.2); ABSOLUTE NEUTROPHILS 3.3 thou/uL (1.6-8.1); BASOPHILS 0.7 %; EOSINOPHILS 2.9 %; HEMATOCRIT 35.9 % (42.0-52.0); HEMOGLOBIN 11.8 gm/dL (14.0-18.0); LYMPHOCYTES 30.7 %; MCH 30.1 pg (26.0-34.0); MCV 91.2 fL (80.0-100.0); MONOCYTES 5.6 %; MPV 8.3 fl. (7.2-11.1); NUCLEATED RBCS 0 /100WBC; PLATELET COUNT* 249 thou/uL (150-400); POLYS 60.1 %; RBC 3.94 mil/uL (4.50-6.00); RDW-CV 18.4 % (10.5-14.5); WBC 5.5 thou/uL (4.0-11.0)
[2018-12-19 05:48] LABS: URINE BILIRUBIN NEGATIVE (Negative); URINE BLOOD TRACE (Negative); URINE CLARITY CLEAR; URINE COLOR YELLOW; URINE GLUCOSE-RANDOM NEGATIVE (Negative); URINE KETONES NEGATIVE (Negative); URINE LEUKOCYTES-REFLEX NEGATIVE (Negative); URINE NITRITE-REFLEX NEGATIVE (Negative); URINE PROTEIN 1+ (Negative); URINE SPECIFIC GRAVITY 1.015 (1.005-1.030); URINE UROBILINOGEN 0.2 E.U./dl (0.2-1.0)
[2018-12-19 05:58] LABS: ALBUMIN 2.9 g/dL (3.4-5.0); CALCIUM 7.9 mg/dL (8.5-10.1); POTASSIUM 3.3 mmol/L (3.5-5.1); TOTAL BILIRUBIN 1.4 mg/dL (<0.1-1.0); TOTAL PROTEIN 6.6 g/dL (6.4-8.2); TROPONIN-I LEVEL 0.06 ng/mL (<0.06)
[2018-12-19 06:03] LABS: CREATININE 1.3 mg/dL (0.6-1.3)
--- NOTE | 2018-12-19 07:30 | NUR ---
THIS NURSE CALLED FOR A BREAKFAST TRAY.
--- NOTE | 2018-12-19 08:40 | NUR ---
PT IS EXTREMELY UPSET THAT HE DOES NOT HAVE A TRAY YET. DIETARY WAS CALLED AND STATED THAT "HE NOW HAS ORDERS FOR NPO SO THEY DID NOT MAKE A TRAY". THIS NURSE TRIED TO EXPLAIN THIS TO THE PATIENT AND HE STATED THAT HE "WANTED TO TALK WITH ADMINISTRATION."
--- NOTE | 2018-12-19 08:50 | NUR ---
NYASIA BUSH AT BEDSIDE TALKING WITH PATIENT AT THIS TIME.
--- NOTE | 2018-12-19 09:30 | NUR ---
DR. NAIDU AT BEDSIDE WITH PATIENT.
--- NOTE | 2018-12-19 10:11 | NUR ---
PT'S MEDICATIONS COLLECTED AND PLACED IN A "PATIENT'S MEDICINE INVENTORY SECURITY BAG" AND TAKEN TO PHARMACY. PATIENT'S BELONG BAG IS #[phone].
[2018-12-19 10:28] VITALS: BP 115/92
[2018-12-19 10:30] VITALS: BP 135/103
--- NOTE | 2018-12-19 11:17 | NUR ---
RECEIVIED REPORT FROM AB RN IN ER OF EXPECTED ADMISSION AT 0946- DX; CHEST PAIN/ABD PAIN- PT ARRIVED TO UNIT VIA CART AT 1040, SBA TO BED- BOX COVERER HAND PLACED ORDERED, TRACING SR WITH BBB- PT A&O X4, SLOW WITH RESPONSES- CONTINENT OF B/B- SBA WITH TRANSFERS- LCTA, DYSPNEA NOTED ON EXERTION- VS 97.8 16 135/103 72 95% ON 2L VIA NC- ABD SOFT/ROUND/NON-TENDER, BS X4 QUADS- LAST BM REPORTED X2 DAYS AGO- IV NOTED TO RIGHT AC INTACT AND SL, IV SOLU-MED GIVEN PRESCIBED- PT CURRENTLY NPO PENDING CARDIO CONSULT- WHILE ATTEMPTING TO RECONNCILE MEDS, PT STATES "WHATEVER YOU HAVE ON THE COMPUTER IS WHAT I TAKE"- SKIN C/D/I- PT RATES GENERALIZED PAIN 12/04- CALL LIGHT AND PERSONAL BELONGINGS WITH IN REACH-PT MAKES NEEDS KNOWN- ALL NEEDS MET AT THIS TIME-WCTM
[2018-12-19 11:49] VITALS: BP 127/99
[2018-12-19 15:58] VITALS: BP 119/86
--- NOTE | 2018-12-19 16:22 | NUR ---
PT CURRENTLY RESTING IN BED, WATCHING TV- PLASTICS TECHNICIAN IN PLACE ORDERED, TRACING SR/BBB- CARDIOLOGY HERE TO ASSESS WITH ECHO ORDERED, COREG 6.25MG BID, AND 80MG IV LASIX- ECHO COMPLETED WITH PENDING RESULTS- GOOD PO INTAKE NOTED THIS SHIFT- IV NOTED TO RIGHT AC INTACT AND SL- PT MAKES NEEDS KNOWN- ALL NEEDS MET AT THIS TIME-WCTM
--- NOTE | 2018-12-19 16:36 | EKG ---
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: 00 : 1965 Requested By: Willy Moran Order Number: [id number] MD: Jorge Luis Valencia Measurements Intervals [place] Rate: 69 P: 35 NE: 210 QRS: -24 QRSD: 110 T: 100 QT: 453 QTc: 486 Interpretive Statements Sinus rhythm Prolonged NE interval LVH with secondary repolarization abnormality Borderline prolonged QT interval Baseline wander in lead(s) V1,V2 Compared to ECG 11/09/2018 03:57:06 First degree AV block now present Sinus arrhythmia no longer present Electronically Signed On 12-19-2018 16:36:00 CDT by Jorge Luis Valencia [email or web address] <ELECTRONICALLY SIGNED> By: Jorge Luis Valencia MD, FACC 12/19/18 1636 1 1 Jorge Luis Valencia MD, FAC /EPI
--- NOTE | 2018-12-19 16:45 | 2DMMODE ---
[place] [address] 2 D/M-MODE ECHOCARDIOGRAM Name: JEFF GUZMAN Room: [address] IN [facility]#: [id number] Admission: 12/19/18 Attend Phys: Elayne Gregorio, Discharge: Date of : 61 Date of Service: 12/19/18 1644 Report #: [id number] THIS REPORT FOR: //name// APPROVED REPORT Study performed: 12/19/2018 15:59:48 EXAM: Comprehensive 2D, Doppler, and color-flow Echocardiogram Patient Location: In-Patient Room #: [facility] Status: routine BSA: 2.45 HR: 64 bpm BP: 119/86 mmHg Rhythm: NSR Other Information Study Quality: Good Indications Dyspnea 2D Dimensions IVSd: 17.23 (7-11mm) LVOT Diam: 21.73 (18-24mm) LVDd: 64.67 mm PWd: 16.83 (7-11mm) Ascending Ao: 42.77 (22-36mm) LVDs: 53.83 (25-40mm) Aortic Root: 37.89 mm Volumes Left Atrial Volume (Systole) LA ESV Index: 77.10 mL/m2 Aortic Valve AoV Peak Aleksey.: 1.26 m/s AO Peak Gr.: 6.31 mmHg LVOT Max P.67 mmHg AO Mean Gr.: 3.82 mmHg LVOT Mean P.80 mmHg LVOT Max V: 0.96 m/s AO V2 VTI: 19.82 cm LVOT Mean V: 0.61 m/s VINCE (VTI): 3.11 cm2 LVOT V1 VTI: 16.63 cm Mitral Valve MV Decel. Time: 120.82 ms MV PHT: 35.04 ms MVA (PHT): 6.28 [place]2 [place] [address] 2 D/M-MODE ECHOCARDIOGRAM Name: JEFF GUZMAN Room: [address] IN [facility].#: [id number] Admission: 12/19/18 Attend Phys: Elayne Gregorio, Discharge: Date of : 61 Date of Service: 12/19/18 1644 Report #: [id number] TDI Medial E' Aleksey.: 0.06 m/s Lateral E' Aleksey.: 0.14 m/s Pulmonary Valve PV Peak Aleksey.: 0.84 m/s PV Peak Gr.: 2.82 mmHg Tricuspid Valve RAP Estimate: 5.00 mmHg TR Peak Gr.: 31.46 mmHg RVSP: 36.00 mmHg PA Pressure: 36.00 mmHg Left Ventricle Left ventricle is moderately dilated. There is severe global hypokinesis of the left ventricle. Moderate concentric left ventricular hypertrophy. Left ventricular systolic function is severely decreased. LVEF is 30-35%. Grade IV - fixed restrictive diastolic dysfunction. Right Ventricle Right ventricle is mildly dilated. The right ventricular systolic function is normal. Atria Left atrium is severely dilated. Right atrium is moderately dilated. Aortic Valve The aortic valve is normal in structure. Trace aortic regurgitation. There is no aortic valvular stenosis. Mitral Valve The mitral valve is normal in structure. Mild mitral regurgitation. No evidence of mitral valve stenosis. Tricuspid Valve The tricuspid valve is normal in structure. Mild tricuspid regurgitation. Mild pulmonary hypertension. Pulmonic Valve The pulmonary valve is normal in structure. Trace pulmonic regurgitation. Great Vessels The aortic root is normal in size. The ascending [place] [address] 2 D/M-MODE ECHOCARDIOGRAM Name: JEFF GUZMAN Room: [address] IN [facility]#: [id number] Admission: 12/19/18 Attend Phys: Elayne Gregorio, Discharge: Date of : 61 Date of Service: 12/19/18 1644 Report #: [id number] dilated. IVC is normal in size and collapses >50% with inspiration. Pericardium There is no pericardial effusion. <Conclusion> Left ventricle is moderately dilated. Moderate concentric left ventricular hypertrophy. Left ventricular systolic function is severely decreased. LVEF is 30-35%. There is severe global hypokinesis of the left ventricle. Grade IV - fixed restrictive diastolic dysfunction. Left atrium is severely dilated. Right atrium is moderately dilated. Right ventricle is mildly dilated. Trace aortic regurgitation. Mild mitral regurgitation. Mild tricuspid regurgitation. Mild pulmonary hypertension. IVC is normal in size and collapses >50% with inspiration. The ascending aorta is moderately dilated. <ELECTRONICALLY SIGNED> By: Jorge Luis Valencia MD, FACC 12/19/18 1644 164 164 Jorg eLuis Valencia MD, FACC /INF
[2018-12-19 20:23] VITALS: BP 144/87
[2018-12-20] VITALS (7 sets, daily range): BP systolic 119–131; BP diastolic 83–95
[2018-12-20 05:16] LABS: CALCIUM 8.2 mg/dL (8.5-10.1); CREATININE 1.6 mg/dL (0.6-1.3); MAGNESIUM 1.7 mg/dL (1.8-2.4); POTASSIUM 3.8 mmol/L (3.5-5.1)
--- NOTE | 2018-12-20 05:54 | NUR ---
PT IS ABLE TO COMMUNICATE HIS NEEDS TO STAFF EFFECTIVELY. CURRENT PAIN MEDICATION REGIMEN HAS BEEN ADEQUATE FOR CONTROLLING HIS PAIN UP TO THIS TIME. PT HAS DENIED ANY REOCCURANCE OF CHEST PAIN UP TO THIS TIME.
--- NOTE | 2018-12-20 08:18 | CON ---
[address] [address] CONSULTATION Name: JEFF GUZMAN KATHY Room: [address] IN M.R.#: [id number] Admission: 12/19/18 Attend Phys: Elayne Gregorio MD Discharge: Date of : 61 Report #: [id number] THIS REPORT FOR: //name// CC: Dmitri Gregorio INDICATION: Shortness of breath and chest pain. HISTORY OF PRESENT ILLNESS: The patient is a well-known patient to us. He has had multiple admissions to the hospital due to congestive heart failure. He has medical noncompliance. He has combined systolic and diastolic heart failure with frequent acute exacerbations when he runs out of his medication. He presented to the Emergency Room with complaints of chest discomfort. His initial EKG shows LVH with repolarization abnormalities, which is unchanged from his prior EKGs. Cardiac enzymes thus far unremarkable. NT-proBNP was elevated consistent with heart failure. Chest x-ray shows cardiomegaly without overt pulmonary vascular congestion. PAST MEDICAL HISTORY: 1. Chronic systolic and diastolic heart failure. 2. Hypertension. 3. Prior back surgery x 2. 4. Knee surgery. 5. Lap-band procedure. HOME MEDICATIONS: Albuterol 2 puffs q. 6 hours p.r.n., aspirin 81 mg daily, atorvastatin 10 mg at bedtime, carvedilol 25 mg b.i.d., Nexium 40 mg daily, furosemide 80 mg daily, Zestril 20 mg daily, losartan 100 mg daily, Relafen 750 mg b.i.d., Zofran 4 mg q. 8 hours p.r.n., potassium chloride 20 mEq daily, spironolactone 50 mg daily, Flomax 0.4 mg daily. FAMILY HISTORY: Noncontributory. SOCIAL HISTORY: The patient smokes cigarettes occasionally. There is history of polysubstance abuse. PHYSICAL EXAMINATION: VITAL SIGNS: Blood pressure currently 127/99, pulse 64 and regular. GENERAL: This is a middle-aged gentleman in no distress. HEENT: Extraocular muscles intact. Mucous membranes are moist. NECK: Shows no obvious jugular venous distention. There are no carotid bruits. CHEST: Reveals clear lung reid. CARDIOVASCULAR: Reveals a regular rhythm without gallop or murmur. ABDOMEN: Reveals normal bowel sounds. EXTREMITIES: Shows trace to 1+ edema to the knees bilaterally. SKIN: Somewhat thickened from chronic [place] [address] CONSULTATION Name: JEFF GUZMAN Room: [address]#: [id number] Admission: 12/19/18 Attend Phys: Elayne Gregorio MD Discharge: Date of : 61 Report #: [id number] Chest x-ray shows possible mild vascular congestion and cardiomegaly. LABORATORY DATA: Labs reviewed. Potassium was slightly low at 3.3. Troponin less than 0.06. NT-proBNP 10,607. IMPRESSION AND RECOMMENDATIONS: 1. Acute on chronic combined heart failure. We will diurese with IV Lasix at this time. Resuming antihypertensive medications for better blood pressure control. Continue with combination of losartan and carvedilol at this time. 2. Hypertension, poorly controlled due to noncompliance. We will stress compliance with the patient upon discharge as has been done before. 3. Tobacco use. Smoking cessation discussed and advised. 4. Hypertensive heart disease. Treat underlying cause of hypertension. 5. Chest pain, atypical. The patient has ruled out for myocardial infarction. I do not believe this represents acute coronary syndrome. We will follow clinically. <ELECTRONICALLY SIGNED> By: Jorge Luis Valencia MD, FACC 12/20/18 0818 1556 [id number] Luis Valencia MD, FACC /nt
--- NOTE | 2018-12-20 08:46 | NUR ---
INITAL ASSESSMENT COMPLETED CHARTED. VSS. TRACONG SR WITH 1ST DEGREE ON MONITOR. PT ANAMIKA PAIN, SOA. PT IS ALERT & ORIENTED AND ABLE TO VOICE ALL NEEDS. HOURLY ROUNDING IN PLACE FOR PT SAFETY. CLWR.
--- NOTE | 2018-12-20 11:43 | NUR ---
MET WITH PT TO DISCUSS HOME SITUATION/DC PLANNING. PT KNOWN TO CM FROM PREVIOUS HOSPITAL STAYS. HAS HX OF STROKE AND SOME EXP APHASIS. PT LIVES IN HOUSE HIS EX OWNS IN WITH [address] NI[address]ITHER OF THEM DRIVE. PT RECENTLY BOUGHT A CAR AND PER EX/DANNA, HE SPENT 'ALL HIS MONEY ON IT AND NOT HIS MEDICINE.' PT REPORTS TAKING HIS MEDS BUT NOT ALWAYS PRESCRIBED. DID BRING IN SOME BOTTLES, CONFIRMED THEY ARE IN THE PHARMACY. HE REPORTS HE WON'T BE ABLE TO GET ANY FILLED UNTIL HE GETS PAID ON 12/28. PT'S BROTHER IN [place] HAS OFFERED TO ASSIST WITH MEDS PER DANNA BUT THERE HAS BEEN AN ISSUE WITH [facility] AND THEM TAKING THE BROTHERS CARD INFO OVER THE PHONE. SUGGESTED TO DANNA CONTACTING [facility] RE: MAIL ORDER TO AVOID SOME OF THAT ISSUE. PT IS FAIRLY INDEPENDENT WITH HIS ADLS. USES CANE AND NEBULIZER. HASN'T HAD HH IN PAST. DISCUSSED HH AND PALLIATIVE CARE WITH PT, HE IS OPEN TO SOME ASSIST AND TO BOTH, DID NOT HAVE PREFERENCE. CALLED AND FAXED REFERAL TO [facility], THEY WILL COME OUT TO SEE PT TODAY. CALLED AND FAXED INITIAL REF TO [facility] ALSO. EX/DANNA ASKED ABOUT HAVING PSYCH SEE PT RE: ANXIETY TO SEE IF MEDS WOULD BE POSSIBLE. DID STRESS THAT PT NEEDS TO F/U WITH HIS PCP AND WOULD NEED TO BE COMPLAINT WITH PSYCH RECOMMENDATIONS. DISCUSSED WITH DR NAIDU. CM NOT ABLE TO ASSIST WITH MEDS PT IS INSURED AND HAS BENEFITS. ORDERS WILL NEED CALLED AND FAXED TO [facility] AT [place]. PT MAY NEED CAB VOUCHER AT [place]. [facility] [phone] FAX [phone] [facility] [phone] FAX [phone]
[2018-12-21] VITALS: BP 117/77
[2018-12-21 04:00] VITALS: BP 131/89
--- NOTE | 2018-12-21 05:31 | NUR ---
PT IS ABLE TO COMMUNICATE HIS NEEDS TO STAFF EFFECTIVELY. CURRENT PAIN MEDICATION REGIMEN HAS BEEN ADEQUATE FOR CONTROLLING HIS PAIN UP TO THIS TIME. NIGHTTIME PULSE OXIMETRY TESTING IN PROGRESS. POSSBLE DISCHARGE TODAY.
[2018-12-21 07:30] VITALS: BP 134/88
[2018-12-21 12:00] VITALS: BP 120/87
[2018-12-21 13:17] LABS: CALCIUM 8.3 mg/dL (8.5-10.1); CREATININE 1.9 mg/dL (0.6-1.3); MAGNESIUM 1.6 mg/dL (1.8-2.4); POTASSIUM 4.4 mmol/L (3.5-5.1)
[2018-12-21 16:00] VITALS: BP 116/87
--- NOTE | 2018-12-21 18:05 | NUR ---
VSS, ASSUMED CARE THE AM, ASSESSMENT PERFORMED AND CHARTED, FALL PRECAUTIONS IN PLACE AND CALL LIGHT IN [facility], PT IS A&O4 AND SR ON THE MONITOR, PT ELVIRA ANY PAIN, PT IS UP STAND BY AND IS ON RA, PT GOAL IS TO SIT UP IN CHAIR, HE WILL D/C TO HOME WITH HOME HEALTH NIHARIKA, HOURLY ROUNDS COMPLETED AND WILL FOLLOW WITH PLAN OF CARE,
[2018-12-21 20:40] VITALS: BP 132/93
[2018-12-22] VITALS: BP 121/73
[2018-12-22 04:00] VITALS: BP 129/87
--- NOTE | 2018-12-22 06:26 | NUR ---
PT SLEPT ON AND OFF THIS SHIFT. ASSESSMENT DOCUMENTED. MEDS GIVEN PER E-JUL. IV PATENT. TELE MONITOR READING SR. NO REPORTS OF PAIN THIS SHIFT. WILL CONTINUE WITH PLAN OF CARE.
[2018-12-22] MEDS ORDERED: AZITHROMYCIN 2250 MG PO (10:19)
[2018-12-22] MEDS ORDERED: PREDNISONE 20 M20 MG PO (10:19)
[2018-12-22] MEDS ORDERED: CARVEDILOL12.5 MG PO (10:19)
[2018-12-22] MEDS ORDERED: MAGNESIUM400 MG PO (10:21)
[2018-12-22 11:47] VITALS: BP 140/97
--- NOTE | 2018-12-22 14:58 | NUR ---
VSS, ASSUMED CARE OF PT IN THE AM, ASSESSMENT PERFORMED AND CHARTED, FALL PRECAUTIONS IN PLACE AND CALL LIGHT IN REACH, PT IS A&O4 AND UP WITH STAND BY AND CANE, PT IS ON RA, AND IS TRACING SR ON THE MONITOR, PT DENIES FLORES PAIN, AT THIS TIME I HAVE FILLED OUT D/C ORDERS, AND PROVITED D/C PAPERS WITH INSTRUCTIONS FOR HOME HEALTH AND DISCHARGE INFO, PT IV AND TELE MONITOR WAS TAKEN OUT/ OFF, PT WAS TAKEN OUT TO [facility] VIA WHEELCHAIR BY STAFF, SCRIPTS AND MEDICATION SHEETS PROVITED,
--- NOTE | 2018-12-23 16:52 | EKG ---
[place] [address] ELECTROCARDIOGRAM REPORT Name: JEFF GUZMAN Room: [address] DIS IN M.R.#: [id number] Admission: 12/19/18 Attend Phys: Elayne Gregorio MD Discharge: 12/22/18 Date of : 61 Report #: [id number] THIS REPORT FOR: //name// [facility] Test Date: 2018-12-21 Test Time: 08:19:49 Pat Name: JEFF GUZMAN Department: Room: [address] Gender: M Ui Ux Developer: : 1965 Requested By: Vernon Berrios Order Number: [id number] Ciarra MD: Jorge Luis Valencia Measurements Intervals [place] Rate: 68 P: 41 KS: 189 QRS: -22 QRSD: 106 T: 122 QT: 429 QTc: 457 Interpretive Statements Sinus rhythm Probable left atrial enlargement LVH with secondary repolarization abnormality Baseline wander in lead(s) V1,V2 Compared to ECG 12/19/2018 05:12:49 First degree AV block no longer present Electronically Signed On 12-23-2018 16:52:06 CDT by Jorge Luis Valencia [email or web address] <ELECTRONICALLY SIGNED> By: Jorge Luis Valencia MD, FACC 12/23/18 1652 0819 0819 Jorge Luis Valencia MD, [facility] /EPI
== END 2018-12-22 14:27 | disposition home health service (06) | DRG 177 ==
LOC: M.ERS 05:06 → M.TBA-ER 06:31 → M.2W 06:31
PROVIDERS: Emergency Medicine Emergency Medical Services; Internal Medicine; ADMIT Internal Medicine
PROC: B54MZZA Ultrasonography of Right Upper Extremity Veins, Guidance (ICD-10-PCS; principal; 2018-12-20)
PROC: 05HY33Z Insertion of Infusion Device into Upper Vein, Percutaneous Approach (ICD-10-PCS; principal; 2018-12-20)
DX: J15.6 Pneumonia due to other Gram-negative bacteria (principal); I50.43 Acute on chronic combined systolic (congestive) and diastolic (congestive) heart failure; J96.91 Respiratory failure, unspecified with hypoxia; J96.90 Respiratory failure, unspecified, unspecified whether with hypoxia or hypercapnia; J84.9 Interstitial pulmonary disease, unspecified; I25.110 Atherosclerotic heart disease of native coronary artery with unstable angina pectoris; I13.0 Hypertensive heart and chronic kidney disease with heart failure and stage 1 through stage 4 chronic kidney disease, or unspecified chronic kidney disease; J44.0 Chronic obstructive pulmonary disease with (acute) lower respiratory infection; G47.33 Obstructive sleep apnea (adult) (pediatric); N18.3 Chronic kidney disease, stage 3 (moderate); F15.90 Other stimulant use, unspecified, uncomplicated; G31.84 Mild cognitive impairment of uncertain or unknown etiology; E78.5 Hyperlipidemia, unspecified; J20.9 Acute bronchitis, unspecified; E66.9 Obesity, unspecified; F17.210 Nicotine dependence, cigarettes, uncomplicated; M19.90 Unspecified osteoarthritis, unspecified site; Z86.73 Personal history of transient ischemic attack (TIA), and cerebral infarction without residual deficits; I25.2 Old myocardial infarction; Z79.82 Long term (current) use of aspirin; Z79.899 Other long term (current) drug therapy; Z91.14 Patient's other noncompliance with medication regimen; Z71.6 Tobacco abuse counseling; Z68.37 Body mass index [BMI] 37.0-37.9, adult; Z98.84 Bariatric surgery status

== ENCOUNTER 2019-02-18 00:16 | Emergency (ER) | payer OTHER ==
[~2019-02-18] VITALS: Ht 182.9 cm; Wt 129.3 kg
[~2019-02-18 00:16] MED LIST changes: +AZITHROMYCIN 2250 MG PO; +CARVEDILOL12.5 MG PO; +MAGNESIUM400 MG PO; +PREDNISONE 20 M20 MG PO
[2019-02-18] MEDS ORDERED: ISORDIL10 MG PO (00:42)
[2019-02-18] MEDS ORDERED: HYDRALAZINE 2525 M1 PO (00:43)
[2019-02-18 01:19] LABS: ABSOLUTE EOSINOPHILS 0.2 thou/uL (0.0-0.7); ABSOLUTE LYMPHOCYTES 1.7 thou/uL (0.8-5.3); ABSOLUTE MONOCYTES 0.4 thou/uL (0.0-1.2); ABSOLUTE NEUTROPHILS 4.7 thou/uL (1.6-8.1); BASOPHILS 0.6 %; EOSINOPHILS 3.4 %; HEMATOCRIT 31.7 % (42.0-52.0); HEMOGLOBIN 10.8 gm/dL (14.0-18.0); LYMPHOCYTES 23.7 %; MCH 30.7 pg (26.0-34.0); MCHC 33.9 g/dL (28.0-37.0); MCV 90.4 fL (80.0-100.0); MONOCYTES 6.2 %; NUCLEATED RBCS 0 /100WBC; PLATELET COUNT* 277 thou/uL (150-400); POLYS 66.1 %; RBC 3.51 mil/uL (4.50-6.00); WBC 7.2 thou/uL (4.0-11.0)
[2019-02-18 01:28] LABS: APTT 27.4 Seconds (25.0-31.3); INR 1.2; PROTIME 11.8 Seconds (9.20-11.50)
[2019-02-18 01:34] LABS: ANION GAP 9 mmol/L (7-16); BUN 20 mg/dL (7-18); CALCIUM 8.1 mg/dL (8.5-10.1); CHLORIDE 106 mmol/L (98-107); CO2 28 mmol/L (21-32); CREATININE 1.5 mg/dL (0.6-1.3); GLUCOSE 104 mg/dL (70-99); POTASSIUM 3.1 mmol/L (3.5-5.1); SODIUM 143 mmol/L (136-145)
[2019-02-18 01:37] LABS: ALBUMIN 2.7 g/dL (3.4-5.0); ALKALINE PHOSPHATASE 77 U/L (46-116); NT-PRO BRAIN NAT PEPTIDE 6504 pg/mL (<300); SGOT 11 U/L (15-37); SGPT 16 U/L (30-65); TOTAL BILIRUBIN 1.2 mg/dL (<0.1-1.0); TROPONIN-I LEVEL <0.06 ng/mL (<0.06)
[2019-02-18] MEDS ORDERED: PREDNISONE 20 M20 M1 PO (01:48)
[2019-02-18 01:55] VITALS: BP 182/99
--- NOTE | 2019-02-18 16:54 | EKG ---
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: TARAN : 1965 Requested By: Aldo Bliss Order Number: [id number] MD: Jorge Luis Valencia Measurements Intervals [place] Rate: 102 P: 20 MS: 179 QRS: -35 QRSD: 112 T: 138 QT: 404 QTc: 527 Interpretive Statements Sinus tachycardia Atrial premature complex Left anterior fascicular block Delayed R-wave progression nonspecific T-wave abnormality Prolonged QT interval Compared to ECG 12/21/2018 08:19:49 Atrial premature complex(es) now present T-wave abnormality now present Prolonged QT interval now present Sinus rhythm no longer present Left ventricular hypertrophy no longer present Early repolarization no longer present Electronically Signed On 02-18-2019 16:54:05 CDT by Jorge Luis Valencia [email or web address] <ELECTRONICALLY SIGNED> By: Jorge Luis Valencia MD, FAC 02/18/19 1654 Jorge Luis Valencia MD, [facility] /EPI
== END 2019-02-18 02:07 | disposition home or self-care (01) ==
LOC: M.ERS 00:16
PROVIDERS: Family Medicine
DX: J44.1 Chronic obstructive pulmonary disease with (acute) exacerbation (principal); I13.0 Hypertensive heart and chronic kidney disease with heart failure and stage 1 through stage 4 chronic kidney disease, or unspecified chronic kidney disease; I50.9 Heart failure, unspecified; N18.3 Chronic kidney disease, stage 3 (moderate); I25.10 Atherosclerotic heart disease of native coronary artery without angina pectoris; I25.2 Old myocardial infarction; F17.210 Nicotine dependence, cigarettes, uncomplicated; Z98.890 Other specified postprocedural states; Z98.84 Bariatric surgery status; Z86.73 Personal history of transient ischemic attack (TIA), and cerebral infarction without residual deficits

== ENCOUNTER 2019-02-25 05:01 | Inpatient (IN) | payer OTHER ==
[~2019-02-25] VITALS: Ht 182.9 cm; Wt 130.6 kg
[~2019-02-25 05:01] MED LIST changes: +HYDRALAZINE 2525 M1 PO; +ISORDIL10 MG PO; +PREDNISONE 20 M20 M1 PO
[2019-02-25 05:13] VITALS: BP 198/174
[2019-02-25 05:38] LABS: ABSOLUTE EOSINOPHILS 0.1 thou/uL (0.0-0.7); ABSOLUTE LYMPHOCYTES 1.9 thou/uL (0.8-5.3); ABSOLUTE MONOCYTES 0.5 thou/uL (0.0-1.2); ABSOLUTE NEUTROPHILS 4.8 thou/uL (1.6-8.1); BASOPHILS 0.3 %; EOSINOPHILS 1.2 %; HEMATOCRIT 35.3 % (42.0-52.0); HEMOGLOBIN 11.6 gm/dL (14.0-18.0); LYMPHOCYTES 25.9 %; MCH 29.8 pg (26.0-34.0); MCV 90.6 fL (80.0-100.0); MONOCYTES 6.9 %; MPV 7.7 fl. (7.2-11.1); NUCLEATED RBCS 0 /100WBC; PLATELET COUNT* 322 thou/uL (150-400); POLYS 65.7 %; RDW-CV 17.3 % (10.5-14.5); WBC 7.4 thou/uL (4.0-11.0)
[2019-02-25 05:47] LABS: CALCIUM 8.1 mg/dL (8.5-10.1); CREATININE 1.5 mg/dL (0.6-1.3); POTASSIUM 3.2 mmol/L (3.5-5.1)
[2019-02-25 05:51] LABS: INR 1.3; PROTIME 12.8 Seconds (9.20-11.50)
[2019-02-25 05:58] LABS: ALBUMIN 2.9 g/dL (3.4-5.0); TOTAL BILIRUBIN 2.5 mg/dL (<0.1-1.0); TOTAL PROTEIN 6.3 g/dL (6.4-8.2); TROPONIN-I LEVEL 0.09 ng/mL (<0.06)
--- NOTE | 2019-02-25 06:02 | NUR ---
DR HOWELL ESTABLISHED IV ACCESS USING SONOGRAM RIGHT AC.
[2019-02-25 06:42] LABS: BE -0.6 mmol/L (-2 to +3); pH 7.421 (7.340-7.450)
[2019-02-25 06:48] LABS: URINE BILIRUBIN NEGATIVE (Negative); URINE BLOOD NEGATIVE (Negative); URINE CLARITY CLEAR; URINE COLOR YELLOW; URINE GLUCOSE-RANDOM NEGATIVE (Negative); URINE KETONES NEGATIVE (Negative); URINE LEUKOCYTES-REFLEX NEGATIVE (Negative); URINE NITRITE-REFLEX NEGATIVE (Negative); URINE PROTEIN 1+ (Negative); URINE UROBILINOGEN 0.2 E.U./dl (0.2-1.0)
--- NOTE | 2019-02-25 07:04 | NUR ---
THIS NURSE RECEIVED REPORT FROM ASHIA BROWER. THIS NURSE TO ASSUME PT CARE AT THIS TIME.
--- NOTE | 2019-02-25 07:27 | NUR ---
NURSE IN ROOM. BIPAP ALARMING. PT BOTTOM LIP FALLING OUT OF BIPAP MASK. RT CALLED AND NOTIFIED. STATED THEY WOULD BE DOWN TO ED IN 5-10 MINUTES TO FIX MASK.
--- NOTE | 2019-02-25 07:39 | NUR ---
RT AT BEDSIDE ADJUSTING BIPAP MASK.
--- NOTE | 2019-02-25 08:11 | NUR ---
REPORT GIVEN TO FLOOR NURSE. RT CALLED AT THIS TIME TO HELP TAKE PT TO FLOOR ROOM ON BIPAP.
[2019-02-25 08:13] VITALS: BP 134/93
[2019-02-25 08:35] VITALS: BP 116/88
--- NOTE | 2019-02-25 09:34 | EKG ---
[place] [address] ELECTROCARDIOGRAM REPORT Name: JEFF GUZMAN Room: [address] ADM IN .R.#: [id number] Admission: 02/25/19 Attend Phys: Ghulam Jean-Baptiste Discharge: Date of : 61 Report #: [id number] THIS REPORT FOR: //name// [facility] ED Test Date: 2019-02-25 Test Time: 05:34:42 Pat Name: JEFF GUZMAN Department: Room: [facility] Gender: M Senior Front End Engineer: ALYSON : 1965 Requested By: Meredith Hart Order Number: [id number] MD: Jorge Luis Valencia Measurements Intervals [place] Rate: 91 P: 4 DC: 174 QRS: -30 QRSD: 105 T: 158 QT: 379 QTc: 467 Interpretive Statements Sinus tachycardia Multiple premature complexes, vent & supraven LVH with secondary repolarization abnormality Anterior Q waves, possibly due to LVH Compared to ECG 02/18/2019 00:35:52 Left ventricular hypertrophy now present Early repolarization now present Q waves now present Atrial premature complex(es) no longer present Left anterior fascicular block no longer present T-wave abnormality no longer present Prolonged QT interval no longer present Electronically Signed On 02-25-2019 9:34:31 CDT by Jorge Luis Valencia [email or web address] <ELECTRONICALLY SIGNED> By: Jorge Luis Valencia MD, FACC 02/25/19933 3 3 Jorge Luis Valencia MD, [facility] /EPI
[2019-02-25 12:00] VITALS: BP 131/96
[2019-02-25 16:00] VITALS: BP 131/103
[2019-02-25 20:00] VITALS: BP 112/66
[2019-02-26] VITALS: BP 126/86
[2019-02-26 04:00] VITALS: BP 128/96
[2019-02-26 05:51] LABS: CALCIUM 7.7 mg/dL (8.5-10.1); CREATININE 1.5 mg/dL (0.6-1.3); MAGNESIUM 1.8 mg/dL (1.8-2.4); POTASSIUM 3.1 mmol/L (3.5-5.1)
--- NOTE | 2019-02-26 07:49 | NUR ---
PT WAS IRRITABLE AND UNCOOPERATIVE/MINIMALLY COOPERATIVE MOST OF SHIFT. ASKED A QUESTION ABOUT HIS DIET AND FLUID RESTRICTION THE TOLD STAFF TO "STOP PLAYING MIND GAMES WITH ME. YOU KNOW WHAT IM ASKING." AND PT REFUSED TO TELL STAFF WHAT HE WANTED/NEEDED. PT WAS MINIMALLY COOPERATIVE LATER IN THE SHIFT. IV STOPPED WORKING THIS AM SHORTLY BEFORE SHIFT CHANGE. DAY RN NOTIFED AND CALLED HOT BLAST WORKER.
[2019-02-26 08:02] VITALS: BP 140/92
--- NOTE | 2019-02-26 08:58 | NUR ---
ASSUMED CARE OF PT THIS AM AROUND 07- ELECTRICAL CONTACTS ADJUSTER IN PLACE ORDERED, TRACING SR WITH PAC- UPON ASSESSMENT PT NOTED TO BE RESTING IN BED- PT A&O X4, STUTTER NOTED WITH CONVERSATIONS- CONTINENT OG B/B- ASSIST X1 WITH TRANSFERS- PT NOTED TO BE UNMOTIVATED THIS AM AND NOT WANTING TO TRANSFER TO W/C FOR ORDERED X-RAY, PT NEEDING LOTS OF ENCOURAGEMENT/REINFORCEMENT FOR MOTIVATION- LCTA/DIMINSHED IN BASES- DYSPNEA NOTED ON EXERTION- VSS, O2 SAT 98% ON 3L VIA NC- ABD SOFT/OBESE/NON-TENDER, BS X4 QUADS- UNKNOWN LAST BM PER PT- RUE CENTRAL LINE PLACED THIS AM R/T BEING HARD STICK; C/D/I- F/R OF 2L IN PLACE WITH PT EDUCATION GIVEN- K+ 3.1 THIS SHIFT AND REPLACED PER PROTOCOL WITH REDRAW TO FOLLOW- CALL LIGHT AND PERSONAL BELONGINGS WITH IN REACH- HOURLY ROUNDS IN PLACE R/T SAFETY/NEEDS- ALL NEEDS MET AT THIS TIME-WCTM
[2019-02-26 11:58] VITALS: BP 131/90
--- NOTE | 2019-02-26 15:02 | NUR ---
Cm went to assess, Pt requested that CM come back later, Pt stated "I'm trying to sleep."
[2019-02-26 16:00] VITALS: BP 124/94
--- NOTE | 2019-02-26 17:20 | NUR ---
PT CURRENTLY RESTING IN BED WITH BIPAP IN PLACE R/T C/O ANXIETY THIS SHIFT- COIL FORMER IN PLACE ORDERED, TRACING SR- K+ REPLACED PER PROTOCOL WITH REDRAW NOTED AT 3.6- COREG 6.25 MG BID STARTED WITH 1ST DOSE GIVEN THIS SHIFT- CONTINUING F/R EDUCATION NEEDED AND GIVEN THIS SHIFT R/T NON-COMPLIANCE- PT MAKES NEEDS KNOWN- ALL NEEDS MET AT THIS TIME-WCTM
[2019-02-26 20:00] VITALS: BP 120/90
[2019-02-27 04:00] VITALS: BP 92/62
[2019-02-27 08:00] VITALS: BP 130/94
--- NOTE | 2019-02-27 08:01 | NUR ---
PT AGITATED, NONCOMPLIANT WITH TREATMENT, ARGUMENATIVE WITH STAFF. SECURITY NOTIFED. PT WANTED TO BE LEFT ALONE AND REFUSED VITALS AND LAB DRAW UNTIL HE WOKE UP THIS AM. PT IS SLIGHTLY MORE COOPERATIVE THIS AM. PT DID ASK "TO LEAVE" LAST NIGHT AND NOTIFIED HE WAS MORE THAN [place] TOO IF HE COULD FIND A RIDE. PT STATED "WELL I WONT BE ABLE TO GET ONE UNTIL MORNING." MAINTENANCE ASSOCIATE AND SECURITY WERE NOTIFIED. PT DID NOT MENTION WANTING TO LEAVE SO FAR THIS AM. CALL LIGHT IN REACH. HOURLY ROUNDING FOR SAFETY.
[2019-02-27 08:11] LABS: CALCIUM 8.3 mg/dL (8.5-10.1); CREATININE 1.6 mg/dL (0.6-1.3); MAGNESIUM 1.8 mg/dL (1.8-2.4); POTASSIUM 3.9 mmol/L (3.5-5.1)
--- NOTE | 2019-02-27 10:22 | NUR ---
ASSUMED CARE OF PT AT 0730. PT RESTING IN BED-A&0X4, DENIES ANY PAIN OR SHORTNESS OF BREATH AT THIS TIME. TRACING SR WITH BBB AND PAC'S ON THE MACHINE FEEDER FLOORPERSON. ON 2L NC SAT 96%. PT UP WITH 1 ASSIST. PT GOAL FOR TODAY IS BE COMPLIANT WITH FLUID RESTRICTION-2,000 ML/DAY, COMPLAINCE WITH MEDICATIONS AND TITRATE OXYGEN. PT REQUIRES MOTIVATION AND ENCOURAGEMENT. AM ASSESMENT CHARTED. MEDICATIONS PER JUL. PT REPOSITIONS SELF WITH REMINDERS. HOURLY ROUNDING OBSERVED. BED IN LOW POSITION. CALL LIGHT WITHIN REACH. WILL CONTINUE PLAN OF CARE.
[2019-02-27 11:53] VITALS: BP 139/94
--- NOTE | 2019-02-27 12:49 | NUR ---
Pt is A&O. Resides at home with family. No home o2. Pt has a neb and uses a cane for mobility. No hx of HH or SNF. CM discussed Pt's non compliance with meds, Pt stated that he did not have transportation, but states that he recenty got a car. Pt asked about resources for med delivery. Pt states that he is ready to dc home. Remains on high o2. Following.
[2019-02-27 16:06] VITALS: BP 151/77
--- NOTE | 2019-02-27 18:34 | NUR ---
PT SHOWERED WITH ASSIST TODAY-TOLERATED WELL. COZAAR ADDED PER CARDIOLOGY. REFER TO EMAR. UNABLE TO TITRATE OXYGEN- PT CONTINUES TO BE ON 2L NC. DENIES ANY PAIN THIS AFTERNOON. VISITOR AT BEDSIDE THIS AFTERNOON. MEDICATIONS PER JUL. PT REPOSITIONS SELF.HOURLY ROUNDING OBSERVED. BED IN LOW POSITION. CALL LIGHT WITHIN REACH. WILL CONTINUE PLAN OF CARE.
[2019-02-27 20:00] VITALS: BP 115/65
[2019-02-28] VITALS: BP 103/67
[2019-02-28 04:00] VITALS: BP 138/91
[2019-02-28 05:19] LABS: HEMATOCRIT 32.9 % (42.0-52.0); MCHC 33.3 g/dL (28.0-37.0); MPV 8.1 fl. (7.2-11.1); RBC 3.66 mil/uL (4.50-6.00); RDW-CV 17.2 % (10.5-14.5); WBC 5.8 thou/uL (4.0-11.0)
[2019-02-28 05:38] LABS: CALCIUM 7.9 mg/dL (8.5-10.1); CREATININE 1.6 mg/dL (0.6-1.3); POTASSIUM 3.4 mmol/L (3.5-5.1)
[2019-02-28 07:50] VITALS: BP 126/96
[2019-02-28 08:44] VITALS: BP 126/96
--- NOTE | 2019-02-28 10:39 | EKG ---
[place] [address] ELECTROCARDIOGRAM REPORT Name: JEFF GUZMAN Room: [address] ADM IN M.R.#: [id number] Admission: 02/25/19 Attend Phys: Ghulam Jean-Baptiste Discharge: Date of : 61 Report #: [id number] THIS REPORT FOR: //name// [facility] Test Date: 2019-02-27 Test Time: 21:51:34 Pat Name: JEFF GUZMAN Department: Room: [address] Gender: M [employer]: [id number] : 1965 Requested By: Wilder Zacarias Order Number: [id number] Reading MD: Meliton Juarez Measurements Intervals [place] Rate: 85 P: 52 NM: 190 QRS: -50 QRSD: 96 T: 102 QT: 385 QTc: 458 Interpretive Statements Sinus rhythm Supraventricular bigeminy poor r wave progression LAD, consider left anterior fascicular block LVH with secondary repolarization abnormality Compared to ECG 02/25/2019 05:34:42 Atrial premature complex(es) now present Sinus tachycardia no longer present Electronically Signed On 02-28-2019 10:39:05 CDT by Meliton Juarez [email or web address] <ELECTRONICALLY SIGNED> By: Meliton Juarez MD, FACC 02/28/19 1039 50 50 Meliton Juarez MD, FACC /EPI
[2019-02-28] MEDS ORDERED: SPIRONOLACTONE25 MG PO (13:50)
[2019-02-28] MEDS ORDERED: COZAAR 50 MG TA50 M1 PO (14:05)
[2019-02-28] MEDS ORDERED: COREG6.25 MG PO (14:05)
--- NOTE | 2019-02-28 14:26 | NUR ---
Pt discharging to home today. BERHANE contacted Pt's PCP office to schedule a post dc appt, awaiting call back, updated Dr. Informed Dr that CM provided with info on how to get mail RX services through is insurance, informed Dr that Pt has to initiate in order to start the mail order service.
--- NOTE | 2019-02-28 15:00 | NUR ---
PT REMAINED ALERT AND ORIENTED. IV AND MIDLINE REMOVED. PT BELONGINGS GATHERED. PT GIVEN BOX LUNCH TO GO. FALL RISK PRECAUTIONS IN PLACE. HOURLY ROUNDING COMPLETED. PT LEFT VIA WHEELCHAIR WITH NURSING STAFF TO HOME WITH CAB VOUCHER.
== END 2019-02-28 15:01 | disposition home or self-care (01) | DRG 291 ==
LOC: M.ERS 05:01 → M.2W 06:07 → M.TBA-ER 06:07 → M.2W 08:33
PROVIDERS: Emergency Medicine; Family Medicine; Internal Medicine; ADMIT Internal Medicine
PROC: 5A09357 Assistance with Respiratory Ventilation, Less than 24 Consecutive Hours, Continuous Positive Airway Pressure (ICD-10-PCS; principal; 2019-02-25)
DX: I13.0 Hypertensive heart and chronic kidney disease with heart failure and stage 1 through stage 4 chronic kidney disease, or unspecified chronic kidney disease (principal); J96.01 Acute respiratory failure with hypoxia; I50.43 Acute on chronic combined systolic (congestive) and diastolic (congestive) heart failure; N18.3 Chronic kidney disease, stage 3 (moderate); M19.90 Unspecified osteoarthritis, unspecified site; J44.9 Chronic obstructive pulmonary disease, unspecified; I25.10 Atherosclerotic heart disease of native coronary artery without angina pectoris; F17.210 Nicotine dependence, cigarettes, uncomplicated; E66.9 Obesity, unspecified; I42.9 Cardiomyopathy, unspecified; F19.10 Other psychoactive substance abuse, uncomplicated; G47.33 Obstructive sleep apnea (adult) (pediatric); Z23 Encounter for immunization; Z86.73 Personal history of transient ischemic attack (TIA), and cerebral infarction without residual deficits; I25.2 Old myocardial infarction; Z68.39 Body mass index [BMI] 39.0-39.9, adult; Z79.82 Long term (current) use of aspirin; Z79.899 Other long term (current) drug therapy; Z91.14 Patient's other noncompliance with medication regimen